=== PATIENT | male | born 1960 | race Caucasian/White ===

== ENCOUNTER 2016-04-23 21:01 | Inpatient (IN) | payer BC ==
[~2016-04-23] VITALS: Ht 165.1 cm; Wt 57.5 kg
[2016-04-23] MEDS ORDERED: ACETAMINOPHEN 325 MG TAB As Ordered ONE (21:35)
[2016-04-23 21:46] LABS: BASO % 0.2 % (0.0-1.0); EOS % 0.1 % (0.0-3.0); LARGE UNSTAINED CELL # 0.2 K/mm3 (0.0-0.4); LARGE UNSTAINED CELL % 1.6 % (0.0-4.0); LYMPH # 2.4 K/mm3 (1.5-4.5); LYMPH % 16.9 % (24.0-44.0); MEAN CORPUSCULAR HEMOGLOBIN 33.1 pg (27.0-33.0); MEAN CORPUSCULAR HGB CONC 33.7 g/dl (32.0-36.5); MONO # 0.8 K/mm3 (0.0-0.8); MONO % 5.4 % (0.0-5.0); NEUTROPHILS # 10.8 K/mm3 (1.8-7.7); NEUTROPHILS % 75.8 % (36.0-66.0); PLATELET COUNT, AUTOMATED 270 k/mm3 (150-450); RED CELL DISTRIBUTION WIDTH 13.1 % (11.5-14.5); WHITE BLOOD COUNT 14.2 K/mm3 (4.0-10.0)
[2016-04-23 21:49] LABS: ABG BASE EXCESS -4.9 (-2.0-2.0); ABG DEVICE NASAL CANN; ABG HCO3 18.3 MEQ/L (22.0-26.0); ABG PARTIAL PRESSURE CO2 29.7 mmHg (35.0-45.0); ABG PARTIAL PRESSURE O2 83.7 mmHg (75.0-100.0); ABG STANDARD HCO3 20.5 MEQ/L (22.0-26.0); ABG TOTAL CO2 19.2 MEQ/L (22.0-29.0); ABG pH (ARTERIAL) 7.408 UNITS (7.350-7.450)
[2016-04-23 22:04] LABS: ALBUMIN 3.4 GM/DL (3.2-5.2); ALBUMIN/GLOBULIN RATIO 1.13 (1.00-1.93); ALKALINE PHOSPHATASE 74 U/L (45-117); ALT/SGPT 34 U/L (12-78); ANION GAP 12 MEQ/L (8-16); AST/SGOT 27 U/L (15-37); BILIRUBIN,DIRECT < 0.1 MG/DL (0.0-0.2); BILIRUBIN,TOTAL 0.2 MG/DL (0.2-1.0); BLOOD UREA NITROGEN 15 MG/DL (7-18); CALCIUM LEVEL 8.9 MG/DL (8.5-10.1); CARBON DIOXIDE LEVEL 24 MEQ/L (21-32); CHLORIDE LEVEL 104 MEQ/L (98-107); CREATININE FOR GFR 1.11 MG/DL (0.70-1.30); GLOMERULAR FILTRATION RATE > 60.0 (>56); GLUCOSE, FASTING 115 MG/DL (70-105); POTASSIUM SERUM 3.9 MEQ/L (3.5-5.1); SODIUM LEVEL 140 MEQ/L (136-145); TOTAL PROTEIN 6.4 GM/DL (6.4-8.2)
[2016-04-23] MEDS ORDERED: dexameTHASONE 20 MG/5 ML VIAL (J1100) As Ordered ONE (22:22)
[2016-04-23] MEDS ORDERED: BACTRIM 160MG/800MG DS TAB As Ordered ONE (22:28)
[2016-04-23] MEDS ORDERED: IPRATROPIUM 0.5MG/ALBUTEROL 2.5MG INH SOL UD 3ML (DUONEB)(J7620) As Ordered ONE (22:56)
[2016-04-23] MEDS ORDERED: DOXYCYCLINE HYCLATE 100 MG in D5W MINI-BAG PLUS 100 ML IV SCH (23:00)
[2016-04-24] MEDS ORDERED: guaiFENesin DM LIQ 10ML UD PO SCH (00:45)
[2016-04-24] MEDS ORDERED: ISOVUE-370 76% 100ML VIAL (Q9967) As Ordered ONE (00:48)
--- NOTE | 2016-04-24 01:20 | REPUSA ---
CLINICAL HISTORY: Dyspnea, exclude PE. TECHNIQUE: Multiple incremental axial, coronal and oblique images are obtained from the thoracic inle t to the upper abdomen. Intravenous contrast material was administered as per pulmonary embolism prot ocol. COMMENTS: Bilateral atelectatic changes of the lower lobes with associated groundglass densities. There is excellent opacification of pulmonary arterial system without evidence for pulmonary embolism . Aorta is of normal caliber without evidence for dissection or aneurysm. There is no evidence of pleural or parenchymal mass. There are no pleural effusions. There is no evid ence of hilar or mediastinal lymphadenopathy. The heart and great vessels are within normal limits. Images of the upper abdomen demonstrate no evidence of adrenal mass. The bony structures are free of lytic or blastic lesions. IMPRESSION: No evidence for pulmonary embolism. Bilateral basilar atelectatic pulmonary changes with associated groundglass densities. Atelectasis ve rsus infection. Thank you for your kind referral of this patient.
[2016-04-24] MEDS ORDERED: BREO1INH3 INH (02:44)
[2016-04-24] MEDS ORDERED: SIMV40TA2 PO (02:44)
[2016-04-24] MEDS ORDERED: VITA10002 PO (02:44)
[2016-04-24] MEDS ORDERED: ODEF1TAB PO (02:44)
[2016-04-24] MEDS ORDERED: FIORCAP3 PO (02:44)
[2016-04-24] MEDS ORDERED: ZANT1TAB PO (02:44)
[2016-04-24] MEDS ORDERED: TESS100C PO (02:44)
[2016-04-24] MEDS ORDERED: VITA100066 PO (02:44)
[2016-04-24] MEDS ORDERED: ALBU17IN INH (02:44)
[2016-04-24] MEDS ORDERED: PRED20TA PO (02:44)
[2016-04-24] MEDS ORDERED: NORT50CA PO (02:44)
[2016-04-24] MEDS ORDERED: IPRATROPIUM 0.5MG/ALBUTEROL 2.5MG INH SOL UD 3ML (DUONEB)(J7620) NEB PRN (03:30)
[2016-04-24] MEDS ORDERED: ACETAMINOPHEN TAB 650MG DOSE (2X325MG) PO PRN (03:30)
[2016-04-24] MEDS ORDERED: FIOR1CAP PO (03:40)
[2016-04-24 04:00] VITALS: BP 131/74
--- NOTE | 2016-04-24 04:01 | EDDOCDS ---
Physician Documentation [facility] Name: Timmy Castillo Age: 56 yrs Sex: Male : 1960 Arrival Date: 04/23/2016 Time: 21:01 Bed 10 Private MD: Abdoulaye Disposition: 04/24/16 01:26 Hospitalization ordered by Purnima Perea for Inpatient Admission. Preliminary diagnosis are Acute bronchitis, unspecified, Dyspnea, Acute interstitial pneumonitis. - Bed requested for 5 Sidhu. - Status is Inpatient Admission. af2 - Condition is Stable. - Problem is an ongoing problem. - Symptoms have improved. Historical: - Allergies: No known drug Allergies; - Home Meds: 1. prednisone 20 mg Oral tab 2 tabs once daily 5 days 2. Tessalon Perles 100 mg Oral cap 1 cap 3 times per day 3. Ventolin Rotahaler/Rotacaps 200 mcg Inhl CpDv 200 mcg daily 4. Breo Ellipta 200-25 mcg/dose inhalation dsdv 1 puff once daily 5. nortriptyline 50 mg Oral cap 1 cap once daily 6. simvastatin 40 mg Oral tab 1 tab once daily 7. Fioricet 50-325-40 mg Oral tab 1 tab as needed 8. Vitamin B-12 2,000 mcg Oral TbER daily 9. Vitamin D Oral 1000 unit daily 10. Zantac 150 mg Oral tab 1 tab once daily 11. odefsey 1 tab daily - PMHx: High Cholesterol; HIV; Migraine Headaches; - PSHx: hernia repair x2; left rotator cuff; Right Rotator Cuff; Orchiectomy- Right; eye biopsy; - Social history: Smoking status: Patient uses tobacco products, current every day smoker. No barriers to communication noted, The patient speaks fluent Cambodian. - Family history: Not pertinent. - : The pt / caregiver states he / she is not on anticoagulants. Home medication list is obtained from the patient. - Exposure Risk Screening:: None identified. Vital Signs: 04/23 21:05 BP 123 / 78 (auto/); af2 21:07 Pulse 138 MON; Pulse Ox 99% ; af2 21:09 BP 123 / 78; Pulse 137; Resp 20; Temp 101.9(TE); Pulse Ox 99% ; Weight 58.97 kg / faby 130.01 lbs (R); Height 5 ft. 5 in. (165.10 cm) (R); Pain 0/10; 23:07 BP 124 / 66 (auto/); af2 23:07 Pulse 134 MON; Pulse Ox 97% ; af2 23:13 Pulse 138; bb3 23:37 Pulse 132 MON; Pulse Ox 90% ; af2 23:37 BP 115 / 59 (auto/); af2 04/24 00:07 BP 118 / 63 (auto/); af2 00:07 Pulse 134 MON; Pulse Ox 93% ; af2 00:27 Temp 98.3(O); af2 00:37 BP 124 / 71 (auto/); af2 00:59 Pulse 134 MON; Resp 28 S; Pulse Ox 95% on R/A; af2 01:07 BP 113 / 60 (auto/); af2 01:07 Pulse 130 MON; Resp 26 S; Pulse Ox 95% on R/A; af2 01:37 BP 121 / 73 (auto/); af2 01:37 Pulse 130 MON; Resp 26 S; Pulse Ox 94% on R/A; af2 02:07 BP 121 / 78 (auto/); af2 02:07 Pulse 130 MON; Pulse Ox 93% ; af2 02:37 Pulse 118 MON; Pulse Ox 96% ; af2 02:37 BP 106 / 58 (auto/); af2 03:07 BP 126 / 81 (auto/); af2 03:07 Pulse 124 MON; Resp 22 S; Temp 99.0(TE); Pulse Ox 96% ; af2 04/23 21:09 Body Mass Index 21.63 (58.97 kg, 165.10 cm) faby 04/23 21:09 RN aware of temp faby MDM: 21:17 ECG WITH READING ER PHYS+CARDIAG ordered. EDMS 21:27 Acetaminophen Tablet 975 mg PO once ordered. cs11 21:27 Call Respiratory ordered. cs11 21:28 -Arterial Blood Gas: room air Ordered. EDMS 21:28 -Blood Culture (Adults Only), peripheral from different site, or from device/port/PICC cs11 etc. if present ordered. 21:29 -Blood Culture Ordered. EDMS 21:29 Lactic Acid (Velásquez tube on ice) Ordered. EDMS 21:29 CBC with Diff Ordered. EDMS 21:29 MED Profile Ordered. EDMS 21:29 Liver Profile Ordered. EDMS 21:29 NS 0.9% 1000 ml IV at bolus once ordered. cs11 21:33 Call Respiratory complete. tmm1 21:34 Chest, 2 View (pa\E\lat) Ordered. EDMS 21:43 -Blood Culture (Adults Only), peripheral from different site, or from device/port/PICC tmm1 etc. if present complete. 21:44 BLOOD CULTURES Ordered. EDMS 22:00 -Arterial Blood Gas: room air Reviewed. cs11 22:00 CBC with Diff Reviewed. cs11 22:03 -Influenza A&B Rapid Antigen - Nose Ordered. EDMS 22:13 Lactic Acid (Velásquez tube on ice) Reviewed. cs11 22:13 MED Profile Reviewed. cs11 22:13 Liver Profile Reviewed. cs11 22:19 Albuterol-Ipratropium 1 neb Nebulizer every 20 minutes x3 ordered. cs11 22:19 Call Respiratory ordered. cs11 22:19 Dexamethasone 10 mg IV at bolus once ordered. cs11 22:21 Call Respiratory complete. tmm1 22:22 Doxycycline 100 mg IVPB once over 1 hrs; dilute in NS or D5W ordered. cs11 22:22 Trimethoprim-Sulfamethoxazole 160 mg-800 mg (DS) 1 tabs PO once ordered. cs11 22:27 Financial registration complete. [email or web address] 22:37 [facility] Payment Agreement was scanned into [employer] and attached to record. [email or web address] 23:42 -Influenza A&B Rapid Antigen - Nose Reviewed. cs11 01/02 00:10 Dextromethorphan-Guaifenesin Liquid 10 mg-100 mg/5 mL 10 ml PO once ordered. cs11 00:33 CT Chest Angio R/O PE Ordered. EDMS 01:27 BED REQUEST+ADM ordered. EDMS 03:30 LACTIC ACID LEVEL, LACTATE Ordered. EDMS 03:32 Admission / Observation Status ordered. EDMS 03:32 Admission / Observation Status ordered. EDMS 03:33 REGULAR DIET ordered. EDMS Administered Medications: 04/23 21:40 Drug: NS 0.9% 1000 ml [sodium chloride 0.9 % intravenous solution] Route: IV; Rate: af2 bolus; Site: left antecubital; 21:43 Drug: Acetaminophen 975 mg [acetaminophen 325 mg tablet (3 tabs)] Route: PO; af2 22:29 Drug: Dexamethasone 10 mg [dexamethasone 4 mg/mL injection solution] Route: IV; Rate: af2 bolus; Site: left antecubital; 04/24 01:00 Follow up: IV Status: Completed infusion af2 04/23 22:34 Drug: Trimethoprim-Sulfamethoxazole 1 tabs [sulfamethoxazole 800 mg-trimethoprim 160 mg [facility] tablet (1 tabs)] Route: PO; 04/24 01:00 Follow up: Response: No Adverse Reaction af2 04/23 22:50 Drug: Albuterol-Ipratropium 1 neb [ipratropium-albuterol 0.5 mg-3 mg(2.5 mg base)/3 mL bb3 nebulization soln (1 neb)] Route: Nebulizer; 23:13 Follow up: Pulse 138 bpm; lung sounds with small change in aeration. lung sounds with bb3 scattered coarse crackles and rhonchi. Pt had slight tremors after second neb tx. Pulse rate increased only by 8-10 bpm. Third neb withheld and will re-assess patient within 30 min. 22:50 Drug: Albuterol-Ipratropium 1 neb [ipratropium-albuterol 0.5 mg-3 mg(2.5 mg base)/3 mL bb3 nebulization soln (1 neb)] Route: Nebulizer; 22:59 Drug: Doxycycline 100 mg Route: IVPB; Infused Over: 1 hrs; Site: left antecubital; [facility] 23:39 Drug: Albuterol-Ipratropium 1 neb [ipratropium-albuterol 0.5 mg-3 mg(2.5 mg base)/3 mL bb3 nebulization soln (1 neb)] Route: Nebulizer; 23:48 Follow up: lung sounds with crackles throughout RML RLL LLL bb3 04/24 00:59 Drug: Dextromethorphan-Guaifenesin 10 ml [dextromethorphan-guaifenesin 10 mg-100 mg/5 af2 mL oral liquid (10 mL)] Route: PO; Signatures: Dispatcher [employer] Ashley Reyes, RN RN Scooter Loredo, DO cs11 McLear, Shelby, MANAGER FASHION MANAGER FASHION tmm1 Sruthi Sanchez RN RN af2 Bonnie Saavedra, Reg Reg [email or web address] Jose Combs bb3 Lissa Mcdowell RN [facility] The chart was reviewed and I authenticate all verbal orders and agree with the evaluation and treatment provided.Attachments: 04/23 22:37 [facility] Payment Agreement [email or web address]
--- NOTE | 2016-04-24 04:01 | EDDOCDS ---
Nurse's Notes [facility] Name: Timmy Castillo Age: 56 yrs Sex: Male : 1960 Arrival Date: 04/23/2016 Time: 21:01 Bed 10 Private MD: Abdoulaye Diagnosis: Acute bronchitis, unspecified;Dyspnea;Acute interstitial pneumonitis Presentation: 04/23 21:09 Presenting complaint: EMS states: pt has been treated for bronchitis for 5 weeks, af2 reports no improvement, increased difficulty breathing today. Adult Sepsis Screening: The patient does not have new or worsening altered mentation. Patient has a respiratory rate of greater than or equal to 22 (1 point). Systolic blood pressure is greater than 100. Patient has a qSOFA score of 1- Negative Sepsis Screen. Suicide/Homicide risk assessment- the patient denies having any suicidal and/or homicidal ideations and does not present with any other emotional, behavioral or mental health complaints. Status: Patient is not a social worker health services or dependent. Transition of care: patient was not received from another setting of care. 21:09 Method Of Arrival: Ambulance af2 21:09 Acuity: BILL Level 3 af2 21:17 Care prior to arrival: See EMS report. Medications administered prior to arrival: af2 Nebulized Albuterol, Solumedrol, IV initiated. Saline lock initiated. Oxygen administered by EMS. 21:45 Acuity level changed due to complexity of care. af2 21:45 Acuity: BILL Level 2 af2 Triage Assessment: 21:14 General: Appears ill, Behavior is cooperative. Pain: Location: posterior aspect of af2 right shoulder Pain currently is 4 out of 10 on a pain scale. HIV screening NA for this visit Offered previously. Respiratory: Onset: The symptoms/episode began/occurred 5 weeks, Airway is patent Respiratory effort is even, Respiratory pattern is tachypnea Breath sounds are clear bilaterally. Reports shortness of breath cough that is. Derm: Skin is normal. Historical: - Allergies: No known drug Allergies; - Home Meds: 1. prednisone 20 mg Oral tab 2 tabs once daily 5 days 2. Tessalon Perles 100 mg Oral cap 1 cap 3 times per day 3. Ventolin Rotahaler/Rotacaps 200 mcg Inhl CpDv 200 mcg daily 4. Breo Ellipta 200-25 mcg/dose inhalation dsdv 1 puff once daily 5. nortriptyline 50 mg Oral cap 1 cap once daily 6. simvastatin 40 mg Oral tab 1 tab once daily 7. Fioricet 50-325-40 mg Oral tab 1 tab as needed 8. Vitamin B-12 2,000 mcg Oral TbER daily 9. Vitamin D Oral 1000 unit daily 10. Zantac 150 mg Oral tab 1 tab once daily 11. odefsey 1 tab daily - PMHx: High Cholesterol; HIV; Migraine Headaches; - PSHx: hernia repair x2; left rotator cuff; Right Rotator Cuff; Orchiectomy- Right; eye biopsy; - Social history: Smoking status: Patient uses tobacco products, current every day smoker. No barriers to communication noted, The patient speaks fluent Micronesian. - Family history: Not pertinent. - : The pt / caregiver states he / she is not on anticoagulants. Home medication list is obtained from the patient. - Exposure Risk Screening:: None identified. Screenin:18 Screening information is obtained from the patient. Fall risk: No risks identified. af2 Assistance ADL's: requires no assistance with activities of daily living. Abuse/DV Screen: The patient / caregiver reports he/she is: not in a situation that causes fear, pain or injury. Nutritional screening: No deficits noted. Advance Directives: Advance directive information has been placed on a prior [facility] medical record, but the patient/ family does not know when. home support is adequate. Assessment: 21:41 General: Appears in no apparent distress, distressed, Behavior is cooperative. af2 Neurological: Level of Consciousness is awake, alert, Oriented to person, place, time. Cardiovascular: Heart tones S1 S2 present Rhythm is sinus tachycardia No ectopy. Respiratory: Airway is patent Respiratory effort is even, labored, Breath sounds are clear bilaterally. Derm: Skin is diaphoretic, Skin is pink, Skin temperature is hot. 22:16 General: Appears in no apparent distress, Behavior is cooperative, pt transported to CT af2 at this time. tolerated procedure well.. Neurological: Level of Consciousness is awake, alert, obeys commands, Oriented to person, place, time. Cardiovascular: Heart tones S1 S2 present Rhythm is sinus tachycardia No ectopy. Respiratory: Airway is patent Respiratory effort is even, labored, Reports shortness of breath cough that is. 23:05 General: Appears in no apparent distress, Behavior is cooperative, pt seated upright af2 position, states that is position of comfort. RT at bedside.. Neurological: Level of Consciousness is awake, alert. Respiratory: Airway is patent Respiratory effort is even, unlabored. Derm: Skin is normal. 23:54 General: Appears in no apparent distress, Behavior is cooperative. Neurological: Level af2 of Consciousness is awake, alert, obeys commands, Oriented to person, place, time. Cardiovascular: Rhythm is sinus tachycardia No ectopy. Respiratory: Airway is patent Respiratory effort is even, unlabored. Derm: Skin is normal. 04/24 01:01 General: Appears in no apparent distress, Behavior is cooperative, pt returned from CT af2 at this time, tolerated procedure well. piv patent, clear.. Neurological: Level of Consciousness is awake, alert, obeys commands. Cardiovascular: Rhythm is sinus tachycardia No ectopy. Respiratory: Airway is patent Respiratory effort is even, unlabored, Respiratory pattern is tachypnea. Derm: Skin is normal. 02:00 General: Appears in no apparent distress, Behavior is cooperative. Neurological: Level af2 of Consciousness is awake, alert, obeys commands, Oriented to person, place, time. Respiratory: Airway is patent Respiratory effort is even, unlabored. Derm: Skin is normal. 03:28 General: Appears in no apparent distress, Behavior is cooperative. Neurological: Level af2 of Consciousness is awake, alert, obeys commands, Oriented to person, place, time. Respiratory: Airway is patent Respiratory effort is even, unlabored. Derm: Skin is normal. Vital Signs: 04/23 21:05 BP 123 / 78 (auto/); af2 21:07 Pulse 138 MON; Pulse Ox 99% ; af2 21:09 BP 123 / 78; Pulse 137; Resp 20; Temp 101.9(TE); Pulse Ox 99% ; Weight 58.97 kg (R); faby Height 5 ft. 5 in. (165.10 cm) (R); Pain 0/10; 23:07 BP 124 / 66 (auto/); af2 23:07 Pulse 134 MON; Pulse Ox 97% ; af2 23:13 Pulse 138; bb3 23:37 Pulse 132 MON; Pulse Ox 90% ; af2 23:37 BP 115 / 59 (auto/); af2 04/24 00:07 BP 118 / 63 (auto/); af2 00:07 Pulse 134 MON; Pulse Ox 93% ; af2 00:27 Temp 98.3(O); af2 00:37 BP 124 / 71 (auto/); af2 00:59 Pulse 134 MON; Resp 28 S; Pulse Ox 95% on R/A; af2 01:07 BP 113 / 60 (auto/); af2 01:07 Pulse 130 MON; Resp 26 S; Pulse Ox 95% on R/A; af2 01:37 BP 121 / 73 (auto/); af2 01:37 Pulse 130 MON; Resp 26 S; Pulse Ox 94% on R/A; af2 02:07 BP 121 / 78 (auto/); af2 02:07 Pulse 130 MON; Pulse Ox 93% ; af2 02:37 Pulse 118 MON; Pulse Ox 96% ; af2 02:37 BP 106 / 58 (auto/); af2 03:07 BP 126 / 81 (auto/); af2 03:07 Pulse 124 MON; Resp 22 S; Temp 99.0(TE); Pulse Ox 96% ; af2 04/23 21:09 Body Mass Index 21.63 (58.97 kg, 165.10 cm) faby 04/23 21:09 RN aware of temp faby Vitals: 04/24 03:48 Log In Time N/A - ambulance arrival. af2 ED Course: 04/23 21:02 Patient visited by Shelby Daily PCA. tmm1 21:02 Abdoulaye is Private Physician. tmm1 21:02 Patient moved to Waiting tmm1 21:03 Sruthi Sanchez,RN is Primary Nurse. tmm1 21:03 Patient moved to 10 tmm1 21:07 Scooter Weathers DO is Attending Physician. cs11 21:07 Patient visited by Scooter Weathers DO. cs11 21:09 Pt greeted and oriented to ED. Patient advised of names of staff involved in care, faby location of call [place], wait times and NPO status. Accompanied by Significant Other, Patient has correct armband on for positive identification. Placed in gown. Bed in low position. Call light in reach. Side rails up X2. tipple engineer on. Pulse ox on. NIBP on. 21:10 Patient visited by Savi Akhtar PCA. faby 21:11 Triage Initiated af2 21:18 The patient / caregiver is instructed regarding the plan of care and ED course. af2 21:18 Inserted saline lock: 18 gauge in left antecubital area The patient tolerated the af2 procedure well. 21:23 EKG done. (by ED staff). Reviewed by Scooter Weathers DO. faby 21:24 Patient visited by Savi Akhtar PCA. faby 21:41 Patient visited by Sruthi Sanchez RN. af2 21:45 -Arterial Blood Gas: room air Sent. bb3 21:46 Patient visited by Sruthi Sanchez RN. af2 22:06 Notified attending ED physician of Critical lab value. sls1 22:30 Patient visited by Sruthi Sanchez RN. af2 22:37 [facility] Payment Agreement was scanned into [facility] and attached to record. ks16 22:55 -Influenza A&B Rapid Antigen - Nose Sent. af2 23:05 Patient visited by Sruthi Sanchez RN. af2 23:07 Patient visited by Sruthi Sanchez RN. af2 23:54 Patient visited by Sruthi Sanchez RN. af2 01 00:25 Patient visited by Sruthi Sanchez RN. af2 00:25 Patient visited by Sruthi Sanchez RN. af2 00:28 Patient visited by Sruthi Sanchez RN. af2 01:02 Patient visited by Sruthi Sanchez RN. af2 01:23 Purnima Perea is Hospitalizing Provider. cs11 01:23 CT Chest Angio R/O PE Returned. EDMS 01:50 Patient visited by Sruthi Sanchez RN. af2 03:29 Patient visited by Sruhti Sanchez RN. af2 03:49 No procedures done that require assistance. af2 03:52 Patient visited by Sruthi Sanchez RN. af2 Administered Medications: 04/23 21:40 Drug: NS 0.9% 1000 ml [sodium chloride 0.9 % intravenous solution] Route: IV; Rate: af2 bolus; Site: left antecubital; 21:43 Drug: Acetaminophen 975 mg [acetaminophen 325 mg tablet (3 tabs)] Route: PO; af2 22:29 Drug: Dexamethasone 10 mg [dexamethasone 4 mg/mL injection solution] Route: IV; Rate: af2 bolus; Site: left antecubital; 04/24 01:00 Follow up: IV Status: Completed infusion af2 04/23 22:34 Drug: Trimethoprim-Sulfamethoxazole 1 tabs [sulfamethoxazole 800 mg-trimethoprim 160 mg [facility] tablet (1 tabs)] Route: PO; 04/24 01:00 Follow up: Response: No Adverse Reaction af2 04/23 22:50 Drug: Albuterol-Ipratropium 1 neb [ipratropium-albuterol 0.5 mg-3 mg(2.5 mg base)/3 mL bb3 nebulization soln (1 neb)] Route: Nebulizer; 23:13 Follow up: Pulse 138 bpm; lung sounds with small change in aeration. lung sounds with bb3 scattered coarse crackles and rhonchi. Pt had slight tremors after second neb tx. Pulse rate increased only by 8-10 bpm. Third neb withheld and will re-assess patient within 30 min. 22:50 Drug: Albuterol-Ipratropium 1 neb [ipratropium-albuterol 0.5 mg-3 mg(2.5 mg base)/3 mL bb3 nebulization soln (1 neb)] Route: Nebulizer; 22:59 Drug: Doxycycline 100 mg Route: IVPB; Infused Over: 1 hrs; Site: left antecubital; [facility] 23:39 Drug: Albuterol-Ipratropium 1 neb [ipratropium-albuterol 0.5 mg-3 mg(2.5 mg base)/3 mL bb3 nebulization soln (1 neb)] Route: Nebulizer; 23:48 Follow up: lung sounds with crackles throughout RML RLL LLL bb3 04/24 00:59 Drug: Dextromethorphan-Guaifenesin 10 ml [dextromethorphan-guaifenesin 10 mg-100 mg/5 af2 mL oral liquid (10 mL)] Route: PO; Intake: RT: 04/23 21:45 ABG's drawn from left radial artery pressure held for 5 minutes no bleeding noted bb3 pressure bandage applied specimen sent pt. tolerated well. Oxygen is room air. 22:49 Initial Med Neb Given as ordered Patient was instructed and evaluated on procedure bb3 Subsequent Med Neb Given as ordered Patient was reinforced on procedure. 22:50 Respiratory: Respiratory effort is even, Respiratory pattern is regular symmetrical, bb3 scattered rhonchi with bilateral LL rales. Pt has a strong hacking productive cough with clear thick sputum. 23:11 Respiratory: lung sounds with small change in aeration. lung sounds with scattered bb3 coarse crackles and rhonchi. Pt had slight tremors after second neb tx. Pulse rate increased only by 8-10 bpm. Third neb withheld and will re-assess patient within 30 min. 23:39 Subsequent Med Neb Given as ordered. bb3 23:47 Respiratory: strong congested productive cough Breath sounds with crackles in left bb3 posterior lower lobe, right posterior middle lobe and right posterior lower lobe. Order Results: Lab Order: -Arterial Blood Gas: room air; SPEC'M 04/23/16 21:36 Test: ABG pH (ARTERIAL); Value: 7.408; Range: 7.350-7.450; Units: UNITS; Status: F Test: ABG PARTIAL PRESSURE CO2; Value: 29.7; Range: 35.0-45.0; Abnormal: Below low normal; Units: mmHg; Status: F Test: ABG PARTIAL PRESSURE O2; Value: 83.7; Range: 75.0-100.0; Units: mmHg; Status: F Test: ABG TOTAL CO2; Value: 19.2; Range: 22.0-29.0; Abnormal: Below low normal; Units: MEQ/L; Status: F Test: ABG HCO3; Value: 18.3; Range: 22.0-26.0; Abnormal: Below low normal; Units: MEQ/L; Status: F Test: ABG BASE EXCESS; Value: -4.9; Range: -2.0-2.0; Abnormal: Below low normal; Status: F Test: ABG STANDARD HCO3; Value: 20.5; Range: 22.0-26.0; Abnormal: Below low normal; Units: MEQ/L; Status: F Test: ABG O2 SATURATION; Value: 97.1; Range: 95.0-99.0; Units: %; Status: F Test: ABG DEVICE; Value: NASAL ALISON; Status: F Lab Order: Lactic Acid (Velásquez tube on ice); SPEC'M 04/23/16 21:31 Test: LACTIC ACID LEVEL, LACTATE; Value: 4.1; Range: 0.4-2.0; Abnormal: Above upper panic limits; Units: MMOL/L; Status: F Lab Order: CBC with Diff; SPEC'M 04/23/16 21:31 Test: WHITE BLOOD COUNT; Value: 14.2; Range: 4.0-10.0; Abnormal: Above high normal; Units: K/mm3; Status: F Test: RED BLOOD COUNT; Value: 4.62; Range: 4.30-6.10; Units: M/mm3; Status: F Test: HEMOGLOBIN; Value: 15.3; Range: 14.0-18.0; Units: g/dl; Status: F Test: HEMATOCRIT; Value: 45.3; Range: 42.0-52.0; Units: %; Status: F Test: MEAN CORPUSCULAR VOLUME; Value: 98.0; Range: 80.0-96.0; Abnormal: Above high normal; Units: fl; Status: F Test: MEAN CORPUSCULAR HEMOGLOBIN; Value: 33.1; Range: 27.0-33.0; Abnormal: Above high normal; Units: pg; Status: F Test: MEAN CORPUSCULAR HGB CONC; Value: 33.7; Range: 32.0-36.5; Units: g/dl; Status: F Test: RED CELL DISTRIBUTION WIDTH; Value: 13.1; Range: 11.5-14.5; Units: %; Status: F Test: PLATELET COUNT, AUTOMATED; Value: 270; Range: 150-450; Units: k/mm3; Status: F Test: NEUTROPHILS %; Value: 75.8; Range: 36.0-66.0; Abnormal: Above high normal; Units: %; Status: F Test: LYMPH %; Value: 16.9; Range: 24.0-44.0; Abnormal: Below low normal; Units: %; Status: F Test: MONO %; Value: 5.4; Range: 0.0-5.0; Abnormal: Above high normal; Units: %; Status: F Test: EOS %; Value: 0.1; Range: 0.0-3.0; Units: %; Status: F Test: BASO %; Value: 0.2; Range: 0.0-1.0; Units: %; Status: F Test: LARGE UNSTAINED CELL %; Value: 1.6; Range: 0.0-4.0; Units: %; Status: F Test: NEUTROPHILS #; Value: 10.8; Range: 1.8-7.7; Abnormal: Above high normal; Units: K/mm3; Status: F Test: LYMPH #; Value: 2.4; Range: 1.5-4.5; Units: K/mm3; Status: F Test: MONO #; Value: 0.8; Range: 0.0-0.8; Units: K/mm3; Status: F Test: EOS #; Value: 0.0; Range: 0.0-0.50; Units: K/mm3; Status: F Test: BASO #; Value: 0.0; Range: 0.0-0.2; Units: K/mm3; Status: F Test: LARGE UNSTAINED CELL #; Value: 0.2; Range: 0.0-0.4; Units: K/mm3; Status: F Lab Order: MED Profile; SPEC'M 04/23/16 21:31 Test: GLUCOSE, FASTING; Value: 115; Range: 70-105; Abnormal: Above high normal; Units: MG/DL; Status: F Test: BLOOD UREA NITROGEN; Value: 15; Range: 7-18; Units: MG/DL; Status: F Test: CREATININE FOR GFR; Value: 1.11; Range: 0.70-1.30; Units: MG/DL; Status: F Test: GLOMERULAR FILTRATION RATE; Value: > 60.0; Range: >56; Status: F Test: SODIUM LEVEL; Value: 140; Range: 136-145; Units: MEQ/L; Status: F Test: POTASSIUM SERUM; Value: 3.9; Range: 3.5-5.1; Units: MEQ/L; Status: F Test: CHLORIDE LEVEL; Value: 104; Range: 98-107; Units: MEQ/L; Status: F Test: CARBON DIOXIDE LEVEL; Value: 24; Range: 21-32; Units: MEQ/L; Status: F Test: ANION GAP; Value: 12; Range: 8-16; Units: MEQ/L; Status: F Test: CALCIUM LEVEL; Value: 8.9; Range: 8.5-10.1; Units: MG/DL; Status: F Test Note: ; Units are mL/min/1.73 m2 Chronic Kidney Disease Staging per NKF: Stage I & II GFR >=60 Normal to Mildly Decreased Stage III GFR 30-59 Moderately Decreased Stage IV GFR 15-29 Severely Decreased Stage V GFR <15 Very Little GFR Left ESRD GFR <15 on SECURITIES UNDERWRITER Lab Order: Liver Profile; SPEC'M 04/23/16 21:31 Test: AST/SGOT; Value: 27; Range: 15-37; Units: U/L; Status: F Test: ALT/SGPT; Value: 34; Range: 12-78; Units: U/L; Status: F Test: ALKALINE PHOSPHATASE; Value: 74; Range: 45-117; Units: U/L; Status: F Test: BILIRUBIN,TOTAL; Value: 0.2; Range: 0.2-1.0; Units: MG/DL; Status: F Test: BILIRUBIN,DIRECT; Value: < 0.1; Range: 0.0-0.2; Units: MG/DL; Status: F Test: TOTAL PROTEIN; Value: 6.4; Range: 6.4-8.2; Units: GM/DL; Status: F Test: ALBUMIN; Value: 3.4; Range: 3.2-5.2; Units: GM/DL; Status: F Test: ALBUMIN/GLOBULIN RATIO; Value: 1.13; Range: 1.00-1.93; Status: F Lab Order: -Influenza A&B Rapid Antigen - Nose; SPEC'M 04/23/16 22:51 Test: INFLUENZA A RAPID SCR by ICA; Value: INFLUENZA A RESULTS NEGATIVE; Status: F Test: INFLUENZA A RAPID SCR by ICA; Value: Comments:; Status: F Test: INFLUENZA B RAPID SCR by ICA; Value: INFLUENZA B RESULTS NEGATIVE; Status: F Test Note: ; The Influenza test is a direct rapid immunoassay for the qualitative detection of Influenza viral antigen. Cell culture (Viral Culture) testing should be considered to confirm NEGATIVE results and to assist in detecting other viruses that can provide similar clinical symptoms. Please contact the lab within 24 hours ([phone]) if confirmatory testing is desired. Radiology Order: CT Chest Angio R/O PE Test: CT Chest Angio R/O PE REASON FOR EXAMINATION: Shortness of Breath; ; CLINICAL HISTORY: Dyspnea, exclude PE.; TECHNIQUE: Multiple incremental axial, coronal and oblique images are obtained from the thoracic inle; t to the upper abdomen. Intravenous contrast material was administered as per pulmonary embolism prot; ocol.; COMMENTS:; Bilateral atelectatic changes of the lower lobes with associated groundglass densities.; There is excellent opacification of pulmonary arterial system without evidence for pulmonary embolism; . Aorta is of normal caliber without evidence for dissection or aneurysm.; There is no evidence of pleural or parenchymal mass. There are no pleural effusions. There is no evid; ence of hilar or mediastinal lymphadenopathy. The heart and great vessels are within normal limits.; Images of the upper abdomen demonstrate no evidence of adrenal mass.; The bony structures are free of lytic or blastic lesions.; IMPRESSION:; No evidence for pulmonary embolism.; Bilateral basilar atelectatic pulmonary changes with associated groundglass densities. Atelectasis ve; rsus infection.; Thank you for your kind referral of this patient.; ; Outcome: 04/24 01:26 Decision to Hospitalize by Provider. cs11 03:48 Discharge Assessment: patient administered narcotics - no. The following High Risk af2 Discharge criteria are identified: None. Admitted to Med/Surg accompanied by tech, via stretcher, with chart. Condition: stable. CT Study completed. Property :Personal belongings accompany Pt. 04:00 Patient left the ED. af2 Signatures: Dispatcher [employer] EDMS Jose Combs bb3 Savi Akhtar, LITHOGRAPHIC PROOFER LITHOGRAPHIC PROOFER Kaur Lowe, RN RN sls1 Lissa McdowellRN RN [facility] Scooter Weathers, DO cs11 Shelby Daily, LITHOGRAPHIC PROOFER LITHOGRAPHIC PROOFER tmm1 Sruthi Sanchez RN RN af2 Bonnie Saavedra, Reg Reg ks16 Corrections: (The following items were deleted from the chart) 03:56 03:07 Pulse 124bpm; Monitor; Pulse Ox 96%; af2 af2 MTDD
[2016-04-24] MEDS: methylPREDNISolone INJ 40 MG/1 ML VIAL (J2920) IV SCH ×2 (05:50→17:05)
[2016-04-24] MEDS: HEPARIN SOD (PORCINE) 5000 UNITS/ML VIAL SC SCH ×3 (05:50→21:42)
[2016-04-24] MEDS: guaiFENesin SYRUP 200 MG/10 ML UDC PO PRN ×2 (05:51→20:27)
[2016-04-24] MEDS ORDERED: SODIUM CHLORIDE 0.9% 1000 ML IV ONE ×3 (07:15→16:45)
[2016-04-24 07:33] LABS: BASO % 0.1 % (0.0-1.0); EOS % 0.1 % (0.0-3.0); LARGE UNSTAINED CELL # 0.1 K/mm3 (0.0-0.4); LARGE UNSTAINED CELL % 0.5 % (0.0-4.0); LYMPH # 0.3 K/mm3 (1.5-4.5); LYMPH % 2.7 % (24.0-44.0); MEAN CORPUSCULAR HEMOGLOBIN 33.5 pg (27.0-33.0); MEAN CORPUSCULAR HGB CONC 33.5 g/dl (32.0-36.5); MEAN CORPUSCULAR VOLUME 100.1 fl (80.0-96.0); MONO # 0.2 K/mm3 (0.0-0.8); MONO % 1.5 % (0.0-5.0); NEUTROPHILS % 95.2 % (36.0-66.0); PLATELET COUNT, AUTOMATED 241 k/mm3 (150-450); RED CELL DISTRIBUTION WIDTH 13.2 % (11.5-14.5); WHITE BLOOD COUNT 10.5 K/mm3 (4.0-10.0)
[2016-04-24 07:44] LABS: ALBUMIN 3.3 GM/DL (3.2-5.2); ALBUMIN/GLOBULIN RATIO 1.1 (1.00-1.93); BILIRUBIN,TOTAL 0.2 MG/DL (0.2-1.0); CALCIUM LEVEL 8.8 MG/DL (8.5-10.1); CREATININE FOR GFR 1.38 MG/DL (0.70-1.30); GLOMERULAR FILTRATION RATE 56.7 (>56); POTASSIUM SERUM 4.1 MEQ/L (3.5-5.1); TOTAL PROTEIN 6.3 GM/DL (6.4-8.2)
[2016-04-24] MEDS: SIMVASTATIN 40 MG TAB PO SCH (07:52)
[2016-04-24] MEDS ORDERED: VANCOMYCIN HCL 1,000 MG, VIAL MATE ADAPTER 1 EACH in D5W 250 ML IV ONE (08:00)
[2016-04-24 08:15] VITALS: BP 135/77
--- NOTE | 2016-04-24 08:32 | PHACANCOPD ---
PHARMACY VANCOMYCIN DOSING Pt Demographics Demographics Patient Age:56 , Weight: , Gender: male Adjusted Body Weight Date: 04/24/16, Adjusted Body Weight: Kg Events Past 24 Hours Events Past 24 Hours: YES: Change in CrCl, Pending Diagnostics Vancomycin Vancomycin indication: ?SEPSIS Vancomycin Target Ranges: 15-20 mcg/ml Vancomycin Load Y/N: Yes Load Dose Date Time Vancomycin Load Dose: 1000MG Date: 04/24/16 Time: 0800 Vancomycin Dose Date: 04/24/16. Current Vancomycin Dose: Intermittent Dosing?: No Labs Labs Item Value Date Time White Blood Count 14.2 K/mm3 H 04/23/16 2131 White Blood Count 10.5 K/mm3 H 04/24/16 0614 Creatinine 1.11 MG/DL 04/23/16 2131 Creatinine 1.38 MG/DL H 04/24/16 0614 Micro Microbiology 04/23/16 Blood Culture, Received Pending 04/23/16 Blood Culture, Received Pending 04/23/16 Influenza Virus Type A Antigen - Final, Complete 04/23/16 Influenza Virus Type B Antigen - Final, Complete Creatinine Clearance Date:04/24/16. Creatinine Clearance: [49]. Assessment and Plan Maintaining Current Dose?: No Reason for dose change: Other Pharmacist Note Pharmacist Note Date: 04/24/16. Pharmacist note: New Vanco consult today. Patient was given Vanco 1gm IV one time as per provider order verified and entered before this consult was finished. Blood cultures are pending. Patient was started on Vancomycin 750mg IV Q12H starting 04/24/16 @ 2000. Trough scheduled for 1900 on 04/25/16. Continue to monitor renal function. Patricia Ball Pharm.D. Apr 24, 2016 08:32
[2016-04-24] MEDS ORDERED: raNITIdine SYRUP 150 MG/10 ML UDC PO SCH (09:00)
[2016-04-24 09:12] LABS: ABG PARTIAL PRESSURE CO2 28.4 mmHg (35.0-45.0); ABG PARTIAL PRESSURE O2 94.9 mmHg (75.0-100.0); ABG STANDARD HCO3 20.4 MEQ/L (22.0-26.0); ABG TOTAL CO2 18.9 MEQ/L (22.0-29.0)
--- NOTE | 2016-04-24 10:08 | ECGEPIP ---
Stationary ECG Study [facility] - ED Test Date: 2016-04-23 Pat Name: ZELDA GALLARDO Department: Room: [place] [address] Gender: M Occupational Therapy Assist: joel : 1960 Requested By: ROBB DOMINIQUE Order Number: [id number] Reading MD: Monse Parks Measurements Intervals [place] Rate: 143 P: 39 AR: 124 QRS: -22 QRSD: 96 T: 36 QT: 304 QTc: 470 Interpretive Statements SINUS TACHYCARDIA, LESS LIKELY ATRIAL FLUTTER BORDERLINE LEFT AXIS DEVIATION NSTTW ABNORMALITY INCREASED RATE 04/15/15 ABNORMAL RHYTHM ECG Electronically Signed On 04-24-2016 10:07:59 EST by Monse Parks
[2016-04-24] MEDS: CEFEPIME HCL 2 GM in D5W MINI-BAG PLUS 50 ML IV SCH ×2 (10:13→21:41)
[2016-04-24] MEDS ORDERED: DOXYCYCLINE HYCLATE 100 MG in D5W MINI-BAG PLUS 100 ML IV SCH (11:00)
[2016-04-24 12:00] VITALS: BP 147/81
--- NOTE | 2016-04-24 13:20 | REP ---
Clinical: Shortness of breath . Comparison: 04/21/2016 . Technique: PA and lateral. Findings: The mediastinum and cardiac silhouette are normal. The lung mcneill are clear and without acute consolidation, effusion, or pneumothorax. The skeletal structures are intact and normal. Impression: 1. No acute cardiopulmonary process. Signed by Tyrell Galindo MD 04/24/2016 01:13 P
[2016-04-24] MEDS: NICOTINE 14 MG/24 HR TRANSDERMAL TD SCH (13:47)
[2016-04-24] MEDS: raNITIdine SYRUP 150 MG/10 ML UDC PO SCH (13:47)
--- NOTE | 2016-04-24 15:05 | IPNPDOC ---
Text Note Date of Service The patient was seen on 04/24/16 at 15:01. NOTE Update: Upon evaluating patient patient was tachypneic, tachycardic, however no use of accessory muscles. It was noted that the patient's lactate was 8.1. Patient was transferred to PCU. Patient had 2 L bolus of normal saline, and started on vancomycin and cefepime for HCAP. Shortness of breath significantly improved. Lactate trended down to 2.5. Patient is now resting comfortably in bed. Still with mild tachycardia. No dyspnea. Continue close observation and repeat lactate. VS,Fishbone, I+O VS, Fishbone, I+O Laboratory Tests 04/23/16 21:31 Red Blood Count 4.62, Mean Corpuscular Volume 98.0 H, Mean Corpuscular Hemoglobin 33.1 H, Mean Corpuscular Hemoglobin Concent 33.7, Red Cell Distribution Width 13.1, Neutrophils (%) (Auto) 75.8 H, Lymphocytes (%) (Auto) 16.9 L, Monocytes (%) (Auto) 5.4 H, Eosinophils (%) (Auto) 0.1, Basophils (%) ( Auto) 0.2, Neutrophils # (Auto) 10.8 H, Lymphocytes # (Auto) 2.4, Monocytes # ( Auto) 0.8, Eosinophils # (Auto) 0.0, Basophils # (Auto) 0.0 04/24/16 06:14 Red Blood Count 4.11 L, Mean Corpuscular Volume 100.1 H, Mean Corpuscular Hemoglobin 33.5 H, Mean Corpuscular Hemoglobin Concent 33.5, Red Cell Distribution Width 13.2, Neutrophils (%) (Auto) 95.2 H, Lymphocytes (%) (Auto) 2.7 L, Monocytes (%) (Auto) 1.5, Eosinophils (%) (Auto) 0.1, Basophils (%) (Auto ) 0.1, Neutrophils # (Auto) 10.0 H, Lymphocytes # (Auto) 0.3 L, Monocytes # ( Auto) 0.2, Eosinophils # (Auto) 0.0, Basophils # (Auto) 0.0, Calcium Level 8.8, Aspartate Amino Transf (AST/SGOT) 39 H, Alanine Aminotransferase (ALT/SGPT) 36, Alkaline Phosphatase 69, Total Bilirubin 0.2, Total Protein 6.3 L, Albumin 3.3 Vital Signs Date Time Temp Pulse Resp B/P Pulse Ox O2 Delivery O2 Flow Rate FiO2 04/24/16 12:48 Nasal Cannula 2.0 04/24/16 12:00 98.6 123 18 147/81 93 I&O- Last 24 Hours up to 6 AM 04/24/16 06:00 Intake Total 360 ml Output Total 200 ml Balance 160 ml MOON LOPES MD Apr 24, 2016 15:05
[2016-04-24] MEDS: NS 1,000 ML IV SCH ×2 (15:14→17:05)
[2016-04-24 15:40] VITALS: BP 140/52
[2016-04-24 16:21] LABS: ANION GAP 11 MEQ/L (8-16); BLOOD UREA NITROGEN 12 MG/DL (7-18); CALCIUM LEVEL 8.7 MG/DL (8.5-10.1); CARBON DIOXIDE LEVEL 22 MEQ/L (21-32); CHLORIDE LEVEL 108 MEQ/L (98-107); CREATININE FOR GFR 0.91 MG/DL (0.70-1.30); GLOMERULAR FILTRATION RATE > 60.0 (>56); GLUCOSE, FASTING 111 MG/DL (70-105); POTASSIUM SERUM 3.9 MEQ/L (3.5-5.1); SODIUM LEVEL 141 MEQ/L (136-145)
--- NOTE | 2016-04-24 16:34 | ECGEPIP ---
Stationary ECG Study [facility] Test Date: 2016-04-24 Pat Name: ZELDA GALLARDO Department: Room: [place] [address] Gender: M Online Marketer: TIFFANY : 1960 Requested By: MOON LOPES Order Number: [id number] Reading MD: Lion Winter Measurements Intervals [place] Rate: 124 P: 48 ID: [id number] QRS: -18 QRSD: 100 T: 33 QT: 324 QTc: 467 Interpretive Statements SINUS TACHYCARDIA NONSPECIFIC T-WAVE ABNORMALITY ABNORMAL RHYTHM ECG LAST TRACING ON 04/23/2016 AT 21:20:05, HEART RATE IS NOW SLOWER OTHERWISE NO SIGNIFICANT CHANGES Electronically Signed On 04-24-2016 16:33:46 EST by Lion Winter
[2016-04-24 19:43] VITALS: BP 142/85
[2016-04-24] MEDS: VANCOMYCIN HCL 750 MG, VIAL MATE ADAPTER 1 EACH in D5W 250 ML IV SCH (20:01)
[2016-04-24] MEDS: ADVAIR DISKUS 500/50 INH PWD INH SCH (20:15)
[2016-04-24] MEDS: ODEFSEY PO SCH (21:00)
[2016-04-24] MEDS: NORTRIPTYLINE 25 MG CAP PO SCH (21:41)
[2016-04-25] VITALS (7 sets, daily range): BP systolic 101–128; BP diastolic 8–89
[2016-04-25 05:34] LABS: BASO # 0.2 K/mm3 (0.0-0.2); EOS % 0.4 % (0.0-3.0); LARGE UNSTAINED CELL # 0.2 K/mm3 (0.0-0.4); LARGE UNSTAINED CELL % 1.9 % (0.0-4.0); LYMPH # 1.8 K/mm3 (1.5-4.5); LYMPH % 12.3 % (24.0-44.0); MEAN CORPUSCULAR HEMOGLOBIN 31.9 pg (27.0-33.0); MEAN CORPUSCULAR HGB CONC 32.4 g/dl (32.0-36.5); MEAN CORPUSCULAR VOLUME 98.5 fl (80.0-96.0); MONO # 0.8 K/mm3 (0.0-0.8); MONO % 6.2 % (0.0-5.0); NEUTROPHILS # 9.6 K/mm3 (1.8-7.7); NEUTROPHILS % 77.3 % (36.0-66.0); PLATELET COUNT, AUTOMATED 232 k/mm3 (150-450); RED CELL DISTRIBUTION WIDTH 14.1 % (11.5-14.5); WHITE BLOOD COUNT 12.4 K/mm3 (4.0-10.0)
[2016-04-25 05:55] LABS: ANION GAP 9 MEQ/L (8-16); BLOOD UREA NITROGEN 12 MG/DL (7-18); CALCIUM LEVEL 8.6 MG/DL (8.5-10.1); CARBON DIOXIDE LEVEL 25 MEQ/L (21-32); CHLORIDE LEVEL 107 MEQ/L (98-107); CREATININE FOR GFR 0.83 MG/DL (0.70-1.30); GLOMERULAR FILTRATION RATE > 60.0 (>56); GLUCOSE, FASTING 102 MG/DL (70-105); POTASSIUM SERUM 3.8 MEQ/L (3.5-5.1); SODIUM LEVEL 141 MEQ/L (136-145)
[2016-04-25] MEDS: methylPREDNISolone INJ 40 MG/1 ML VIAL (J2920) IV SCH ×2 (06:16→18:47)
[2016-04-25] MEDS: HEPARIN SOD (PORCINE) 5000 UNITS/ML VIAL SC SCH ×3 (06:17→21:17)
[2016-04-25] MEDS: NS 1,000 ML IV SCH ×2 (06:17→15:15)
[2016-04-25] MEDS: ADVAIR DISKUS 500/50 INH PWD INH SCH ×2 (07:49→19:50)
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
[2016-04-25] MEDS: VANCOMYCIN HCL 750 MG, VIAL MATE ADAPTER 1 EACH in D5W 250 ML IV SCH (08:11)
[2016-04-25] MEDS ORDERED: LevoFLOXacin 500 MG in APPROPRIATE DILUENT 1 EA IV SCH (09:00)
[2016-04-25] MEDS: CEFEPIME HCL 2 GM in D5W MINI-BAG PLUS 50 ML IV SCH ×2 (09:45→21:17)
[2016-04-25] MEDS: SIMVASTATIN 40 MG TAB PO SCH (09:45)
[2016-04-25] MEDS: NICOTINE 14 MG/24 HR TRANSDERMAL TD SCH (09:45)
[2016-04-25] MEDS: raNITIdine SYRUP 150 MG/10 ML UDC PO SCH (09:46)
--- NOTE | 2016-04-25 13:25 | IPNPDOC ---
Text Note Date of Service The patient was seen on 04/25/16 at 13:15. NOTE Subjective: Patient is a 56 year old male with a PMHx of HIV on HAART (01/2016 - CD4: 600s, VL: UD) who preselected to the ER with shortness of breath, and productive cough. Patient has received an azithromycin pack and prednisone as an outpatient, but failed to improve. Patient was initially admitted for COPD exacerbation, but was later found to have an elevated lactic acid, severely tachypneic and tachycardic. He was found to have HCAP pneumonia. He was started on broad spectrum antibiotics and IV fluid hydration. Patient was seen and examined at the bedside. Clinically he notes improvement in his breathing. He notes that his baseline heart rate is always in the 100s to 110s. Objective: Vitals (see below) General: Lying in bed, no acute distress, AAOx3 HEENT: NC, AT CVS: Tachycardic, regular rhythm, +S1S2 Lungs: Fair air entry b/l, - w/ r/r Abdomen: Soft, ND, NT, +BSx4 Extremities: +PPx4, - edema, - calf tenderness Assessment and plan: 1. Sepsis 2/2 HCAP pneumonia - Clinically has improvement in his breathing - CTA 1/2 - Bilateral basilar atelectatic pulmonary changes with associated groundglass densities. Atelectasis versus infection - Influenza negative; blood cultures negative - Sputum culture and strep / legionella urine antigens pending - Elevated lactic acid has normalized - will c/w Cefepime and Vancomycin (Day #2) - c/w IV fluid hydration 2. Dyspnea - likely 2/2 #1, possibly 2/2 COPD exacerbation - improving - c/w solumedrol 40mg IV q12, advair and duoneb 3. Tachycardia - likely 2/2 #1 - baseline HR of 100-110s 4. DLP - c/w simvastatin 5. Hx of Migraine headaches 6. Hx of kidney stones 7. Gi prophylaxis - c/w ranitidine 8. DVT prophylaxis - c/w heparin VS,Fishbone, I+O VS, Fishbone, I+O Laboratory Tests 04/24/16 15:45 Calcium Level 8.7 04/25/16 05:19 Calcium Level 8.6, Red Blood Count 4.36, Mean Corpuscular Volume 98.5 H, Mean Corpuscular Hemoglobin 31.9, Mean Corpuscular Hemoglobin Concent 32.4, Red Cell Distribution Width 14.1, Neutrophils (%) (Auto) 77.3 H, Lymphocytes (%) (Auto) 12.3 L, Monocytes (%) (Auto) 6.2 H, Eosinophils (%) (Auto) 0.4, Basophils (%) ( Auto) 2.0 H, Neutrophils # (Auto) 9.6 H, Lymphocytes # (Auto) 1.8, Monocytes # ( Auto) 0.8, Eosinophils # (Auto) 0.0, Basophils # (Auto) 0.2 Vital Signs Date Time Temp Pulse Resp B/P Pulse Ox O2 Delivery O2 Flow Rate FiO2 04/25/16 12:00 Room Air 04/25/16 08:00 96.6 117 20 124/81 91 04/24/16 12:48 2.0 I&O- Last 24 Hours up to 6 AM 04/25/16 05:59 Intake Total 7260 ml Output Total 5525 ml Balance 1735 ml FEDERICO HARDING MD Apr 25, 2016 13:25
[2016-04-25] MEDS: NORTRIPTYLINE 25 MG CAP PO SCH (21:17)
[2016-04-25] MEDS: ODEFSEY PO SCH (21:18)
[2016-04-25] MEDS ORDERED: VANCOMYCIN HCL 1,000 MG, VIAL MATE ADAPTER 1 EACH in D5W 250 ML IV ONE (22:00)
--- NOTE | 2016-04-25 22:38 | PHACANCOPD ---
PHARMACY VANCOMYCIN DOSING Pt Demographics Demographics Patient Age:56 , Weight:58.600 , Gender: male Adjusted Body Weight Events Past 24 Hours Events Past 24 Hours: NO: Change in CrCl, Dialysis, Diuretic Therapy, Elevation in WBC, Fever, Other, Pending Diagnostics, Pending Procedures Vancomycin Vancomycin indication: SEPSIS, HCAP Vancomycin Target Ranges: 15-20 mcg/ml Vancomycin Load Y/N: Yes Load Dose Date Time Vancomycin RE-Load Dose: 1500MG Date: 04/25/16 Time: 22:00 Vancomycin Dose Date: 04/25/16. CHANGE Current Vancomycin Dose: [1GM IV Q12H starting @ 06:00 08/07] Intermittent Dosing?: No Labs Labs Laboratory Tests Test 04/25/16 19:14 Vancomycin Level Trough 5.0UG/ML (10.0-20.0) Laboratory Tests 04/25/16 05:19 Red Blood Count 4.36, Mean Corpuscular Volume 98.5, Mean Corpuscular Hemoglobin 31.9, Mean Corpuscular Hemoglobin Concent 32.4, Red Cell Distribution Width 14.1 , Neutrophils (%) (Auto) 77.3, Lymphocytes (%) (Auto) 12.3, Monocytes (%) (Auto ) 6.2, Eosinophils (%) (Auto) 0.4, Basophils (%) (Auto) 2.0, Neutrophils # (Auto ) 9.6, Lymphocytes # (Auto) 1.8, Monocytes # (Auto) 0.8, Eosinophils # (Auto) 0.0, Basophils # (Auto) 0.2, Calcium Level 8.6 Micro Microbiology 04/23/16 Blood Culture - Preliminary, Resulted No growth after 24 hours . All specim... 04/23/16 Blood Culture - Preliminary, Resulted No Growth after 48 hours. All Specime... 04/25/16 Gram Stain, Received Pending 04/25/16 Sputum Culture, Received Pending Creatinine Clearance Date:05/09. Creatinine Clearance: [<70 ml/min]. Assessment and Plan Maintaining Current Dose?: No Reason for dose change: Trough too low Pharmacist Note Pharmacist Note Date: 04/25/16. Pharm.D. note: 56YO MALE, 65" in HEIGHT, 58.6KG in WEIGHT, SCR 0.83 mcg/ml, CRCL <70 ml/min. VANCO TR & CEFEPIME 2GM IV Q12H (9am,9pm). VANCO 750MG IV Q12H RESULTED IN A VANCO TR = 5.0 mcg/ml THIS EVENING. FOLLOWING HIS 21:00 CEFEPIME WE SHALL RE-LOAD HIM WITH 1.5GM VANCO OVER 2HRS @ 22:00 THEN INCREASE HIS DOSE TO 1GM VANCO IV Q12H STARTING AT 06:00 04/26/16 WE WILL DRAW A REPEAT VANCO TR WHEN HE IS AT STEADY STATE. ANGELIA, Pharm.D. [facility]APE [facility] Apr 25, 2016 22:38
[2016-04-25] MEDS ORDERED: VANCOMYCIN HCL 500 MG in D5W MINI-BAG PLUS 100 ML IV ONE (23:00)
[2016-04-26] MEDS: NS 1,000 ML IV SCH ×2 (00:31→05:43)
[2016-04-26 04:45] VITALS: BP 102/60
--- NOTE | 2016-04-26 05:01 | EDDOCDS ---
Physician Documentation [facility] Name: Timmy Castillo Age: 56 yrs Sex: Male : 1960 Arrival Date: 04/23/2016 Time: 21:01 Bed 10 Private MD: Abdoulaye Disposition: 04/24/16 01:26 Hospitalization ordered by Purnima Perea for Inpatient Admission. Preliminary diagnosis are Acute bronchitis, unspecified, Dyspnea, Acute interstitial pneumonitis. - Bed requested for 5 Sidhu. - Status is Inpatient Admission. af2 - Condition is Stable. - Problem is an ongoing problem. - Symptoms have improved. Historical: - Allergies: No known drug Allergies; - Home Meds: 1. prednisone 20 mg Oral tab 2 tabs once daily 5 days 2. Tessalon Perles 100 mg Oral cap 1 cap 3 times per day 3. Ventolin Rotahaler/Rotacaps 200 mcg Inhl CpDv 200 mcg daily 4. Breo Ellipta 200-25 mcg/dose inhalation dsdv 1 puff once daily 5. nortriptyline 50 mg Oral cap 1 cap once daily 6. simvastatin 40 mg Oral tab 1 tab once daily 7. Fioricet 50-325-40 mg Oral tab 1 tab as needed 8. Vitamin B-12 2,000 mcg Oral TbER daily 9. Vitamin D Oral 1000 unit daily 10. Zantac 150 mg Oral tab 1 tab once daily 11. odefsey 1 tab daily - PMHx: High Cholesterol; HIV; Migraine Headaches; - PSHx: hernia repair x2; left rotator cuff; Right Rotator Cuff; Orchiectomy- Right; eye biopsy; - Social history: Smoking status: Patient uses tobacco products, current every day smoker. No barriers to communication noted, The patient speaks fluent Armenian. - Family history: Not pertinent. - : The pt / caregiver states he / she is not on anticoagulants. Home medication list is obtained from the patient. - Exposure Risk Screening:: None identified. Vital Signs: 04/23 21:05 BP 123 / 78 (auto/); af2 21:07 Pulse 138 MON; Pulse Ox 99% ; af2 21:09 BP 123 / 78; Pulse 137; Resp 20; Temp 101.9(TE); Pulse Ox 99% ; Weight 58.97 kg / faby 130.01 lbs (R); Height 5 ft. 5 in. (165.10 cm) (R); Pain 0/10; 23:07 BP 124 / 66 (auto/); af2 23:07 Pulse 134 MON; Pulse Ox 97% ; af2 23:13 Pulse 138; bb3 23:37 Pulse 132 MON; Pulse Ox 90% ; af2 23:37 BP 115 / 59 (auto/); af2 04/24 00:07 BP 118 / 63 (auto/); af2 00:07 Pulse 134 MON; Pulse Ox 93% ; af2 00:27 Temp 98.3(O); af2 00:37 BP 124 / 71 (auto/); af2 00:59 Pulse 134 MON; Resp 28 S; Pulse Ox 95% on R/A; af2 01:07 BP 113 / 60 (auto/); af2 01:07 Pulse 130 MON; Resp 26 S; Pulse Ox 95% on R/A; af2 01:37 BP 121 / 73 (auto/); af2 01:37 Pulse 130 MON; Resp 26 S; Pulse Ox 94% on R/A; af2 02:07 BP 121 / 78 (auto/); af2 02:07 Pulse 130 MON; Pulse Ox 93% ; af2 02:37 Pulse 118 MON; Pulse Ox 96% ; af2 02:37 BP 106 / 58 (auto/); af2 03:07 BP 126 / 81 (auto/); af2 03:07 Pulse 124 MON; Resp 22 S; Temp 99.0(TE); Pulse Ox 96% ; af2 04/23 21:09 Body Mass Index 21.63 (58.97 kg, 165.10 cm) faby 04/23 21:09 RN aware of temp faby MDM: 21:17 ECG WITH READING ER PHYS+CARDIAG ordered. EDMS 21:27 Acetaminophen Tablet 975 mg PO once ordered. cs11 21:27 Call Respiratory ordered. cs11 21:28 -Arterial Blood Gas: room air Ordered. EDMS 21:28 -Blood Culture (Adults Only), peripheral from different site, or from device/port/PICC cs11 etc. if present ordered. 21:29 -Blood Culture Ordered. EDMS 21:29 Lactic Acid (Velásquez tube on ice) Ordered. EDMS 21:29 CBC with Diff Ordered. EDMS 21:29 MED Profile Ordered. EDMS 21:29 Liver Profile Ordered. EDMS 21:29 NS 0.9% 1000 ml IV at bolus once ordered. cs11 21:33 Call Respiratory complete. tmm1 21:34 Chest, 2 View (pa\E\lat) Ordered. EDMS 21:43 -Blood Culture (Adults Only), peripheral from different site, or from device/port/PICC tmm1 etc. if present complete. 21:44 BLOOD CULTURES Ordered. EDMS 22:00 -Arterial Blood Gas: room air Reviewed. cs11 22:00 CBC with Diff Reviewed. cs11 22:03 -Influenza A&B Rapid Antigen - Nose Ordered. EDMS 22:13 Lactic Acid (Velásquez tube on ice) Reviewed. cs11 22:13 MED Profile Reviewed. cs11 22:13 Liver Profile Reviewed. cs11 22:19 Albuterol-Ipratropium 1 neb Nebulizer every 20 minutes x3 ordered. cs11 22:19 Call Respiratory ordered. cs11 22:19 Dexamethasone 10 mg IV at bolus once ordered. cs11 22:21 Call Respiratory complete. tmm1 22:22 Doxycycline 100 mg IVPB once over 1 hrs; dilute in NS or D5W ordered. cs11 22:22 Trimethoprim-Sulfamethoxazole 160 mg-800 mg (DS) 1 tabs PO once ordered. cs11 22:27 Financial registration complete. [email or web address] 22:37 [facility] Payment Agreement was scanned into [email or web address] and attached to record. [email or web address] 23:42 -Influenza A&B Rapid Antigen - Nose Reviewed. cs11 01/02 00:10 Dextromethorphan-Guaifenesin Liquid 10 mg-100 mg/5 mL 10 ml PO once ordered. cs11 00:33 CT Chest Angio R/O PE Ordered. EDMS 01:27 BED REQUEST+ADM ordered. EDMS 03:30 LACTIC ACID LEVEL, LACTATE Ordered. EDMS 03:32 Admission / Observation Status ordered. EDMS 03:32 Admission / Observation Status ordered. EDMS 03:33 REGULAR DIET ordered. EDMS 06:04 T-Sheet-- Draft Copy was scanned into [email or web address] and attached to record. hs2 10:07 ECG/EKG was scanned into [email or web address] and attached to record. gb 10:07 Radiology Report was scanned into [email or web address] and attached to record. gb 14:23 PCR was scanned into [email or web address] and attached to record. gb Administered Medications: 04/23 21:40 Drug: NS 0.9% 1000 ml [sodium chloride 0.9 % intravenous solution] Route: IV; Rate: af2 bolus; Site: left antecubital; 21:43 Drug: Acetaminophen 975 mg [acetaminophen 325 mg tablet (3 tabs)] Route: PO; af2 22:29 Drug: Dexamethasone 10 mg [dexamethasone 4 mg/mL injection solution] Route: IV; Rate: af2 bolus; Site: left antecubital; 04/24 01:00 Follow up: IV Status: Completed infusion 04/23 22:34 Drug: Trimethoprim-Sulfamethoxazole 1 tabs [sulfamethoxazole 800 mg-trimethoprim 160 mg [facility] tablet (1 tabs)] Route: PO; 04/24 01:00 Follow up: Response: No Adverse Reaction 04/23 22:50 Drug: Albuterol-Ipratropium 1 neb [ipratropium-albuterol 0.5 mg-3 mg(2.5 mg base)/3 mL bb3 nebulization soln (1 neb)] Route: Nebulizer; 23:13 Follow up: Pulse 138 bpm; lung sounds with small change in aeration. lung sounds with bb3 scattered coarse crackles and rhonchi. Pt had slight tremors after second neb tx. Pulse rate increased only by 8-10 bpm. Third neb withheld and will re-assess patient within 30 min. 22:50 Drug: Albuterol-Ipratropium 1 neb [ipratropium-albuterol 0.5 mg-3 mg(2.5 mg base)/3 mL bb3 nebulization soln (1 neb)] Route: Nebulizer; 22:59 Drug: Doxycycline 100 mg Route: IVPB; Infused Over: 1 hrs; Site: left antecubital; [facility] 23:39 Drug: Albuterol-Ipratropium 1 neb [ipratropium-albuterol 0.5 mg-3 mg(2.5 mg base)/3 mL bb3 nebulization soln (1 neb)] Route: Nebulizer; 23:48 Follow up: lung sounds with crackles throughout RML RLL LLL bb3 04/24 00:59 Drug: Dextromethorphan-Guaifenesin 10 ml [dextromethorphan-guaifenesin 10 mg-100 mg/5 af2 mL oral liquid (10 mL)] Route: PO; Signatures: Dispatcher [employer] EDMS Coats HC, Ashley, RN RN daq Erica Perez, Reg Reg gb Scooter Weathers, DO cs11 McLear, Shelby, CABINET WORKER CABINET WORKER tmm1 Sruthi Sanchez,RN RN af2 Bonnie Saavedra, Reg Reg ks16 Kayleigh Jacome, Reg Reg hs2 Jose Combs bb3 Lissa Mcdowell RN [facility] The chart was reviewed and I authenticate all verbal orders and agree with the evaluation and treatment provided.Attachments: 04/23 22:37 [facility] Payment Agreement [email or web address] 04/24 06:04 T-Sheet-- Draft Copy hs2 10:07 ECG/EKG gb Chart Complete MTDD
--- NOTE | 2016-04-26 05:01 | EDDOCDS ---
Nurse's Notes [facility] Name: Timmy Castillo Age: 56 yrs Sex: Male : 1960 Arrival Date: 04/23/2016 Time: 21:01 Bed 10 Private MD: Abdoulaye Diagnosis: Acute bronchitis, unspecified;Dyspnea;Acute interstitial pneumonitis Presentation: 04/23 21:09 Presenting complaint: EMS states: pt has been treated for bronchitis for 5 weeks, af2 reports no improvement, increased difficulty breathing today. Adult Sepsis Screening: The patient does not have new or worsening altered mentation. Patient has a respiratory rate of greater than or equal to 22 (1 point). Systolic blood pressure is greater than 100. Patient has a qSOFA score of 1- Negative Sepsis Screen. Suicide/Homicide risk assessment- the patient denies having any suicidal and/or homicidal ideations and does not present with any other emotional, behavioral or mental health complaints. Status: Patient is not a servicer travel trailers or dependent. Transition of care: patient was not received from another setting of care. 21:09 Method Of Arrival: Ambulance af2 21:09 Acuity: BILL Level 3 af2 21:17 Care prior to arrival: See EMS report. Medications administered prior to arrival: af2 Nebulized Albuterol, Solumedrol, IV initiated. Saline lock initiated. Oxygen administered by EMS. 21:45 Acuity level changed due to complexity of care. af2 21:45 Acuity: BILL Level 2 af2 Triage Assessment: 21:14 General: Appears ill, Behavior is cooperative. Pain: Location: posterior aspect of af2 right shoulder Pain currently is 4 out of 10 on a pain scale. HIV screening NA for this visit Offered previously. Respiratory: Onset: The symptoms/episode began/occurred 5 weeks, Airway is patent Respiratory effort is even, Respiratory pattern is tachypnea Breath sounds are clear bilaterally. Reports shortness of breath cough that is. Derm: Skin is normal. Historical: - Allergies: No known drug Allergies; - Home Meds: 1. prednisone 20 mg Oral tab 2 tabs once daily 5 days 2. Tessalon Perles 100 mg Oral cap 1 cap 3 times per day 3. Ventolin Rotahaler/Rotacaps 200 mcg Inhl CpDv 200 mcg daily 4. Breo Ellipta 200-25 mcg/dose inhalation dsdv 1 puff once daily 5. nortriptyline 50 mg Oral cap 1 cap once daily 6. simvastatin 40 mg Oral tab 1 tab once daily 7. Fioricet 50-325-40 mg Oral tab 1 tab as needed 8. Vitamin B-12 2,000 mcg Oral TbER daily 9. Vitamin D Oral 1000 unit daily 10. Zantac 150 mg Oral tab 1 tab once daily 11. odefsey 1 tab daily - PMHx: High Cholesterol; HIV; Migraine Headaches; - PSHx: hernia repair x2; left rotator cuff; Right Rotator Cuff; Orchiectomy- Right; eye biopsy; - Social history: Smoking status: Patient uses tobacco products, current every day smoker. No barriers to communication noted, The patient speaks fluent [place]er. - Family history: Not pertinent. - : The pt / caregiver states he / she is not on anticoagulants. Home medication list is obtained from the patient. - Exposure Risk Screening:: None identified. Screenin:18 Screening information is obtained from the patient. Fall risk: No risks identified. af2 Assistance ADL's: requires no assistance with activities of daily living. Abuse/DV Screen: The patient / caregiver reports he/she is: not in a situation that causes fear, pain or injury. Nutritional screening: No deficits noted. Advance Directives: Advance directive information has been placed on a prior [facility] medical record, but the patient/ family does not know when. home support is adequate. Assessment: 21:41 General: Appears in no apparent distress, distressed, Behavior is cooperative. af2 Neurological: Level of Consciousness is awake, alert, Oriented to person, place, time. Cardiovascular: Heart tones S1 S2 present Rhythm is sinus tachycardia No ectopy. Respiratory: Airway is patent Respiratory effort is even, labored, Breath sounds are clear bilaterally. Derm: Skin is diaphoretic, Skin is pink, Skin temperature is hot. 22:16 General: Appears in no apparent distress, Behavior is cooperative, pt transported to CT af2 at this time. tolerated procedure well.. Neurological: Level of Consciousness is awake, alert, obeys commands, Oriented to person, place, time. Cardiovascular: Heart tones S1 S2 present Rhythm is sinus tachycardia No ectopy. Respiratory: Airway is patent Respiratory effort is even, labored, Reports shortness of breath cough that is. 23:05 General: Appears in no apparent distress, Behavior is cooperative, pt seated upright af2 position, states that is position of comfort. RT at bedside.. Neurological: Level of Consciousness is awake, alert. Respiratory: Airway is patent Respiratory effort is even, unlabored. Derm: Skin is normal. 23:54 General: Appears in no apparent distress, Behavior is cooperative. Neurological: Level af2 of Consciousness is awake, alert, obeys commands, Oriented to person, place, time. Cardiovascular: Rhythm is sinus tachycardia No ectopy. Respiratory: Airway is patent Respiratory effort is even, unlabored. Derm: Skin is normal. 04/24 01:01 General: Appears in no apparent distress, Behavior is cooperative, pt returned from CT af2 at this time, tolerated procedure well. piv patent, clear.. Neurological: Level of Consciousness is awake, alert, obeys commands. Cardiovascular: Rhythm is sinus tachycardia No ectopy. Respiratory: Airway is patent Respiratory effort is even, unlabored, Respiratory pattern is tachypnea. Derm: Skin is normal. 02:00 General: Appears in no apparent distress, Behavior is cooperative. Neurological: Level af2 of Consciousness is awake, alert, obeys commands, Oriented to person, place, time. Respiratory: Airway is patent Respiratory effort is even, unlabored. Derm: Skin is normal. 03:28 General: Appears in no apparent distress, Behavior is cooperative. Neurological: Level af2 of Consciousness is awake, alert, obeys commands, Oriented to person, place, time. Respiratory: Airway is patent Respiratory effort is even, unlabored. Derm: Skin is normal. Vital Signs: 04/23 21:05 BP 123 / 78 (auto/); af2 21:07 Pulse 138 MON; Pulse Ox 99% ; af2 21:09 BP 123 / 78; Pulse 137; Resp 20; Temp 101.9(TE); Pulse Ox 99% ; Weight 58.97 kg (R); faby Height 5 ft. 5 in. (165.10 cm) (R); Pain 0/10; 23:07 BP 124 / 66 (auto/); af2 23:07 Pulse 134 MON; Pulse Ox 97% ; af2 23:13 Pulse 138; bb3 23:37 Pulse 132 MON; Pulse Ox 90% ; af2 23:37 BP 115 / 59 (auto/); af2 04/24 00:07 BP 118 / 63 (auto/); af2 00:07 Pulse 134 MON; Pulse Ox 93% ; af2 00:27 Temp 98.3(O); af2 00:37 BP 124 / 71 (auto/); af2 00:59 Pulse 134 MON; Resp 28 S; Pulse Ox 95% on R/A; af2 01:07 BP 113 / 60 (auto/); af2 01:07 Pulse 130 MON; Resp 26 S; Pulse Ox 95% on R/A; af2 01:37 BP 121 / 73 (auto/); af2 01:37 Pulse 130 MON; Resp 26 S; Pulse Ox 94% on R/A; af2 02:07 BP 121 / 78 (auto/); af2 02:07 Pulse 130 MON; Pulse Ox 93% ; af2 02:37 Pulse 118 MON; Pulse Ox 96% ; af2 02:37 BP 106 / 58 (auto/); af2 03:07 BP 126 / 81 (auto/); af2 03:07 Pulse 124 MON; Resp 22 S; Temp 99.0(TE); Pulse Ox 96% ; af2 04/23 21:09 Body Mass Index 21.63 (58.97 kg, 165.10 cm) faby 04/23 21:09 RN aware of temp faby Vitals: 04/24 03:48 Log In Time N/A - ambulance arrival. af2 ED Course: 04/23 21:02 Patient visited by Shelby Daily PCA. tmm1 21:02 Abdoulaye is Private Physician. tmm1 21:02 Patient moved to Waiting tmm1 21:03 Sruthi Sanchez,RN is Primary Nurse. tmm1 21:03 Patient moved to 10 tmm1 21:07 Scooter Weathers DO is Attending Physician. cs11 21:07 Patient visited by Scooter Weathers DO. cs11 21:09 Pt greeted and oriented to ED. Patient advised of names of staff involved in care, faby location of call [place], wait times and NPO status. Accompanied by Significant Other, Patient has correct armband on for positive identification. Placed in gown. Bed in low position. Call light in reach. Side rails up X2. cardiac monitor technician on. Pulse ox on. NIBP on. 21:10 Patient visited by Savi Akhtar PCA. faby 21:11 Triage Initiated af2 21:18 The patient / caregiver is instructed regarding the plan of care and ED course. af2 21:18 Inserted saline lock: 18 gauge in left antecubital area The patient tolerated the af2 procedure well. 21:23 EKG done. (by ED staff). Reviewed by Scooter Weathers DO. faby 21:24 Patient visited by Savi Akhtar PCA. faby 21:41 Patient visited by Sruthi Sanchez RN. af2 21:45 -Arterial Blood Gas: room air Sent. bb3 21:46 Patient visited by Sruthi Sanchez RN. af2 22:06 Notified attending ED physician of Critical lab value. sls1 22:30 Patient visited by Sruthi Sanchez RN. af2 22:37 [facility] [place] Agreement was scanned into Printed Piece and attached to record. ks16 22:55 -Influenza A&B Rapid Antigen - Nose Sent. af2 23:05 Patient visited by Sruthi Sanchez RN. af2 23:07 Patient visited by Sruthi Sanchez RN. af2 23:54 Patient visited by Sruthi Sanchez RN. af2 01/02 00:25 Patient visited by Sruthi Sanchez RN. af2 00:25 Patient visited by Sruthi Sanchez RN. af2 00:28 Patient visited by Sruthi Sanchez RN. af2 01:02 Patient visited by Sruthi Sanchez RN. af2 01:23 Purnima Perea is Hospitalizing Provider. cs11 01:23 CT Chest Angio R/O PE Returned. EDMS 01:50 Patient visited by Sruthi Sanchez RN. af2 03:29 Patient visited by Sruthi Sanchez RN. af2 03:49 No procedures done that require assistance. af2 03:52 Patient visited by Sruthi Sanchez RN. af2 06:04 T-Sheet-- Draft Copy was scanned into Printed Piece and attached to record. hs2 10:07 ECG/EKG was scanned into Printed Piece and attached to record. gb 10:07 Radiology Report was scanned into Printed Piece and attached to record. gb 14:23 PCR was scanned into Printed Piece and attached to record. gb Administered Medications: 04/23 21:40 Drug: NS 0.9% 1000 ml [sodium chloride 0.9 % intravenous solution] Route: IV; Rate: af2 bolus; Site: left antecubital; 21:43 Drug: Acetaminophen 975 mg [acetaminophen 325 mg tablet (3 tabs)] Route: PO; af2 22:29 Drug: Dexamethasone 10 mg [dexamethasone 4 mg/mL injection solution] Route: IV; Rate: af2 bolus; Site: left antecubital; 04/24 01:00 Follow up: IV Status: Completed infusion af2 04/23 22:34 Drug: Trimethoprim-Sulfamethoxazole 1 tabs [sulfamethoxazole 800 mg-trimethoprim 160 mg [facility] tablet (1 tabs)] Route: PO; 04/24 01:00 Follow up: Response: No Adverse Reaction af2 04/23 22:50 Drug: Albuterol-Ipratropium 1 neb [ipratropium-albuterol 0.5 mg-3 mg(2.5 mg base)/3 mL bb3 nebulization soln (1 neb)] Route: Nebulizer; 23:13 Follow up: Pulse 138 bpm; lung sounds with small change in aeration. lung sounds with bb3 scattered coarse crackles and rhonchi. Pt had slight tremors after second neb tx. Pulse rate increased only by 8-10 bpm. Third neb withheld and will re-assess patient within 30 min. 22:50 Drug: Albuterol-Ipratropium 1 neb [ipratropium-albuterol 0.5 mg-3 mg(2.5 mg base)/3 mL bb3 nebulization soln (1 neb)] Route: Nebulizer; 22:59 Drug: Doxycycline 100 mg Route: IVPB; Infused Over: 1 hrs; Site: left antecubital; [facility] 23:39 Drug: Albuterol-Ipratropium 1 neb [ipratropium-albuterol 0.5 mg-3 mg(2.5 mg base)/3 mL bb3 nebulization soln (1 neb)] Route: Nebulizer; 23:48 Follow up: lung sounds with crackles throughout RML RLL LLL bb3 04/24 00:59 Drug: Dextromethorphan-Guaifenesin 10 ml [dextromethorphan-guaifenesin 10 mg-100 mg/5 af2 mL oral liquid (10 mL)] Route: PO; Intake: RT: 04/23 21:45 ABG's drawn from left radial artery pressure held for 5 minutes no bleeding noted bb3 pressure bandage applied specimen sent pt. tolerated well. Oxygen is room air. 22:49 Initial Med Neb Given as ordered Patient was instructed and evaluated on procedure bb3 Subsequent Med Neb Given as ordered Patient was reinforced on procedure. 22:50 Respiratory: Respiratory effort is even, Respiratory pattern is regular symmetrical, bb3 scattered rhonchi with bilateral LL rales. Pt has a strong hacking productive cough with clear thick sputum. 23:11 Respiratory: lung sounds with small change in aeration. lung sounds with scattered bb3 coarse crackles and rhonchi. Pt had slight tremors after second neb tx. Pulse rate increased only by 8-10 bpm. Third neb withheld and will re-assess patient within 30 min. 23:39 Subsequent Med Neb Given as ordered. bb3 23:47 Respiratory: strong congested productive cough Breath sounds with crackles in left bb3 posterior lower lobe, right posterior middle lobe and right posterior lower lobe. Order Results: Lab Order: -Arterial Blood Gas: room air; SPEC'M 04/23/16 21:36 Test: ABG pH (ARTERIAL); Value: 7.408; Range: 7.350-7.450; Units: UNITS; Status: F Test: ABG PARTIAL PRESSURE CO2; Value: 29.7; Range: 35.0-45.0; Abnormal: Below low normal; Units: mmHg; Status: F Test: ABG PARTIAL PRESSURE O2; Value: 83.7; Range: 75.0-100.0; Units: mmHg; Status: F Test: ABG TOTAL CO2; Value: 19.2; Range: 22.0-29.0; Abnormal: Below low normal; Units: MEQ/L; Status: F Test: ABG HCO3; Value: 18.3; Range: 22.0-26.0; Abnormal: Below low normal; Units: MEQ/L; Status: F Test: ABG BASE EXCESS; Value: -4.9; Range: -2.0-2.0; Abnormal: Below low normal; Status: F Test: ABG STANDARD HCO3; Value: 20.5; Range: 22.0-26.0; Abnormal: Below low normal; Units: MEQ/L; Status: F Test: ABG O2 SATURATION; Value: 97.1; Range: 95.0-99.0; Units: %; Status: F Test: ABG DEVICE; Value: NASAL ALISON; Status: F Lab Order: Lactic Acid (Velásquez tube on ice); SPEC'M 04/23/16 21:31 Test: LACTIC ACID LEVEL, LACTATE; Value: 4.1; Range: 0.4-2.0; Abnormal: Above upper panic limits; Units: MMOL/L; Status: F Lab Order: CBC with Diff; SPEC'M 04/23/16 21:31 Test: WHITE BLOOD COUNT; Value: 14.2; Range: 4.0-10.0; Abnormal: Above high normal; Units: K/mm3; Status: F Test: RED BLOOD COUNT; Value: 4.62; Range: 4.30-6.10; Units: M/mm3; Status: F Test: HEMOGLOBIN; Value: 15.3; Range: 14.0-18.0; Units: g/dl; Status: F Test: HEMATOCRIT; Value: 45.3; Range: 42.0-52.0; Units: %; Status: F Test: MEAN CORPUSCULAR VOLUME; Value: 98.0; Range: 80.0-96.0; Abnormal: Above high normal; Units: fl; Status: F Test: MEAN CORPUSCULAR HEMOGLOBIN; Value: 33.1; Range: 27.0-33.0; Abnormal: Above high normal; Units: pg; Status: F Test: MEAN CORPUSCULAR HGB CONC; Value: 33.7; Range: 32.0-36.5; Units: g/dl; Status: F Test: RED CELL DISTRIBUTION WIDTH; Value: 13.1; Range: 11.5-14.5; Units: %; Status: F Test: PLATELET COUNT, AUTOMATED; Value: 270; Range: 150-450; Units: k/mm3; Status: F Test: NEUTROPHILS %; Value: 75.8; Range: 36.0-66.0; Abnormal: Above high normal; Units: %; Status: F Test: LYMPH %; Value: 16.9; Range: 24.0-44.0; Abnormal: Below low normal; Units: %; Status: F Test: MONO %; Value: 5.4; Range: 0.0-5.0; Abnormal: Above high normal; Units: %; Status: F Test: EOS %; Value: 0.1; Range: 0.0-3.0; Units: %; Status: F Test: BASO %; Value: 0.2; Range: 0.0-1.0; Units: %; Status: F Test: LARGE UNSTAINED CELL %; Value: 1.6; Range: 0.0-4.0; Units: %; Status: F Test: NEUTROPHILS #; Value: 10.8; Range: 1.8-7.7; Abnormal: Above high normal; Units: K/mm3; Status: F Test: LYMPH #; Value: 2.4; Range: 1.5-4.5; Units: K/mm3; Status: F Test: MONO #; Value: 0.8; Range: 0.0-0.8; Units: K/mm3; Status: F Test: EOS #; Value: 0.0; Range: 0.0-0.50; Units: K/mm3; Status: F Test: BASO #; Value: 0.0; Range: 0.0-0.2; Units: K/mm3; Status: F Test: LARGE UNSTAINED CELL #; Value: 0.2; Range: 0.0-0.4; Units: K/mm3; Status: F Lab Order: MED Profile; SPEC'M 04/23/16 21:31 Test: GLUCOSE, FASTING; Value: 115; Range: 70-105; Abnormal: Above high normal; Units: MG/DL; Status: F Test: BLOOD UREA NITROGEN; Value: 15; Range: 7-18; Units: MG/DL; Status: F Test: CREATININE FOR GFR; Value: 1.11; Range: 0.70-1.30; Units: MG/DL; Status: F Test: GLOMERULAR FILTRATION RATE; Value: > 60.0; Range: >56; Status: F Test: SODIUM LEVEL; Value: 140; Range: 136-145; Units: MEQ/L; Status: F Test: POTASSIUM SERUM; Value: 3.9; Range: 3.5-5.1; Units: MEQ/L; Status: F Test: CHLORIDE LEVEL; Value: 104; Range: 98-107; Units: MEQ/L; Status: F Test: CARBON DIOXIDE LEVEL; Value: 24; Range: 21-32; Units: MEQ/L; Status: F Test: ANION GAP; Value: 12; Range: 8-16; Units: MEQ/L; Status: F Test: CALCIUM LEVEL; Value: 8.9; Range: 8.5-10.1; Units: MG/DL; Status: F Test Note: ; Units are mL/min/1.73 m2 Chronic Kidney Disease Staging per NKF: Stage I & II GFR >=60 Normal to Mildly Decreased Stage III GFR 30-59 Moderately Decreased Stage IV GFR 15-29 Severely Decreased Stage V GFR <15 Very Little GFR Left ESRD GFR <15 on HOT METAL MIXER OPERATOR HELPER Lab Order: Liver Profile; SPEC'M 04/23/16 21:31 Test: AST/SGOT; Value: 27; Range: 15-37; Units: U/L; Status: F Test: ALT/SGPT; Value: 34; Range: 12-78; Units: U/L; Status: F Test: ALKALINE PHOSPHATASE; Value: 74; Range: 45-117; Units: U/L; Status: F Test: BILIRUBIN,TOTAL; Value: 0.2; Range: 0.2-1.0; Units: MG/DL; Status: F Test: BILIRUBIN,DIRECT; Value: < 0.1; Range: 0.0-0.2; Units: MG/DL; Status: F Test: TOTAL PROTEIN; Value: 6.4; Range: 6.4-8.2; Units: GM/DL; Status: F Test: ALBUMIN; Value: 3.4; Range: 3.2-5.2; Units: GM/DL; Status: F Test: ALBUMIN/GLOBULIN RATIO; Value: 1.13; Range: 1.00-1.93; Status: F Lab Order: -Influenza A&B Rapid Antigen - Nose; SPEC'M 04/23/16 22:51 Test: INFLUENZA A RAPID SCR by ICA; Value: INFLUENZA A RESULTS NEGATIVE; Status: F Test: INFLUENZA A RAPID SCR by ICA; Value: Comments:; Status: F Test: INFLUENZA B RAPID SCR by ICA; Value: INFLUENZA B RESULTS NEGATIVE; Status: F Test Note: ; The Influenza test is a direct rapid immunoassay for the qualitative detection of Influenza viral antigen. Cell culture (Viral Culture) testing should be considered to confirm NEGATIVE results and to assist in detecting other viruses that can provide similar clinical symptoms. Please contact the lab within 24 hours ([phone]) if confirmatory testing is desired. Radiology Order: CT Chest Angio R/O PE Test: CT Chest Angio R/O PE REASON FOR EXAMINATION: Shortness of Breath; ; CLINICAL HISTORY: Dyspnea, exclude PE.; TECHNIQUE: Multiple incremental axial, coronal and oblique images are obtained from the thoracic inle; t to the upper abdomen. Intravenous contrast material was administered as per pulmonary embolism prot; ocol.; COMMENTS:; Bilateral atelectatic changes of the lower lobes with associated groundglass densities.; There is excellent opacification of pulmonary arterial system without evidence for pulmonary embolism; . Aorta is of normal caliber without evidence for dissection or aneurysm.; There is no evidence of pleural or parenchymal mass. There are no pleural effusions. There is no evid; ence of hilar or mediastinal lymphadenopathy. The heart and great vessels are within normal limits.; Images of the upper abdomen demonstrate no evidence of adrenal mass.; The bony structures are free of lytic or blastic lesions.; IMPRESSION:; No evidence for pulmonary embolism.; Bilateral basilar atelectatic pulmonary changes with associated groundglass densities. Atelectasis ve; rsus infection.; Thank you for your kind referral of this patient.; ; Outcome: 04/24 01:26 Decision to Hospitalize by Provider. cs11 03:48 Discharge Assessment: patient administered narcotics - no. The following High Risk af2 Discharge criteria are identified: None. Admitted to Med/Surg accompanied by tech, via stretcher, with chart. Condition: stable. CT Study completed. Property :Personal belongings accompany Pt. 04:00 Patient left the ED. af2 Signatures: Dispatcher [employer] EDMS Erica Perez, Reg Reg gb Jose Combs bb3 Savi Akhtar, END POLISHER END POLISHER Kaur Lowe, RN RN [id number] Lissa McdowellRN RN Scooter Jacobs, DO cs11 Shelby Daily, END POLISHER END POLISHER [id number] Sruthi Sanchez,CARL RN af2 Bonnie Saavedra, Reg Reg [id number] Kayleigh Jacome, Reg Reg hs2 Corrections: (The following items were deleted from the chart) 03:56 03:07 Pulse 124bpm; Monitor; Pulse Ox 96%; af2 af2 Chart Complete MTDD
--- NOTE | 2016-04-26 05:01 | EDDOCDS ---
Physician Documentation [facility] Name: Timmy Castillo Age: 56 yrs Sex: Male : 1960 Arrival Date: 04/23/2016 Time: 21:01 Bed 10 Private MD: Abdoulaye Disposition: 04/24/16 01:26 Hospitalization ordered by Purnima Perea for Inpatient Admission. Preliminary diagnosis are Acute bronchitis, unspecified, Dyspnea, Acute interstitial pneumonitis. - Bed requested for 5 Sidhu. - Status is Inpatient Admission. af2 - Condition is Stable. - Problem is an ongoing problem. - Symptoms have improved. Historical: - Allergies: No known drug Allergies; - Home Meds: 1. prednisone 20 mg Oral tab 2 tabs once daily 5 days 2. Tessalon Perles 100 mg Oral cap 1 cap 3 times per day 3. Ventolin Rotahaler/Rotacaps 200 mcg Inhl CpDv 200 mcg daily 4. Breo Ellipta 200-25 mcg/dose inhalation dsdv 1 puff once daily 5. nortriptyline 50 mg Oral cap 1 cap once daily 6. simvastatin 40 mg Oral tab 1 tab once daily 7. Fioricet 50-325-40 mg Oral tab 1 tab as needed 8. Vitamin B-12 2,000 mcg Oral TbER daily 9. Vitamin D Oral 1000 unit daily 10. Zantac 150 mg Oral tab 1 tab once daily 11. odefsey 1 tab daily - PMHx: High Cholesterol; HIV; Migraine Headaches; - PSHx: hernia repair x2; left rotator cuff; Right Rotator Cuff; Orchiectomy- Right; eye biopsy; - Social history: Smoking status: Patient uses tobacco products, current every day smoker. No barriers to communication noted, The patient speaks fluent Burmese. - Family history: Not pertinent. - : The pt / caregiver states he / she is not on anticoagulants. Home medication list is obtained from the patient. - Exposure Risk Screening:: None identified. Vital Signs: 04/23 21:05 BP 123 / 78 (auto/); af2 21:07 Pulse 138 MON; Pulse Ox 99% ; af2 21:09 BP 123 / 78; Pulse 137; Resp 20; Temp 101.9(TE); Pulse Ox 99% ; Weight 58.97 kg / faby 130.01 lbs (R); Height 5 ft. 5 in. (165.10 cm) (R); Pain 0/10; 23:07 BP 124 / 66 (auto/); af2 23:07 Pulse 134 MON; Pulse Ox 97% ; af2 23:13 Pulse 138; bb3 23:37 Pulse 132 MON; Pulse Ox 90% ; af2 23:37 BP 115 / 59 (auto/); af2 04/24 00:07 BP 118 / 63 (auto/); af2 00:07 Pulse 134 MON; Pulse Ox 93% ; af2 00:27 Temp 98.3(O); af2 00:37 BP 124 / 71 (auto/); af2 00:59 Pulse 134 MON; Resp 28 S; Pulse Ox 95% on R/A; af2 01:07 BP 113 / 60 (auto/); af2 01:07 Pulse 130 MON; Resp 26 S; Pulse Ox 95% on R/A; af2 01:37 BP 121 / 73 (auto/); af2 01:37 Pulse 130 MON; Resp 26 S; Pulse Ox 94% on R/A; af2 02:07 BP 121 / 78 (auto/); af2 02:07 Pulse 130 MON; Pulse Ox 93% ; af2 02:37 Pulse 118 MON; Pulse Ox 96% ; af2 02:37 BP 106 / 58 (auto/); af2 03:07 BP 126 / 81 (auto/); af2 03:07 Pulse 124 MON; Resp 22 S; Temp 99.0(TE); Pulse Ox 96% ; af2 04/23 21:09 Body Mass Index 21.63 (58.97 kg, 165.10 cm) faby 04/23 21:09 RN aware of temp faby MDM: 21:17 ECG WITH READING ER PHYS+CARDIAG ordered. EDMS 21:27 Acetaminophen Tablet 975 mg PO once ordered. cs11 21:27 Call Respiratory ordered. cs11 21:28 -Arterial Blood Gas: room air Ordered. EDMS 21:28 -Blood Culture (Adults Only), peripheral from different site, or from device/port/PICC cs11 etc. if present ordered. 21:29 -Blood Culture Ordered. EDMS 21:29 Lactic Acid (Velásquez tube on ice) Ordered. EDMS 21:29 CBC with Diff Ordered. EDMS 21:29 MED Profile Ordered. EDMS 21:29 Liver Profile Ordered. EDMS 21:29 NS 0.9% 1000 ml IV at bolus once ordered. cs11 21:33 Call Respiratory complete. tmm1 21:34 Chest, 2 View (pa\E\lat) Ordered. EDMS 21:43 -Blood Culture (Adults Only), peripheral from different site, or from device/port/PICC tmm1 etc. if present complete. 21:44 BLOOD CULTURES Ordered. EDMS 22:00 -Arterial Blood Gas: room air Reviewed. cs11 22:00 CBC with Diff Reviewed. cs11 22:03 -Influenza A&B Rapid Antigen - Nose Ordered. EDMS 22:13 Lactic Acid (Velásquez tube on ice) Reviewed. cs11 22:13 MED Profile Reviewed. cs11 22:13 Liver Profile Reviewed. cs11 22:19 Albuterol-Ipratropium 1 neb Nebulizer every 20 minutes x3 ordered. cs11 22:19 Call Respiratory ordered. cs11 22:19 Dexamethasone 10 mg IV at bolus once ordered. cs11 22:21 Call Respiratory complete. tmm1 22:22 Doxycycline 100 mg IVPB once over 1 hrs; dilute in NS or D5W ordered. cs11 22:22 Trimethoprim-Sulfamethoxazole 160 mg-800 mg (DS) 1 tabs PO once ordered. cs11 22:27 Financial registration complete. [email or web address] 22:37 [facility] Payment Agreement was scanned into [employer] and attached to record. ks16 23:42 -Influenza A&B Rapid Antigen - Nose Reviewed. cs11 01/02 00:10 Dextromethorphan-Guaifenesin Liquid 10 mg-100 mg/5 mL 10 ml PO once ordered. cs11 00:33 CT Chest Angio R/O PE Ordered. EDMS 01:27 BED REQUEST+ADM ordered. EDMS 03:30 LACTIC ACID LEVEL, LACTATE Ordered. EDMS 03:32 Admission / Observation Status ordered. EDMS 03:32 Admission / Observation Status ordered. EDMS 03:33 REGULAR DIET ordered. EDMS 06:04 T-Sheet-- Draft Copy was scanned into [employer] and attached to record. hs2 10:07 ECG/EKG was scanned into [employer] and attached to record. gb 10:07 Radiology Report was scanned into [employer] and attached to record. gb 14:23 PCR was scanned into [employer] and attached to record. gb Administered Medications: 04/23 21:40 Drug: NS 0.9% 1000 ml [sodium chloride 0.9 % intravenous solution] Route: IV; Rate: af2 bolus; Site: left antecubital; 21:43 Drug: Acetaminophen 975 mg [acetaminophen 325 mg tablet (3 tabs)] Route: PO; af2 22:29 Drug: Dexamethasone 10 mg [dexamethasone 4 mg/mL injection solution] Route: IV; Rate: af2 bolus; Site: left antecubital; 04/24 01:00 Follow up: IV Status: Completed infusion 04/23 22:34 Drug: Trimethoprim-Sulfamethoxazole 1 tabs [sulfamethoxazole 800 mg-trimethoprim 160 mg [facility] tablet (1 tabs)] Route: PO; 04/24 01:00 Follow up: Response: No Adverse Reaction 04/23 22:50 Drug: Albuterol-Ipratropium 1 neb [ipratropium-albuterol 0.5 mg-3 mg(2.5 mg base)/3 mL bb3 nebulization soln (1 neb)] Route: Nebulizer; 23:13 Follow up: Pulse 138 bpm; lung sounds with small change in aeration. lung sounds with bb3 scattered coarse crackles and rhonchi. Pt had slight tremors after second neb tx. Pulse rate increased only by 8-10 bpm. Third neb withheld and will re-assess patient within 30 min. 22:50 Drug: Albuterol-Ipratropium 1 neb [ipratropium-albuterol 0.5 mg-3 mg(2.5 mg base)/3 mL bb3 nebulization soln (1 neb)] Route: Nebulizer; 22:59 Drug: Doxycycline 100 mg Route: IVPB; Infused Over: 1 hrs; Site: left antecubital; [facility] 23:39 Drug: Albuterol-Ipratropium 1 neb [ipratropium-albuterol 0.5 mg-3 mg(2.5 mg base)/3 mL bb3 nebulization soln (1 neb)] Route: Nebulizer; 23:48 Follow up: lung sounds with crackles throughout RML RLL LLL bb3 04/24 00:59 Drug: Dextromethorphan-Guaifenesin 10 ml [dextromethorphan-guaifenesin 10 mg-100 mg/5 af2 mL oral liquid (10 mL)] Route: PO; Signatures: Dispatcher [employer] EDMS Coats HC, Ashley, RN RN daq Erica Perez, Reg Reg gb Scooter Weathers, DO cs11 McLear, Shelby, NUTRITIONAL ASSISTANT NUTRITIONAL ASSISTANT tmm1 Sruthi Sanchez,RN RN af2 Bonnie Saavedra, Reg Reg ks16 Kayleigh Jacome, Reg Reg hs2 Jose Combs bb3 Lissa Mcdowell RN [facility] The chart was reviewed and I authenticate all verbal orders and agree with the evaluation and treatment provided.Attachments: 04/23 22:37 [facility] Payment Agreement [email or web address] 04/24 06:04 T-Sheet-- Draft Copy hs2 10:07 ECG/EKG gb Chart Complete MTDD
[2016-04-26] MEDS: methylPREDNISolone INJ 40 MG/1 ML VIAL (J2920) IV SCH (05:42)
[2016-04-26] MEDS: HEPARIN SOD (PORCINE) 5000 UNITS/ML VIAL SC SCH (05:42)
[2016-04-26 05:52] LABS: BASO % 0.5 % (0.0-1.0); EOS % 0.5 % (0.0-3.0); LARGE UNSTAINED CELL # 0.2 K/mm3 (0.0-0.4); LARGE UNSTAINED CELL % 2.8 % (0.0-4.0); LYMPH # 1.4 K/mm3 (1.5-4.5); LYMPH % 18.9 % (24.0-44.0); MEAN CORPUSCULAR HEMOGLOBIN 32.6 pg (27.0-33.0); MEAN CORPUSCULAR HGB CONC 33.3 g/dl (32.0-36.5); MEAN CORPUSCULAR VOLUME 98.1 fl (80.0-96.0); MONO # 0.6 K/mm3 (0.0-0.8); MONO % 8.1 % (0.0-5.0); NEUTROPHILS % 69.3 % (36.0-66.0); PLATELET COUNT, AUTOMATED 212 k/mm3 (150-450); RED CELL DISTRIBUTION WIDTH 13.2 % (11.5-14.5); WHITE BLOOD COUNT 7.2 K/mm3 (4.0-10.0)
[2016-04-26] MEDS ORDERED: VANCOMYCIN HCL 1,000 MG, VIAL MATE ADAPTER 1 EACH in D5W 250 ML IV SCH (06:00)
[2016-04-26 06:01] LABS: ANION GAP 9 MEQ/L (8-16); BLOOD UREA NITROGEN 14 MG/DL (7-18); CALCIUM LEVEL 8.3 MG/DL (8.5-10.1); CARBON DIOXIDE LEVEL 27 MEQ/L (21-32); CHLORIDE LEVEL 105 MEQ/L (98-107); CREATININE FOR GFR 0.76 MG/DL (0.70-1.30); GLOMERULAR FILTRATION RATE > 60.0 (>56); GLUCOSE, FASTING 125 MG/DL (70-105); POTASSIUM SERUM 3.9 MEQ/L (3.5-5.1); SODIUM LEVEL 141 MEQ/L (136-145)
[2016-04-26 07:30] VITALS: BP 127/87
[2016-04-26] MEDS: ADVAIR DISKUS 500/50 INH PWD INH SCH (08:28)
[2016-04-26] MEDS: CEFEPIME HCL 2 GM in D5W MINI-BAG PLUS 50 ML IV SCH (08:45)
[2016-04-26] MEDS: raNITIdine SYRUP 150 MG/10 ML UDC PO SCH (08:46)
[2016-04-26] MEDS: NICOTINE 14 MG/24 HR TRANSDERMAL TD SCH (08:46)
[2016-04-26] MEDS: SIMVASTATIN 40 MG TAB PO SCH (08:46)
[2016-04-26] MEDS ORDERED: LEVA750T PO (10:39)
[2016-04-26] MEDS ORDERED: PRED10TA FT (10:39)
--- NOTE | 2016-04-26 17:26 | DSES ---
DATE OF ADMISSION: 04/24/2016 DATE OF DISCHARGE: 04/26/2016 PRIMARY CARE PROVIDER: Dr. Yuri Stanford REFERRING PHYSICIAN: None. CONSULTING PHYSICIAN: None. CONDITION ON DISCHARGE: Stable. FINAL DIAGNOSIS: Healthcare-acquired pneumonia. PROCEDURES: None. HISTORY OF PRESENT ILLNESS: The patient is a 56-year-old male with a past medical history of HIV on highly active antiretroviral therapy. His last CD4 was done in January 2006. It was in the 600s. His viral load was undetectable. He presented to the emergency room with shortness of breath and productive cough. The patient received azithromycin pack and prednisone as an outpatient but failed to improve. The patient was initially admitted for a chronic obstructive pulmonary disease (COPD) exacerbation but was later found to have an elevated lactic acid, severely tachypneic, and tachycardic. He was found to have healthcare-acquired pneumonia. He was started on broad spectrum antibiotics and IV fluid hydration. HOSPITAL COURSE: 1. Sepsis secondary to healthcare-acquired pneumonia. He clinically has improvement in his breathing. CT angiogram done 04/24/2016 showed bilateral basilar atelectasis, pulmonary changes with associated ground glass densities, atelectasis versus infection. Influenza negative. Blood cultures has been positive today, one of two cultures. The first blood culture preliminary reading was gram-positive cocci in chains. Sputum cultures remain pending. Streptococcus and the general urine antigens are pending. Elevated lactic acid has been normalized. The patient is on cefepime and vancomycin for day number three. He is being discharged home with Levaquin starting tomorrow. He has been put on IV fluid hydration and it has been discontinued upon discharge. 2. Dyspnea, likely secondary to number one. Possibly secondary to chronic obstructive pulmonary disease (COPD) exacerbation. This has been improving. The patient was initially put on Solu-Medrol for COPD exacerbation suspicion. He has been also continued with Advair and DuoNeb. Upon discharge, he is being transitioned to prednisone by mouth with a tapering dose. 3. Tachycardia, likely secondary to number one. Baseline heart rate is reported to be in the 100s to 120s. Today, his heart rate has been normalized to the 90s. 4. Dyslipidemia. Continue with simvastatin. 5. History of migraine headaches. 6. History of kidney stones. 7. Gastrointestinal (GI) prophylaxis. Continue with ranitidine. 8. Deep vein thrombosis (DVT) prophylaxis. Continue with heparin. DISCHARGE MEDICATIONS: The patient will be discharged home with: - Fioricet 50/300/40 one capsule by mouth every six hours as needed for migraine - albuterol one puff inhaled every four hours as needed for shortness of breath - benzonatate 100 mg by mouth three times a day - vitamin D 1000 units by mouth daily - vitamin B12 2000 mcg by mouth daily - Odefsey 225/25 one tablet by mouth every evening - Breo Ellipta one puff inhaled daily - nortriptyline 50 mg by mouth every evening - ranitidine two tablets by mouth daily - simvastatin 40 mg by mouth daily NEW MEDICATIONS: Include: - Levaquin 750 mg by mouth daily for the next seven days - prednisone 10 mg tablets to be taken as directed on a tapering basis DISCHARGE INSTRUCTIONS: The patient was advised to followup with his primary care provider. He has been advised to call and confirm a scheduled appointment. He has been advised to remain compliant with treatment plan and medications and return to the emergency room if he experiences any problems. TIME SPENT ON DISCHARGE: 35 minutes.
[2016-04-28 00:06] LABS: ORGANISM ID Not indicated. (.); SPECIMEN SOURCE Urine (.)
== END 2016-04-26 12:22 | disposition home or self-care (01) | DRG 892 ==
LOC: M ED 21:01 → M ED INP 04-24 03:16 → M MS5PR 04-24 04:05 → M PCU 04-24 08:03
PROVIDERS: ATTEND Internal Medicine
DX: B20 Human immunodeficiency virus [HIV] disease (principal); A41.9 Sepsis, unspecified organism; J18.9 Pneumonia, unspecified organism; J44.1 Chronic obstructive pulmonary disease with (acute) exacerbation; E78.5 Hyperlipidemia, unspecified; F17.200 Nicotine dependence, unspecified, uncomplicated; G43.909 Migraine, unspecified, not intractable, without status migrainosus; Z79.899 Other long term (current) drug therapy; Z87.01 Personal history of pneumonia (recurrent)

== ENCOUNTER → 2016-05-03 | Outpatient (CLI) | payer BC ==
[~2016-05-03] MED LIST: ALBU17IN INH; BREO1INH3 INH; FIOR1CAP PO; FIORCAP3 PO; LEVA750T PO; NORT50CA PO; ODEF1TAB PO; PRED10TA FT; PRED20TA PO; SIMV40TA2 PO; TESS100C PO; VITA10002 PO; VITA100066 PO; ZANT1TAB PO
--- NOTE | 2016-05-03 13:15 | REP ---
Clinical: Acute cough . Comparison: 04/23/2016 . Technique: PA and lateral. Findings: The mediastinum and cardiac silhouette are normal. The lung mcneill are clear and without acute consolidation, effusion, or pneumothorax. The skeletal structures are intact and normal. Impression: 1. No acute cardiopulmonary process. Signed by Tyrell Galindo MD 05/03/2016 01:08 P
== END | disposition home or self-care (01) ==
LOC: M RAD 12:44
PROVIDERS: ATTEND Nurse Practitioner Family
DX: R05 Cough (principal)

== ENCOUNTER → 2016-08-24 | Outpatient (CLI) | payer BC ==
--- NOTE | 2016-08-25 06:51 | REP ---
CT CHEST WITHOUT CONTRAST: 08/24/2016. Comparison: chest x-ray 05/03/2016, CT angiogram 04/24/2016. Clinical history: Persistent cough. Findings: Noncontrast CT with coronal and sagittal reconstructions provided. There is dependent atelectatic change posteriorly in the mid and lower lung zones. There is some mild cylindrical bronchiectatic change in both lower lung zones and to a lesser extent in the upper lobes. There is no pleural effusion, pleural-based mass, calcified pleural plaques or acute infiltrate. No definite nodules with or without calcification. There is some minor subsegmental or dependent atelectasis adjacent to the major fissures in the upper lung zone, right greater than left. There is no pneumothorax or pneumomediastinum. Heart not enlarged. There is no pericardial thickening or effusion. The aorta is without aneurysm. A few calcifications at the posterior arch as well as in the coronary arteries seen. No pathologic sized mediastinal or hilar adenopathy and no axillary or supraclavicular mass. Bone windows show lumbar spine with small marginal osteophytes without compression deformity of the sternum, manubrium, medial clavicles, humeral heads, scapulae and visualized ribs are intact. Upper abdomen shows liver and spleen without acute finding. There are multiple calcifications in bilateral pyramids, these are all small. Impression: 1. The lungs well inflated with some dependent atelectatic changes posteriorly mid and lower lung zone adjacent to the major fissures in the upper lung zone, left greater than right. 2. No effusion, pneumothorax, pleural based mass or pleural calcification. 3. No nodule or mass but there is bilateral cylindrical bronchiectasis. No other finding in the chest. 4. Nephrolithiasis with multiple stones in pyramids, one in a collecting system lower pole interpolar junction on the left. No hydronephrosis. Signed by Fredi Walter MD 08/25/2016 04:42 P
== END ==
LOC: M RAD 18:11
PROVIDERS: ATTEND Nurse Practitioner Family
DX: R05 Cough (principal); J98.4 Other disorders of lung; N20.0 Calculus of kidney

== ENCOUNTER 2016-09-29 09:48 | Emergency (ER) | payer BC ==
[~2016-09-29] VITALS: Ht 162.6 cm; Wt 59.4 kg
--- NOTE | 2016-09-29 11:43 | REP ---
CHEST X-RAY: Two views. HISTORY: Productive cough. Comparison chest x-ray May 03, 2016. FINDINGS: Heart size is borderline with cardiothoracic ratio today measuring 14.8 cm over 30.3 cm. Pulmonary vasculature is not increased. Pleural angles are sharp. No bony abnormality is seen. IMPRESSION: Borderline heart size otherwise no acute disease. Signed by Gerson Cotto MD 09/29/2016 01:19 P
[2016-09-29] MEDS ORDERED: PRED20TA PO (12:15)
[2016-09-29] MEDS ORDERED: MUCI600T34 PO (12:15)
[2016-09-29 12:17] VITALS: BP 133/91
== END 2016-09-29 12:23 | disposition home or self-care (01) ==
LOC: M ED 11:25
DX: R05 Cough (principal); Z87.891 Personal history of nicotine dependence; Z79.51 Long term (current) use of inhaled steroids; Z79.899 Other long term (current) drug therapy; Z88.8 Allergy status to other drugs, medicaments and biological substances

== ENCOUNTER 2017-01-25 18:59 | Emergency (ER) | payer BC ==
[~2017-01-25] VITALS: Ht 154.9 cm; Wt 59.1 kg
[~2017-01-25 18:59] MED LIST changes: -LEVA750T PO; +LEVA750T7 PO; +MUCI600T37 PO; -PRED10TA FT; +PRED10TA2 FT
[2017-01-25] MEDS ORDERED: IBUP80TA PO (19:13)
[2017-01-25] MEDS ORDERED: NS 1,000 ML IV ONE (22:15)
[2017-01-25 22:24] LABS: CALCIUM OXALATE CRYSTALS MODERATE
--- NOTE | 2017-01-25 22:30 | REPUSA ---
CT of the abdomen and pelvis without contrast Clinical statement: Pain. Technique: Multiple axial CT images were obtained from the base of the lungs to the floor of the pelv is utilizing 5 mm axial slices without administration of contrast. Coronal and sagittal reconstructio ns were also obtained. Comparison: 08/11/2011. Findings: Chest: The visualized lung bases are clear. Abdomen: The kidneys are normal in size bilaterally. There is diffuse bilateral nonobstructing nephro lithiasis. The largest stone in the left kidney measuring up to 7 mm. There is no evidence of hydrone phrosis. Multiple simple cysts are seen in the right kidney. The liver, spleen, pancreas, gallbladder and adrenal glands are unremarkable. The aorta demonstrates normal caliber and contour. There is no abdominal lymphadenopathy or ascites. Pelvis: Moderate amount of stool fills the colon. The appendix is normal. The bowel is otherwise unre markable, with no obstructive or inflammatory changes. The urinary bladder is within normal limits. T here is no pelvic lymphadenopathy or ascites. The other pelvic structures appear unremarkable. Bones: There are no suspicious osseous abnormalities seen. Impression: 1. Bilateral nonobstructing nephrolithiasis. 2. Moderate constipation. No obstructive or inflammatory bowel changes.
[2017-01-25 22:49] LABS: BASO % 0.2 % (0.0-1.0); EOS # 0.2 10^3/uL (0.0-0.50); IMMATURE GRANULOCYTE % 0.2 % (0-0); LYMPH # 2.2 10^3/uL (1.5-4.5); LYMPH % 22.9 % (24.0-44.0); MEAN CORPUSCULAR HGB CONC 33.7 g/dl (32.0-36.5); MEAN CORPUSCULAR VOLUME 97.7 fl (80.0-96.0); MONO # 0.9 10^3/uL (0.0-0.8); MONO % 9.7 % (0.0-5.0); NEUTROPHILS # 6.1 10^3/uL (1.8-7.7); PLATELET COUNT, AUTOMATED 221 10^3/uL (150-450); RED CELL DISTRIBUTION WIDTH 13.3 % (11.5-14.5); WHITE BLOOD COUNT 9.4 10^3/uL (4.0-10.0)
[2017-01-25 22:50] LABS: ADD MORPHOLOGY? NO
[2017-01-25 23:30] LABS: ALBUMIN 3.8 GM/DL (3.2-5.2); ALBUMIN/GLOBULIN RATIO 1.31 (1.00-1.93); ALKALINE PHOSPHATASE 60 U/L (45-117); ALT/SGPT 24 U/L (12-78); ANION GAP 8 MEQ/L (8-16); AST/SGOT 11 U/L (15-37); BILIRUBIN,DIRECT < 0.1 MG/DL (0.0-0.2); BILIRUBIN,TOTAL 0.3 MG/DL (0.2-1.0); BLOOD UREA NITROGEN 21 MG/DL (7-18); CALCIUM LEVEL 9.2 MG/DL (8.5-10.1); CARBON DIOXIDE LEVEL 26 MEQ/L (21-32); CHLORIDE LEVEL 106 MEQ/L (98-107); CREATININE FOR GFR 1.08 MG/DL (0.70-1.30); GLOMERULAR FILTRATION RATE > 60.0 (>56); GLUCOSE, FASTING 82 MG/DL (70-105); POTASSIUM SERUM 4.1 MEQ/L (3.5-5.1); SODIUM LEVEL 140 MEQ/L (136-145); TOTAL PROTEIN 6.7 GM/DL (6.4-8.2)
[2017-01-25 23:39] VITALS: BP 127/89
== END 2017-01-25 23:43 | disposition home or self-care (01) ==
LOC: M ED 18:59
DX: K59.00 Constipation, unspecified (principal); Z21 Asymptomatic human immunodeficiency virus [HIV] infection status; J45.909 Unspecified asthma, uncomplicated; Z79.51 Long term (current) use of inhaled steroids; Z79.899 Other long term (current) drug therapy; Z88.8 Allergy status to other drugs, medicaments and biological substances; Z85.47 Personal history of malignant neoplasm of testis; Z87.442 Personal history of urinary calculi; Z98.890 Other specified postprocedural states; Z87.891 Personal history of nicotine dependence

== ENCOUNTER → 2017-02-01 | Outpatient (CLI) | payer BC ==
[~2017-02-01] MED LIST changes: +IBUP80TA PO
--- NOTE | 2017-02-02 06:29 | REP ---
Clinical: Chronic cough. Technique: Axial noncontrast images from the thoracic inlet to the upper abdomen during inspiration and expiration along with coronal and sagittal re-formations. Comparison: 08/24/2016, 04/24/2016. Findings: A subtle diffuse nodular interstitial pattern is suggested along with mild diffuse bronchiectasis. Expiratory sequencing demonstrates appropriate volume loss without evidence for air trapping. No significant consolidation, nodule or mass lesion identified. No significant fibrosis or scarring. No pleural effusion/reaction or pneumothorax. No definite adenopathy. Mediastinum demonstrates mild atherosclerotic changes to the thoracic aorta and coronary arteries without aortic aneurysm, cardiomegaly or pericardial effusion. Surrounding musculoskeletal structures are intact without focal osseous abnormality. Upper abdomen demonstrates 2 mm bilateral nonobstructing renal calculi along with normal bilateral adrenal glands. Impression: 1. Lung mcneill suggest a subtle nonspecific nodular interstitial pattern along with mild bronchiectasis. No associated fibrosis, scarring, consolidation, nodule or mass lesion. No adenopathy. 2. Expiratory sequence demonstrates appropriate volume loss without evidence for air trapping. Signed by Tyrell Galindo MD 02/02/2017 06:21 A
== END ==
LOC: M RAD 16:07
PROVIDERS: ATTEND Internal Medicine Pulmonary Disease
DX: J47.9 Bronchiectasis, uncomplicated (principal)

== ENCOUNTER → 2017-03-02 | Outpatient (CLI) | payer BC ==
[2017-03-07 00:07] LABS: BLASTOMYCES ANTIBODY LEVEL Negative (Neg:<1:1); CRYPTOCOCCUS ANTIGEN SER Negative (Negative); HISTOPLASMOSIS ANTIBODY Negative (Neg:<1:1); SJOGREN'S ANTI SS-A <0.2 AI (0.0-0.9); SJOGREN'S ANTI SS-B <0.2 AI (0.0-0.9)
== END ==
LOC: M LAB 17:06
PROVIDERS: ATTEND Internal Medicine Pulmonary Disease
DX: R91.8 Other nonspecific abnormal finding of lung field (principal)

== ENCOUNTER → 2017-04-05 | Outpatient (REF) | payer BC | LOC: M LAB REF 13:28 | PROVIDERS: ATTEND Internal Medicine Pulmonary Disease | DX: R05 Cough (principal) ==

== ENCOUNTER → 2017-06-09 | Outpatient (CLI) | payer BC ==
[2017-06-09 17:56] LABS: BASO % 0.4 % (0.0-1.0); EOS # 0.1 10^3/uL (0.0-0.50); EOS % 1.2 % (0.0-3.0); HEMATOCRIT 45.9 % (42.0-52.0); HEMOGLOBIN 15.3 g/dl (14.0-18.0); IMMATURE GRANULOCYTE % 0.6 % (0-3.0); LYMPH # 1.6 10^3/uL (1.5-4.5); LYMPH % 13.7 % (24.0-44.0); MEAN CORPUSCULAR HEMOGLOBIN 31.9 pg (27.0-33.0); MEAN CORPUSCULAR HGB CONC 33.3 g/dl (32.0-36.5); MEAN CORPUSCULAR VOLUME 95.8 fl (80.0-96.0); MONO # 1.1 10^3/uL (0.0-0.8); MONO % 9.7 % (0.0-5.0); NEUTROPHILS # 8.5 10^3/uL (1.8-7.7); NEUTROPHILS % 74.4 % (36.0-66.0); PLATELET COUNT, AUTOMATED 312 10^3/uL (150-450); RED BLOOD COUNT 4.79 10^6/uL (4.30-6.10); WHITE BLOOD COUNT 11.4 10^3/uL (4.0-10.0)
== END ==
LOC: M WUC 11:58
DX: R05 Cough (principal)
CPT/HCPCS: 85025

== ENCOUNTER 2017-06-12 19:51 | Inpatient (IN) | payer SELFPAY, BC ==
[2017-06-12] MEDS: ACETAMINOPHEN 325 MG TAB PO ×2 (20:13→20:15)
[2017-06-12] MEDS: NS 1,000 ML IV ×4 (20:15→22:15)
[2017-06-12 20:32] LABS: BASO % 0.4 % (0.0-1.0); EOS % 0.1 % (0.0-3.0); HEMATOCRIT 42.1 % (42.0-52.0); HEMOGLOBIN 14.2 g/dl (14.0-18.0); IMMATURE GRANULOCYTE % 1.3 % (0-3.0); LYMPH # 0.8 10^3/uL (1.5-4.5); LYMPH % 8.2 % (24.0-44.0); MEAN CORPUSCULAR HGB CONC 33.7 g/dl (32.0-36.5); MEAN CORPUSCULAR VOLUME 94.8 fl (80.0-96.0); MONO # 0.9 10^3/uL (0.0-0.8); MONO % 9.8 % (0.0-5.0); NEUTROPHILS # 7.7 10^3/uL (1.8-7.7); NEUTROPHILS % 80.2 % (36.0-66.0); PLATELET COUNT, AUTOMATED 298 10^3/uL (150-450); RED BLOOD COUNT 4.44 10^6/uL (4.30-6.10); WHITE BLOOD COUNT 9.6 10^3/uL (4.0-10.0)
[2017-06-12 20:52] LABS: ABG BASE EXCESS -0.4 (-2.0-2.0); ABG HCO3 22.5 MEQ/L (22.0-26.0); ABG O2 SATURATION 98.2 % (95.0-99.0); ABG PARTIAL PRESSURE CO2 32.2 mmHg (35.0-45.0); ABG PARTIAL PRESSURE O2 102.3 mmHg (75.0-100.0); ABG STANDARD HCO3 24.2 MEQ/L (22.0-26.0); ABG TOTAL CO2 23.5 MEQ/L (22.0-29.0); ABG pH (ARTERIAL) 7.463 UNITS (7.350-7.450); ANION GAP 12 MEQ/L (8-16); BLOOD UREA NITROGEN 12 MG/DL (7-18); CALCIUM LEVEL 10.2 MG/DL (8.5-10.1); CARBON DIOXIDE LEVEL 27 MEQ/L (21-32); CHLORIDE LEVEL 102 MEQ/L (98-107); CREATININE FOR GFR 1.19 MG/DL (0.70-1.30); GLOMERULAR FILTRATION RATE > 60.0 (>56); GLUCOSE, FASTING 92 MG/DL (70-100); POTASSIUM SERUM 4.6 MEQ/L (3.5-5.1); SODIUM LEVEL 141 MEQ/L (136-145)
[2017-06-12] MEDS: NORTRIPTYLINE 25 MG CAP PO (21:00)
[2017-06-12 21:05] LABS: LACTIC ACID SEPSIS PROTOCOL 4.3 MMOL/L (0.4-2.0)
[2017-06-12] MEDS: CEFUROXIME SODIUM 1.5 GM in D5W MINI-BAG PLUS 50 ML IV (21:15)
[2017-06-12 21:37] LABS: INFLUENZA A AMPLIFICATION NEGATIVE (NEGATIVE); INFLUENZA B AMPLIFICATION POSITIVE (NEGATIVE)
[2017-06-12] MEDS: OSELTAMIVIR PHOSPHATE 75 MG CAP (TAMIFLU) PO (22:16)
[2017-06-12] MEDS: MAALOX 30 ML SUSP *UDC PO (22:20)
[2017-06-12] MEDS: IPRATROPIUM 0.5MG/ALBUTEROL 2.5MG INH SOL UD 3ML (DUONEB)(J7620) NEB (22:30)
[2017-06-12] MEDS ORDERED: ISOVUE-370 76% 100ML VIAL (Q9967) As Ordered (23:54)
[2017-06-12] MEDS ORDERED: VANCOMYCIN HCL 750 MG, VIAL MATE ADAPTER 1 EACH in D5W 250 ML IV (23:55)
[2017-06-13 00:29] LABS: CPK CREATINE PHOSPHOKINASE 280 U/L (39-308); MB/CK RELATIVE INDEX 0.35 (< OR =4); TROPONIN I 0.04 NG/ML (< 0.10)
[2017-06-13] MEDS: FAMOTIDINE 20 MG TAB PO ×3 (00:32→20:29)
[2017-06-13] MEDS: ACETAMINOPHEN TAB 650MG DOSE (2X325MG) PO ×3 (00:33→21:49)
[2017-06-13] MEDS: VANCOMYCIN HCL 1,000 MG, VIAL MATE ADAPTER 1 EACH in D5W 250 ML IV ×2 (00:58→13:39)
[2017-06-13] MEDS: PIPERACILLIN/TAZOBACTAM SOD 3.375 GM in APPROPRIATE DILUENT 1 EA IV ×4 (02:00→20:28)
[2017-06-13 02:05] LABS: LACTIC ACID SEPSIS PROTOCOL 1.4 MMOL/L (0.4-2.0)
[2017-06-13 05:22] LABS: CK-MB VALUE MASS 1.4 NG/ML (0.0-3.6)
[2017-06-13 05:37] LABS: MB/CK RELATIVE INDEX 0.18 (< OR =4)
[2017-06-13 05:44] LABS: CPK CREATINE PHOSPHOKINASE 761 U/L (39-308)
[2017-06-13 05:45] LABS: TROPONIN I 0.08 NG/ML (< 0.10)
[2017-06-13] MEDS: NS 1,000 ML IV ×3 (06:15→11:37)
[2017-06-13] MEDS: LEVALBUTEROL 1.25 MG/0.5 ML CONCENTRATE NEB INH (06:55)
[2017-06-13 07:02] LABS: HEMATOCRIT 39.3 % (42.0-52.0); HEMOGLOBIN 13.1 g/dl (14.0-18.0); MEAN CORPUSCULAR HEMOGLOBIN 31.9 pg (27.0-33.0); MEAN CORPUSCULAR HGB CONC 33.3 g/dl (32.0-36.5); MEAN CORPUSCULAR VOLUME 95.6 fl (80.0-96.0); PLATELET COUNT, AUTOMATED 266 10^3/uL (150-450); RED BLOOD COUNT 4.11 10^6/uL (4.30-6.10); RED CELL DISTRIBUTION WIDTH 13.3 % (11.5-14.5); WHITE BLOOD COUNT 9.6 10^3/uL (4.0-10.0)
[2017-06-13 07:06] LABS: ANION GAP 9 MEQ/L (8-16); BLOOD UREA NITROGEN 10 MG/DL (7-18); CALCIUM LEVEL 8.4 MG/DL (8.5-10.1); CARBON DIOXIDE LEVEL 24 MEQ/L (21-32); CHLORIDE LEVEL 105 MEQ/L (98-107); CREATININE FOR GFR 1.11 MG/DL (0.70-1.30); GLOMERULAR FILTRATION RATE > 60.0 (>56); GLUCOSE, FASTING 91 MG/DL (70-100); MAGNESIUM LEVEL 2.1 MG/DL (1.8-2.4); POTASSIUM SERUM 4.8 MEQ/L (3.5-5.1); SODIUM LEVEL 138 MEQ/L (136-145)
[2017-06-13] MEDS: SODIUM CHLORIDE 0.9% 1000 ML IV (07:15)
[2017-06-13] MEDS: KETOROLAC 30 MG/ML VIAL (J1885) IV (09:17)
[2017-06-13] MEDS: METOCLOPRAMIDE INJ 10MG/2ML VIAL (J2765) IV (09:18)
[2017-06-13] MEDS: SIMVASTATIN 40 MG TAB PO (09:42)
[2017-06-13] MEDS: OSELTAMIVIR PHOSPHATE 75 MG CAP (TAMIFLU) PO ×2 (09:42→20:29)
[2017-06-13] MEDS: VITAMIN D 1,000 INTERNATIONAL UNITS TABLET PO (09:42)
[2017-06-13] MEDS: DEXTROMETHORPHAN 60MG/10ML SUSP 90ML BTL(DELSYM) PO ×2 (09:43→21:49)
[2017-06-13] MEDS: ENOXAPARIN 40 MG/0.4 ML SYRINGE (J1650) SC (09:43)
[2017-06-13] MEDS: CYANOCOBALAMIN 500 MCG TAB PO (09:43)
[2017-06-13 13:20] LABS: CPK CREATINE PHOSPHOKINASE 774 U/L (39-308); TROPONIN I 0.16 NG/ML (< 0.10)
[2017-06-13 13:21] LABS: CK-MB VALUE MASS 1.3 NG/ML (0.0-3.6); MB/CK RELATIVE INDEX 0.16 (< OR =4)
[2017-06-13] MEDS: NORTRIPTYLINE 25 MG CAP PO (20:28)
[2017-06-13] MEDS: ODEFSEY PO (22:48)
[2017-06-13] MEDS: IBUPROFEN 400 MG TAB PO (22:54)
[2017-06-14] MEDS: NS 1,000 ML IV (00:18)
[2017-06-14] MEDS: VANCOMYCIN HCL 1,000 MG, VIAL MATE ADAPTER 1 EACH in D5W 250 ML IV (00:19)
[2017-06-14] MEDS: PIPERACILLIN/TAZOBACTAM SOD 3.375 GM in APPROPRIATE DILUENT 1 EA IV (01:40)
[2017-06-14 05:56] LABS: HEMATOCRIT 36.1 % (42.0-52.0); MEAN CORPUSCULAR HEMOGLOBIN 31.7 pg (27.0-33.0); MEAN CORPUSCULAR HGB CONC 33.2 g/dl (32.0-36.5); MEAN CORPUSCULAR VOLUME 95.5 fl (80.0-96.0); PLATELET COUNT, AUTOMATED 211 10^3/uL (150-450); RED BLOOD COUNT 3.78 10^6/uL (4.30-6.10); RED CELL DISTRIBUTION WIDTH 13.1 % (11.5-14.5); WHITE BLOOD COUNT 6.4 10^3/uL (4.0-10.0)
[2017-06-14 06:03] LABS: ANION GAP 8 MEQ/L (8-16); BLOOD UREA NITROGEN 14 MG/DL (7-18); CALCIUM LEVEL 7.9 MG/DL (8.5-10.1); CARBON DIOXIDE LEVEL 25 MEQ/L (21-32); CHLORIDE LEVEL 108 MEQ/L (98-107); CREATININE FOR GFR 0.97 MG/DL (0.70-1.30); GLOMERULAR FILTRATION RATE > 60.0 (>56); GLUCOSE, FASTING 74 MG/DL (70-100); POTASSIUM SERUM 3.8 MEQ/L (3.5-5.1); SODIUM LEVEL 141 MEQ/L (136-145)
[2017-06-14] MEDS: methylPREDNISolone INJ 125 MG/2 ML VIAL (J2930) IV ×3 (06:34→22:38)
[2017-06-14] MEDS: LEVALBUTEROL 1.25 MG/0.5 ML CONCENTRATE NEB INH ×5 (08:00→23:36)
[2017-06-14] MEDS: OSELTAMIVIR PHOSPHATE 75 MG CAP (TAMIFLU) PO ×2 (08:14→20:53)
[2017-06-14] MEDS: SIMVASTATIN 40 MG TAB PO (08:14)
[2017-06-14] MEDS: VITAMIN D 1,000 INTERNATIONAL UNITS TABLET PO (08:14)
[2017-06-14] MEDS: FAMOTIDINE 20 MG TAB PO ×2 (08:14→20:53)
[2017-06-14] MEDS: ENOXAPARIN 40 MG/0.4 ML SYRINGE (J1650) SC (08:15)
[2017-06-14] MEDS: CYANOCOBALAMIN 500 MCG TAB PO (08:15)
[2017-06-14] MEDS: ADVAIR HFA 230/21MCG INHALER INH (09:00)
[2017-06-14] MEDS: ODEFSEY PO (20:54)
[2017-06-14] MEDS: NORTRIPTYLINE 25 MG CAP PO (20:54)
[2017-06-15] MEDS: LEVALBUTEROL 1.25 MG/0.5 ML CONCENTRATE NEB INH ×6 (03:45→23:03)
[2017-06-15] MEDS: methylPREDNISolone INJ 125 MG/2 ML VIAL (J2930) IV ×3 (05:48→21:16)
[2017-06-15 06:53] LABS: HEMATOCRIT 36.6 % (42.0-52.0); HEMOGLOBIN 12.4 g/dl (14.0-18.0); MEAN CORPUSCULAR HEMOGLOBIN 31.3 pg (27.0-33.0); MEAN CORPUSCULAR HGB CONC 33.9 g/dl (32.0-36.5); MEAN CORPUSCULAR VOLUME 92.4 fl (80.0-96.0); PLATELET COUNT, AUTOMATED 238 10^3/uL (150-450); RED BLOOD COUNT 3.96 10^6/uL (4.30-6.10); RED CELL DISTRIBUTION WIDTH 12.5 % (11.5-14.5); WHITE BLOOD COUNT 5.4 10^3/uL (4.0-10.0)
[2017-06-15 07:08] LABS: NT-PRO BNP 1469 PG/ML (<125)
[2017-06-15 07:17] LABS: ANION GAP 11 MEQ/L (8-16); BLOOD UREA NITROGEN 12 MG/DL (7-18); CALCIUM LEVEL 8.5 MG/DL (8.5-10.1); CARBON DIOXIDE LEVEL 25 MEQ/L (21-32); CHLORIDE LEVEL 104 MEQ/L (98-107); CREATININE FOR GFR 0.82 MG/DL (0.70-1.30); GLOMERULAR FILTRATION RATE > 60.0 (>56); GLUCOSE, FASTING 176 MG/DL (70-100); MAGNESIUM LEVEL 2.1 MG/DL (1.8-2.4); POTASSIUM SERUM 3.6 MEQ/L (3.5-5.1); SODIUM LEVEL 140 MEQ/L (136-145)
[2017-06-15 07:22] LABS: CK-MB VALUE MASS 2.8 NG/ML (0.0-3.6); CPK CREATINE PHOSPHOKINASE 561 U/L (39-308); MB/CK RELATIVE INDEX 0.49 (< OR =4); TROPONIN I 0.03 NG/ML (< 0.10)
[2017-06-15] MEDS: VITAMIN D 1,000 INTERNATIONAL UNITS TABLET PO (09:20)
[2017-06-15] MEDS: FAMOTIDINE 20 MG TAB PO ×2 (09:20→21:17)
[2017-06-15] MEDS: CYANOCOBALAMIN 500 MCG TAB PO (09:20)
[2017-06-15] MEDS: OSELTAMIVIR PHOSPHATE 75 MG CAP (TAMIFLU) PO ×2 (09:20→21:17)
[2017-06-15] MEDS: SIMVASTATIN 40 MG TAB PO (09:20)
[2017-06-15] MEDS: ENOXAPARIN 40 MG/0.4 ML SYRINGE (J1650) SC (09:21)
[2017-06-15] MEDS: IBUPROFEN 400 MG TAB PO (10:22)
[2017-06-15] MEDS: ASPIRIN 325 MG TAB PO (11:22)
[2017-06-15] MEDS: DEXTROMETHORPHAN 60MG/10ML SUSP 90ML BTL(DELSYM) PO (11:22)
[2017-06-15] MEDS: ADVAIR HFA 230/21MCG INHALER INH ×2 (11:45→20:28)
[2017-06-15] MEDS: ODEFSEY PO (21:00)
[2017-06-15] MEDS: FUROSEMIDE 20 MG/2 ML VIAL (J1940) IV (21:16)
[2017-06-15] MEDS: NORTRIPTYLINE 25 MG CAP PO (21:17)
[2017-06-16 00:06] LABS: BODY FLUID CULTURE Not Indicated (.); LEGIONELLA ANTIGEN URINE Negative (Negative); ORGANISM ID Not indicated. (.); SPECIMEN SOURCE Urine (.); URINE STREP PNEUMONIAE ANTIGEN Negative (Negative)
[2017-06-16] MEDS: DEXTROMETHORPHAN 60MG/10ML SUSP 90ML BTL(DELSYM) PO ×2 (02:59→23:18)
[2017-06-16] MEDS: LEVALBUTEROL 1.25 MG/0.5 ML CONCENTRATE NEB INH ×6 (04:14→20:56)
[2017-06-16] MEDS: methylPREDNISolone INJ 125 MG/2 ML VIAL (J2930) IV (05:46)
[2017-06-16 06:26] LABS: HEMATOCRIT 36.5 % (42.0-52.0); HEMOGLOBIN 12.4 g/dl (14.0-18.0); MEAN CORPUSCULAR HEMOGLOBIN 31.3 pg (27.0-33.0); MEAN CORPUSCULAR VOLUME 92.2 fl (80.0-96.0); PLATELET COUNT, AUTOMATED 260 10^3/uL (150-450); RED BLOOD COUNT 3.96 10^6/uL (4.30-6.10); RED CELL DISTRIBUTION WIDTH 12.8 % (11.5-14.5)
[2017-06-16 06:47] LABS: ANION GAP 9 MEQ/L (8-16); BLOOD UREA NITROGEN 12 MG/DL (7-18); CARBON DIOXIDE LEVEL 29 MEQ/L (21-32); CHLORIDE LEVEL 101 MEQ/L (98-107); CREATININE FOR GFR 0.81 MG/DL (0.70-1.30); GLOMERULAR FILTRATION RATE > 60.0 (>56); GLUCOSE, FASTING 143 MG/DL (70-100); POTASSIUM SERUM 3.1 MEQ/L (3.5-5.1); SODIUM LEVEL 139 MEQ/L (136-145)
[2017-06-16] MEDS: ADVAIR HFA 230/21MCG INHALER INH (08:31)
[2017-06-16] MEDS: ASPIRIN 325 MG TAB PO (09:10)
[2017-06-16] MEDS: CYANOCOBALAMIN 500 MCG TAB PO (09:11)
[2017-06-16] MEDS: FAMOTIDINE 20 MG TAB PO ×2 (09:11→20:42)
[2017-06-16] MEDS: VITAMIN D 1,000 INTERNATIONAL UNITS TABLET PO (09:11)
[2017-06-16] MEDS: SIMVASTATIN 40 MG TAB PO (09:11)
[2017-06-16] MEDS: OSELTAMIVIR PHOSPHATE 75 MG CAP (TAMIFLU) PO ×2 (09:12→20:42)
[2017-06-16] MEDS: ENOXAPARIN 40 MG/0.4 ML SYRINGE (J1650) SC (09:12)
[2017-06-16] MEDS: POTASSIUM CHLORIDE 10 MEQ SR TABLET PO (09:13)
[2017-06-16] MEDS: FUROSEMIDE 20 MG/2 ML VIAL (J1940) IV (09:14)
[2017-06-16] MEDS: guaiFENesin/CODEINE SYRUP 5 ML UDC PO (13:22)
[2017-06-16] MEDS: predniSONE 20 MG TAB PO (20:42)
[2017-06-16] MEDS: MAALOX 30 ML SUSP *UDC PO (20:42)
[2017-06-16] MEDS: NORTRIPTYLINE 25 MG CAP PO (20:42)
[2017-06-16] MEDS: ODEFSEY PO (20:43)
[2017-06-17] MEDS: LEVALBUTEROL 1.25 MG/0.5 ML CONCENTRATE NEB INH ×7 (00:04→23:26)
[2017-06-17] MEDS ORDERED: ACETAMINOPHEN TAB 650MG DOSE (2X325MG) As Ordered (05:49)
[2017-06-17] MEDS: ACETAMINOPHEN TAB 650MG DOSE (2X325MG) PO (05:57)
[2017-06-17 06:00] LABS: HEMATOCRIT 40.6 % (42.0-52.0); HEMOGLOBIN 13.4 g/dl (14.0-18.0); MEAN CORPUSCULAR HEMOGLOBIN 31.3 pg (27.0-33.0); MEAN CORPUSCULAR VOLUME 94.9 fl (80.0-96.0); PLATELET COUNT, AUTOMATED 296 10^3/uL (150-450); RED BLOOD COUNT 4.28 10^6/uL (4.30-6.10); RED CELL DISTRIBUTION WIDTH 13.1 % (11.5-14.5); WHITE BLOOD COUNT 16.4 10^3/uL (4.0-10.0)
[2017-06-17 06:02] LABS: ANION GAP 17 MEQ/L (8-16); BLOOD UREA NITROGEN 20 MG/DL (7-18); CARBON DIOXIDE LEVEL 21 MEQ/L (21-32); CHLORIDE LEVEL 104 MEQ/L (98-107); CREATININE FOR GFR 1.07 MG/DL (0.70-1.30); GLOMERULAR FILTRATION RATE > 60.0 (>56); GLUCOSE, FASTING 132 MG/DL (70-100); MAGNESIUM LEVEL 2.4 MG/DL (1.8-2.4); POTASSIUM SERUM 3.8 MEQ/L (3.5-5.1); SODIUM LEVEL 142 MEQ/L (136-145)
[2017-06-17] MEDS: ADVAIR HFA 230/21MCG INHALER INH ×2 (08:23→20:42)
[2017-06-17 08:38] LABS: NT-PRO BNP 939 PG/ML (<125)
[2017-06-17] MEDS: MAALOX 30 ML SUSP *UDC PO ×2 (08:56→20:12)
[2017-06-17] MEDS: ASPIRIN 325 MG TAB PO (08:57)
[2017-06-17] MEDS: predniSONE 20 MG TAB PO ×2 (08:57→21:54)
[2017-06-17] MEDS: FUROSEMIDE 40 MG/4 ML VIAL (J1940) IV ×2 (08:57→12:44)
[2017-06-17] MEDS: ENOXAPARIN 40 MG/0.4 ML SYRINGE (J1650) SC (08:57)
[2017-06-17] MEDS: VITAMIN D 1,000 INTERNATIONAL UNITS TABLET PO (08:58)
[2017-06-17] MEDS: FAMOTIDINE 20 MG TAB PO ×2 (08:58→21:53)
[2017-06-17] MEDS: OSELTAMIVIR PHOSPHATE 75 MG CAP (TAMIFLU) PO ×2 (08:58→21:54)
[2017-06-17] MEDS: CYANOCOBALAMIN 500 MCG TAB PO (08:58)
[2017-06-17] MEDS: SIMVASTATIN 40 MG TAB PO (08:58)
[2017-06-17] MEDS: guaiFENesin/CODEINE SYRUP 5 ML UDC PO ×2 (10:26→20:12)
[2017-06-17] MEDS: DEXTROMETHORPHAN 60MG/10ML SUSP 90ML BTL(DELSYM) PO (16:07)
[2017-06-17] MEDS: DIGOXIN 0.25 MG TAB PO (20:04)
[2017-06-17] MEDS: ODEFSEY PO (21:00)
[2017-06-17] MEDS: SPIRONOLACTONE 12.5MG PER 1/2 TABLET PO (21:53)
[2017-06-17] MEDS: NORTRIPTYLINE 25 MG CAP PO (21:53)
[2017-06-17] MEDS: LISINOPRIL 5 MG TAB PO (21:55)
[2017-06-17] MEDS: CARVedilol 3.125 MG TAB PO (21:56)
[2017-06-18] MEDS: guaiFENesin/CODEINE SYRUP 5 ML UDC PO ×2 (02:42→22:51)
[2017-06-18] MEDS: LEVALBUTEROL 1.25 MG/0.5 ML CONCENTRATE NEB INH ×5 (02:52→21:45)
[2017-06-18] MEDS: LORazepam 2 MG/ML VIAL (J2060) IV (03:57)
[2017-06-18 06:21] LABS: BASO # 0.1 10^3/uL (0.0-0.2); BASO % 0.5 % (0.0-1.0); HEMATOCRIT 39.9 % (42.0-52.0); HEMOGLOBIN 13.6 g/dl (14.0-18.0); IMMATURE GRANULOCYTE % 3.8 % (0-3.0); LYMPH # 1.3 10^3/uL (1.5-4.5); MEAN CORPUSCULAR HEMOGLOBIN 31.9 pg (27.0-33.0); MEAN CORPUSCULAR HGB CONC 34.1 g/dl (32.0-36.5); MEAN CORPUSCULAR VOLUME 93.7 fl (80.0-96.0); MONO # 1.1 10^3/uL (0.0-0.8); NEUTROPHILS # 11.2 10^3/uL (1.8-7.7); NEUTROPHILS % 78.7 % (36.0-66.0); PLATELET COUNT, AUTOMATED 268 10^3/uL (150-450); RED BLOOD COUNT 4.26 10^6/uL (4.30-6.10); WHITE BLOOD COUNT 14.2 10^3/uL (4.0-10.0)
[2017-06-18 06:58] LABS: ANION GAP 8 MEQ/L (8-16); BLOOD UREA NITROGEN 24 MG/DL (7-18); CARBON DIOXIDE LEVEL 32 MEQ/L (21-32); CHLORIDE LEVEL 103 MEQ/L (98-107); CHOLESTEROL LEVEL 178 MG/DL (<200); CREATININE FOR GFR 1.03 MG/DL (0.70-1.30); GLOMERULAR FILTRATION RATE > 60.0 (>56); GLUCOSE, FASTING 125 MG/DL (70-100); HDL CHOLESTEROL 46 MG/DL (>40); POTASSIUM SERUM 4.1 MEQ/L (3.5-5.1); SODIUM LEVEL 143 MEQ/L (136-145); TRIGLYCERIDES LEVEL 194 MG/DL (<150)
[2017-06-18 06:59] LABS: CHOLESTEROL RISK RATIO 3.869 (<5); DIGOXIN LEVEL 0.3 NG/ML (0.5-2.0); LDL CHOLESTEROL 93.2 MG/DL (<100); MAGNESIUM LEVEL 2.7 MG/DL (1.8-2.4); NON-HDL-C 132 MG/DL
[2017-06-18] MEDS: SIMETHICONE 80 MG CHEW TAB PO ×4 (09:35→20:06)
[2017-06-18] MEDS: FAMOTIDINE 20 MG TAB PO ×2 (09:36→20:08)
[2017-06-18] MEDS: ASPIRIN 325 MG TAB PO (09:36)
[2017-06-18] MEDS: predniSONE 20 MG TAB PO (09:36)
[2017-06-18] MEDS: SIMVASTATIN 40 MG TAB PO (09:36)
[2017-06-18] MEDS: TORSEMIDE 20 MG TAB PO (09:36)
[2017-06-18] MEDS: VITAMIN D 1,000 INTERNATIONAL UNITS TABLET PO (09:36)
[2017-06-18] MEDS: CARVedilol 3.125 MG TAB PO ×2 (09:36→20:08)
[2017-06-18] MEDS: CYANOCOBALAMIN 500 MCG TAB PO (09:37)
[2017-06-18] MEDS: ENOXAPARIN 40 MG/0.4 ML SYRINGE (J1650) SC (09:37)
[2017-06-18] MEDS: DIGOXIN 0.25 MG TAB PO (09:39)
[2017-06-18] MEDS: ADVAIR HFA 230/21MCG INHALER INH (10:29)
[2017-06-18] MEDS: NORTRIPTYLINE 25 MG CAP PO (20:06)
[2017-06-18] MEDS: SPIRONOLACTONE 12.5MG PER 1/2 TABLET PO (20:06)
[2017-06-18] MEDS: LISINOPRIL 5 MG TAB PO (20:07)
[2017-06-18] MEDS: ODEFSEY PO (20:08)
[2017-06-19] MEDS: LEVALBUTEROL 1.25 MG/0.5 ML CONCENTRATE NEB INH ×7 (00:09→23:53)
[2017-06-19 06:35] LABS: HEMATOCRIT 43.9 % (42.0-52.0); HEMOGLOBIN 14.9 g/dl (14.0-18.0); MEAN CORPUSCULAR HGB CONC 33.9 g/dl (32.0-36.5); MEAN CORPUSCULAR VOLUME 94.2 fl (80.0-96.0); PLATELET COUNT, AUTOMATED 296 10^3/uL (150-450); RED BLOOD COUNT 4.66 10^6/uL (4.30-6.10); WHITE BLOOD COUNT 14.8 10^3/uL (4.0-10.0)
[2017-06-19 06:40] LABS: ADD MANUAL DIFFER YES; DIFF SLIDE NUMBER 53; POS COUNT POS FLAG; POSITIVE MORPH POS FLAG
[2017-06-19 06:53] LABS: ANION GAP 7 MEQ/L (8-16); BLOOD UREA NITROGEN 27 MG/DL (7-18); CALCIUM LEVEL 9.1 MG/DL (8.5-10.1); CARBON DIOXIDE LEVEL 31 MEQ/L (21-32); CHLORIDE LEVEL 102 MEQ/L (98-107); CREATININE FOR GFR 1.18 MG/DL (0.70-1.30); GLOMERULAR FILTRATION RATE > 60.0 (>56); GLUCOSE, FASTING 78 MG/DL (70-100); POTASSIUM SERUM 3.7 MEQ/L (3.5-5.1); SODIUM LEVEL 140 MEQ/L (136-145)
[2017-06-19] MEDS: ACETAMINOPHEN TAB 650MG DOSE (2X325MG) PO (06:53)
[2017-06-19 07:07] LABS: ATYPICAL LYMPH 4 % (0-5); LYMPHOCYTES 25 % (16-52); METAMYELOCYTES 1 % (0-0); MONOCYTES 5 % (0-8); NEUTROPHILS 65 % (35-75)
[2017-06-19 07:08] LABS: PLATELET ESTIMATE NORMAL (NORMAL)
[2017-06-19] MEDS: ASPIRIN 325 MG TAB PO (08:45)
[2017-06-19] MEDS: ENOXAPARIN 40 MG/0.4 ML SYRINGE (J1650) SC (08:46)
[2017-06-19] MEDS: VITAMIN D 1,000 INTERNATIONAL UNITS TABLET PO (08:46)
[2017-06-19] MEDS: predniSONE 20 MG TAB PO (08:47)
[2017-06-19] MEDS: FAMOTIDINE 20 MG TAB PO ×2 (08:47→20:47)
[2017-06-19] MEDS: SIMVASTATIN 40 MG TAB PO (08:47)
[2017-06-19] MEDS: DIGOXIN 0.25 MG TAB PO (08:47)
[2017-06-19] MEDS: SIMETHICONE 80 MG CHEW TAB PO ×4 (08:48→20:47)
[2017-06-19] MEDS: CARVedilol 3.125 MG TAB PO ×2 (08:49→20:48)
[2017-06-19] MEDS: CYANOCOBALAMIN 500 MCG TAB PO (08:49)
[2017-06-19] MEDS: TORSEMIDE 20 MG TAB PO (08:50)
[2017-06-19] MEDS: ADVAIR HFA 230/21MCG INHALER INH ×2 (09:21→21:56)
[2017-06-19] MEDS: guaiFENesin/CODEINE SYRUP 5 ML UDC PO (20:46)
[2017-06-19] MEDS: NORTRIPTYLINE 25 MG CAP PO (20:47)
[2017-06-19] MEDS: SPIRONOLACTONE 12.5MG PER 1/2 TABLET PO (20:47)
[2017-06-19] MEDS: ODEFSEY PO (20:48)
[2017-06-19] MEDS: LISINOPRIL 10 MG TAB PO (20:48)
[2017-06-19] MEDS: MAALOX 30 ML SUSP *UDC PO (22:38)
[2017-06-20] MEDS: LEVALBUTEROL 1.25 MG/0.5 ML CONCENTRATE NEB INH ×6 (04:00→23:23)
[2017-06-20] MEDS: ACETAMINOPHEN TAB 650MG DOSE (2X325MG) PO (06:46)
[2017-06-20 06:56] LABS: HEMATOCRIT 47.6 % (42.0-52.0); HEMOGLOBIN 16.1 g/dl (14.0-18.0); MEAN CORPUSCULAR HEMOGLOBIN 31.6 pg (27.0-33.0); MEAN CORPUSCULAR HGB CONC 33.8 g/dl (32.0-36.5); MEAN CORPUSCULAR VOLUME 93.5 fl (80.0-96.0); PLATELET COUNT, AUTOMATED 351 10^3/uL (150-450); RED BLOOD COUNT 5.09 10^6/uL (4.30-6.10); WHITE BLOOD COUNT 13.2 10^3/uL (4.0-10.0)
[2017-06-20 07:03] LABS: ADD MANUAL DIFFER YES; DIFF SLIDE NUMBER 41; POS COUNT POS FLAG; POSITIVE MORPH POS FLAG
[2017-06-20 07:20] LABS: ANION GAP 8 MEQ/L (8-16); BLOOD UREA NITROGEN 30 MG/DL (7-18); CALCIUM LEVEL 9.4 MG/DL (8.5-10.1); CARBON DIOXIDE LEVEL 35 MEQ/L (21-32); CHLORIDE LEVEL 99 MEQ/L (98-107); CREATININE FOR GFR 1.26 MG/DL (0.70-1.30); GLOMERULAR FILTRATION RATE > 60.0 (>56); GLUCOSE, FASTING 89 MG/DL (70-100); POTASSIUM SERUM 3.3 MEQ/L (3.5-5.1); SODIUM LEVEL 142 MEQ/L (136-145)
[2017-06-20 07:26] LABS: ATYPICAL LYMPH 3 % (0-5); LYMPHOCYTES 14 % (16-52); METAMYELOCYTES 1 % (0-0); MONOCYTES 10 % (0-8); NEUTROPHILS 72 % (35-75); PLATELET ESTIMATE NORMAL (NORMAL)
[2017-06-20] MEDS: POTASSIUM CHLORIDE 10 MEQ SR TABLET PO (08:06)
[2017-06-20] MEDS: SIMETHICONE 80 MG CHEW TAB PO ×4 (08:06→21:21)
[2017-06-20] MEDS: ASPIRIN 325 MG TAB PO (08:06)
[2017-06-20] MEDS: predniSONE 20 MG TAB PO (08:06)
[2017-06-20] MEDS: VITAMIN D 1,000 INTERNATIONAL UNITS TABLET PO (08:06)
[2017-06-20] MEDS: FAMOTIDINE 20 MG TAB PO ×2 (08:06→21:22)
[2017-06-20] MEDS: SIMVASTATIN 40 MG TAB PO (08:06)
[2017-06-20] MEDS: CYANOCOBALAMIN 500 MCG TAB PO (08:06)
[2017-06-20] MEDS: CARVedilol 6.25 MG TAB PO ×2 (08:07→21:22)
[2017-06-20] MEDS: ENOXAPARIN 40 MG/0.4 ML SYRINGE (J1650) SC (08:07)
[2017-06-20] MEDS: ADVAIR HFA 230/21MCG INHALER INH (08:12)
[2017-06-20] MEDS: NYSTATIN 500,000 U/5 ML SUSP UDC SS ×2 (11:22→17:47)
[2017-06-20] MEDS: TORSEMIDE 10 MG TABLET PO (11:23)
[2017-06-20] MEDS ORDERED: NITROGLYCERIN 0.4 MG SUBL TABLET As Ordered (14:03)
[2017-06-20] MEDS ORDERED: NITROGLYCERIN 0.3 MG SUBL TAB SL (14:05)
[2017-06-20] MEDS: NITROGLYCERIN 0.4 MG SUBL TABLET SL (14:10)
[2017-06-20 14:22] LABS: BEDSIDE GLUCOSE 183 MG/DL (70-105)
[2017-06-20] MEDS ORDERED: ISOVUE-370 76% 100ML VIAL (Q9967) As Ordered (14:40)
[2017-06-20 15:35] LABS: CPK CREATINE PHOSPHOKINASE 73 U/L (39-308); TROPONIN I 0.02 NG/ML (< 0.10)
[2017-06-20] MEDS: GI COCKTAIL 50ML BTL(HYOSCYAMINE/MAALOX/LIDOCAINE VISCOUS)(1:3:1) PO (16:23)
[2017-06-20 16:26] LABS: CK-MB VALUE MASS 1.3 NG/ML (0.0-3.6); MB/CK RELATIVE INDEX 1.78 (< OR =4)
[2017-06-20 20:56] LABS: CPK CREATINE PHOSPHOKINASE 73 U/L (39-308); TROPONIN I < 0.02 NG/ML (< 0.10)
[2017-06-20 20:57] LABS: CK-MB VALUE MASS 1.3 NG/ML (0.0-3.6); MB/CK RELATIVE INDEX 1.78 (< OR =4)
[2017-06-20] MEDS: SPIRONOLACTONE 12.5MG PER 1/2 TABLET PO (21:20)
[2017-06-20] MEDS: guaiFENesin/CODEINE SYRUP 5 ML UDC PO (21:20)
[2017-06-20] MEDS: ODEFSEY PO (21:20)
[2017-06-20] MEDS: BENZOCAINE 20% GEL 9GM TUBE (ANBESOL MAX STRENGTH) XX (21:20)
[2017-06-20] MEDS: NORTRIPTYLINE 25 MG CAP PO (21:21)
[2017-06-20] MEDS: LISINOPRIL 10 MG TAB PO (21:22)
[2017-06-20] MEDS: MAALOX 30 ML SUSP *UDC PO (23:09)
[2017-06-21] MEDS: NYSTATIN 500,000 U/5 ML SUSP UDC SS ×2 (00:28→05:54)
[2017-06-21 02:54] LABS: CPK CREATINE PHOSPHOKINASE 56 U/L (39-308); TROPONIN I 0.03 NG/ML (< 0.10)
[2017-06-21 02:55] LABS: CK-MB VALUE MASS 1.3 NG/ML (0.0-3.6); MB/CK RELATIVE INDEX 2.32 (< OR =4)
[2017-06-21] MEDS: LEVALBUTEROL 1.25 MG/0.5 ML CONCENTRATE NEB INH ×2 (03:54→08:00)
[2017-06-21 07:07] LABS: HEMATOCRIT 47.1 % (42.0-52.0); HEMOGLOBIN 15.7 g/dl (14.0-18.0); MEAN CORPUSCULAR HEMOGLOBIN 31.7 pg (27.0-33.0); MEAN CORPUSCULAR HGB CONC 33.3 g/dl (32.0-36.5); PLATELET COUNT, AUTOMATED 336 10^3/uL (150-450); RED BLOOD COUNT 4.96 10^6/uL (4.30-6.10); RED CELL DISTRIBUTION WIDTH 13.2 % (11.5-14.5); WHITE BLOOD COUNT 12.6 10^3/uL (4.0-10.0)
[2017-06-21 07:08] LABS: ADD MANUAL DIFFER YES; DIFF SLIDE NUMBER 34; POS COUNT POS FLAG; POSITIVE MORPH POS FLAG
[2017-06-21 07:18] LABS: ANION GAP 7 MEQ/L (8-16); BLOOD UREA NITROGEN 28 MG/DL (7-18); CALCIUM LEVEL 9.1 MG/DL (8.5-10.1); CARBON DIOXIDE LEVEL 32 MEQ/L (21-32); CHLORIDE LEVEL 103 MEQ/L (98-107); CREATININE FOR GFR 1.18 MG/DL (0.70-1.30); GLOMERULAR FILTRATION RATE > 60.0 (>56); GLUCOSE, FASTING 90 MG/DL (70-100); POTASSIUM SERUM 3.4 MEQ/L (3.5-5.1); SODIUM LEVEL 142 MEQ/L (136-145)
[2017-06-21 07:32] LABS: BANDS 3 % (< 11); EOSINOPHILS 1 % (0-5); LYMPHOCYTES 11 % (16-52); METAMYELOCYTES 4 % (0-0); MONOCYTES 6 % (0-8); MYELOCYTES 3 % (0-0); NEUTROPHILS 72 % (35-75)
[2017-06-21 07:33] LABS: PLATELET ESTIMATE NORMAL (NORMAL)
[2017-06-21] MEDS: ENOXAPARIN 40 MG/0.4 ML SYRINGE (J1650) SC (08:08)
[2017-06-21] MEDS: ASPIRIN 325 MG TAB PO (08:09)
[2017-06-21] MEDS: predniSONE 20 MG TAB PO (08:09)
[2017-06-21] MEDS: VITAMIN D 1,000 INTERNATIONAL UNITS TABLET PO (08:09)
[2017-06-21] MEDS: SIMVASTATIN 40 MG TAB PO (08:09)
[2017-06-21] MEDS: CYANOCOBALAMIN 500 MCG TAB PO (08:09)
[2017-06-21] MEDS: FAMOTIDINE 20 MG TAB PO (08:09)
[2017-06-21] MEDS: SIMETHICONE 80 MG CHEW TAB PO (08:10)
[2017-06-21] MEDS: TORSEMIDE 10 MG TABLET PO (08:10)
[2017-06-21] MEDS: ADVAIR HFA 230/21MCG INHALER INH (08:12)
[2017-06-21] MEDS: CARVedilol 6.25 MG TAB PO (08:16)
[2017-06-21] MEDS: BENZOCAINE 20% GEL 9GM TUBE (ANBESOL MAX STRENGTH) XX (08:17)
[2017-06-21] MEDS ORDERED: BENZOCAINE 10% 9GM TUBE (ANBESOL) TOP (11:00)
[2017-06-21] MEDS ORDERED: LISINOPRIL 20 MG TAB PO (21:00)
== END 2017-06-21 11:41 | disposition home or self-care (01) | DRG 892 ==
LOC: M ED INP 06-13 00:33 → M MSPAV 06-14 15:21 → M PCU 06-13 14:22 → M ED 19:51
DX: A41.89 Other specified sepsis (principal); B20 Human immunodeficiency virus [HIV] disease; J44.1 Chronic obstructive pulmonary disease with (acute) exacerbation; G43.909 Migraine, unspecified, not intractable, without status migrainosus; E53.8 Deficiency of other specified B group vitamins; I50.43 Acute on chronic combined systolic (congestive) and diastolic (congestive) heart failure; I42.0 Dilated cardiomyopathy; J10.1 Influenza due to other identified influenza virus with other respiratory manifestations; I34.0 Nonrheumatic mitral (valve) insufficiency; R91.8 Other nonspecific abnormal finding of lung field; Z79.899 Other long term (current) drug therapy; Z88.8 Allergy status to other drugs, medicaments and biological substances; Z87.442 Personal history of urinary calculi; Z87.891 Personal history of nicotine dependence

== ENCOUNTER → 2017-07-23 | Outpatient (CLI) | payer BC | LOC: M RAD 11:14 | DX: R91.8 Other nonspecific abnormal finding of lung field (principal); N20.0 Calculus of kidney | CPT/HCPCS: 71250 ==

== ENCOUNTER → 2017-09-11 | Outpatient (CLI) | payer BC ==
[2017-09-11 18:21] LABS: BASO % 0.5 % (0.0-1.0); EOS # 0.3 10^3/uL (0.0-0.50); EOS % 3.3 % (0.0-3.0); HEMATOCRIT 41.3 % (42.0-52.0); HEMOGLOBIN 13.7 g/dl (13.5-17.5); IMMATURE GRANULOCYTE % 0.8 % (0-3.0); LYMPH # 2.9 10^3/uL (1.5-4.5); LYMPH % 38.8 % (24.0-44.0); MEAN CORPUSCULAR HEMOGLOBIN 31.9 pg (27.0-33.0); MEAN CORPUSCULAR HGB CONC 33.2 g/dl (32.0-36.5); MEAN CORPUSCULAR VOLUME 96.3 fl (80.0-96.0); MONO # 0.8 10^3/uL (0.0-0.8); MONO % 10.7 % (0.0-5.0); NEUTROPHILS # 3.4 10^3/uL (1.8-7.7); NEUTROPHILS % 45.9 % (36.0-66.0); PLATELET COUNT, AUTOMATED 227 10^3/uL (150-450); RED BLOOD COUNT 4.29 10^6/uL (4.30-6.10); RED CELL DISTRIBUTION WIDTH 15.2 % (11.5-14.5); WHITE BLOOD COUNT 7.5 10^3/uL (4.0-10.0)
[2017-09-11 18:27] LABS: ANION GAP 6 MEQ/L (8-16); BLOOD UREA NITROGEN 18 MG/DL (7-18); CALCIUM LEVEL 9.6 MG/DL (8.5-10.1); CARBON DIOXIDE LEVEL 29 MEQ/L (21-32); CHLORIDE LEVEL 106 MEQ/L (98-107); CREATININE FOR GFR 1.14 MG/DL (0.70-1.30); GLOMERULAR FILTRATION RATE > 60.0 (>56); GLUCOSE, FASTING 90 MG/DL (70-100); POTASSIUM SERUM 4.1 MEQ/L (3.5-5.1); SODIUM LEVEL 141 MEQ/L (136-145)
== END ==
LOC: M LAB 17:02
DX: I42.9 Cardiomyopathy, unspecified (principal)
CPT/HCPCS: 80048

== ENCOUNTER 2017-10-07 12:18 | Emergency (ER) | payer BC ==
[2017-10-07] MEDS: ACETAMINOPH W/CODEINE #3 TAB UD PO (13:47)
== END 2017-10-07 14:40 | disposition home or self-care (01) ==
LOC: M ED 12:18
DX: S20.211A Contusion of right front wall of thorax, initial encounter (principal); I48.91 Unspecified atrial fibrillation; I50.9 Heart failure, unspecified; I11.0 Hypertensive heart disease with heart failure; J44.9 Chronic obstructive pulmonary disease, unspecified; F33.9 Major depressive disorder, recurrent, unspecified; Z21 Asymptomatic human immunodeficiency virus [HIV] infection status; Z87.891 Personal history of nicotine dependence; Z88.8 Allergy status to other drugs, medicaments and biological substances; Z79.899 Other long term (current) drug therapy; Z79.82 Long term (current) use of aspirin
CPT/HCPCS: 71101

== ENCOUNTER → 2018-01-21 | Outpatient (CLI) | payer BC | LOC: M RAD 12:55 | DX: J47.9 Bronchiectasis, uncomplicated (principal); J84.10 Pulmonary fibrosis, unspecified | CPT/HCPCS: 71250 ==

== ENCOUNTER → 2018-02-23 | Outpatient (CLI) | payer BC ==
[2018-02-23 12:44] LABS: ANION GAP 6 MEQ/L (8-16); BLOOD UREA NITROGEN 16 MG/DL (7-18); CALCIUM LEVEL 9.9 MG/DL (8.5-10.1); CARBON DIOXIDE LEVEL 31 MEQ/L (21-32); CHLORIDE LEVEL 103 MEQ/L (98-107); CREATININE FOR GFR 1.24 MG/DL (0.70-1.30); GLOMERULAR FILTRATION RATE > 60.0 (>56); GLUCOSE, FASTING 106 MG/DL (70-100); NT-PRO BNP 64 PG/ML (<125); POTASSIUM SERUM 4.3 MEQ/L (3.5-5.1); SODIUM LEVEL 140 MEQ/L (136-145)
== END ==
LOC: M LAB 12:00
DX: I50.9 Heart failure, unspecified (principal)
CPT/HCPCS: 80048

== ENCOUNTER 2018-03-11 08:18 | Emergency (ER) | payer BC ==
[2018-03-11 09:06] LABS: BASO # 0.1 10^3/uL (0.0-0.2); BASO % 0.7 % (0.0-1.0); EOS # 0.2 10^3/uL (0.0-0.50); EOS % 1.9 % (0.0-3.0); HEMATOCRIT 48.1 % (42.0-52.0); HEMOGLOBIN 16.2 g/dl (13.5-17.5); IMMATURE GRANULOCYTE % 1.3 % (0-3.0); LYMPH # 2.5 10^3/uL (1.5-4.5); LYMPH % 29.5 % (24.0-44.0); MEAN CORPUSCULAR HEMOGLOBIN 33.5 pg (27.0-33.0); MEAN CORPUSCULAR HGB CONC 33.7 g/dl (32.0-36.5); MEAN CORPUSCULAR VOLUME 99.6 fl (80.0-96.0); MONO % 11.3 % (0.0-5.0); NEUTROPHILS # 4.8 10^3/uL (1.8-7.7); NEUTROPHILS % 55.3 % (36.0-66.0); PLATELET COUNT, AUTOMATED 243 10^3/uL (150-450); RED BLOOD COUNT 4.83 10^6/uL (4.30-6.10); RED CELL DISTRIBUTION WIDTH 12.9 % (11.5-14.5); WHITE BLOOD COUNT 8.6 10^3/uL (4.0-10.0)
[2018-03-11 09:31] LABS: ANION GAP 6 MEQ/L (8-16); BLOOD UREA NITROGEN 19 MG/DL (7-18); CALCIUM LEVEL 10.2 MG/DL (8.5-10.1); CARBON DIOXIDE LEVEL 29 MEQ/L (21-32); CHLORIDE LEVEL 103 MEQ/L (98-107); CREATININE FOR GFR 1.38 MG/DL (0.70-1.30); GLOMERULAR FILTRATION RATE 56.3 (>56); GLUCOSE, FASTING 89 MG/DL (70-100); SODIUM LEVEL 138 MEQ/L (136-145)
== END 2018-03-11 10:33 | disposition home or self-care (01) ==
LOC: M ED 08:18
DX: T82.7XXA Infection and inflammatory reaction due to other cardiac and vascular devices, implants and grafts, initial encounter (principal); I48.91 Unspecified atrial fibrillation; I50.9 Heart failure, unspecified; J44.9 Chronic obstructive pulmonary disease, unspecified; B20 Human immunodeficiency virus [HIV] disease; E53.8 Deficiency of other specified B group vitamins
CPT/HCPCS: 76604

== ENCOUNTER → 2018-05-27 | Outpatient (REF) | payer BC ==
[~2018-05-27] MED LIST changes: +ACET30TAB PO; +ALDA25TA2 PO; +ASPI1TAB20 PO; +CARV25TA; +CARV6.25 PO; +CEPH500C; +DIOV80TA3 PO; +FLUT22IN; +LISI-538 PO; +PRED10TA2 PO; +Patient Own Medication PO; +RANI150T PO; +TORS10TA3 PO; +ZANT150T15 PO; -ZANT1TAB PO
[2018-05-27 14:12] LABS: HEPATITIS B SURFACE ANTIGEN NEGATIVE (NEGATIVE); RUBELLA IgG QUALITATIVE IMMUNE (IMMUNE)
[2018-05-28 14:17] LABS: MUMPS VIRUS IgG ANTIBODY 9.7 AU/mL (Immune >10.9)
[2018-05-29 09:46] LABS: HEPATITIS B SURFACE ANTIBODY POSITIVE (POSITIVE)
== END ==
LOC: M LAB REF 12:02
PROVIDERS: ATTEND Internal Medicine
DX: Z02.1 Encounter for pre-employment examination (principal)

== ENCOUNTER 2018-08-16 02:01 | Emergency (ER) | payer BC, OTHER ==
[~2018-08-16] VITALS: Ht 162.6 cm; Wt 60.0 kg
[~2018-08-16 02:01] MED LIST changes: +ACET-716 PO; -ACET30TAB PO; -CARV25TA; +CARV25TA PO; -FLUT22IN; +FLUT22IN INH
[2018-08-16] MEDS ORDERED: ENTR1TAB4 PO (02:24)
[2018-08-16] MEDS ORDERED: MORPHINE 2 MG/ML 1ML SYRINGE (J2270) IV PRN (02:45)
[2018-08-16 02:46] LABS: BASO % 0.5 % (0.0-1.0); EOS # 0.3 10^3/uL (0.0-0.50); EOS % 3.2 % (0.0-3.0); HEMATOCRIT 39.9 % (42.0-52.0); HEMOGLOBIN 13.4 g/dl (13.5-17.5); LYMPH % 35.8 % (24.0-44.0); MEAN CORPUSCULAR HEMOGLOBIN 33.8 pg (27.0-33.0); MEAN CORPUSCULAR HGB CONC 33.6 g/dl (32.0-36.5); MEAN CORPUSCULAR VOLUME 100.5 fl (80.0-96.0); MONO # 0.9 10^3/uL (0.0-0.8); MONO % 11.1 % (0.0-5.0); NEUTROPHILS # 4.1 10^3/uL (1.8-7.7); NEUTROPHILS % 48.8 % (36.0-66.0); PLATELET COUNT, AUTOMATED 205 10^3/uL (150-450); RED BLOOD COUNT 3.97 10^6/uL (4.30-6.10); WHITE BLOOD COUNT 8.4 10^3/uL (4.0-10.0)
[2018-08-16 02:50] LABS: INR 0.97
[2018-08-16 02:51] LABS: PARTIAL THROMBOPLASTIN TIME 32.3 SECONDS (25.4-37.6)
[2018-08-16 02:53] LABS: D-DIMER QUANT 371.87 ng/ml (<500)
[2018-08-16 02:59] LABS: BLOOD UREA NITROGEN 17 MG/DL (7-18); CARBON DIOXIDE LEVEL 27 MEQ/L (21-32); CHLORIDE LEVEL 108 MEQ/L (98-107); CPK CREATINE PHOSPHOKINASE 98 U/L (39-308); GLOMERULAR FILTRATION RATE > 60.0 (>56); GLUCOSE, FASTING 95 MG/DL (70-100); MB/CK RELATIVE INDEX 1.02 (< OR =4); NT-PRO BNP 29 PG/ML (<125); SODIUM LEVEL 140 MEQ/L (136-145); TROPONIN I < 0.02 NG/ML (< 0.10)
[2018-08-16 04:30] VITALS: BP 108/69
[2018-08-16] MEDS ORDERED: NAPROXEN 250 MG TAB PO ONE (04:30)
[2018-08-16] MEDS ORDERED: NAPR-837 PO (04:32)
--- NOTE | 2018-08-16 08:52 | REP ---
Portable chest x-ray: Single view. History: Chest pain. Comparison chest x-ray is from October 07, 2017. Findings: In the interval since the last exam, a dual lead pacemaker has been installed via the left side into the right heart. Oxygen delivery tubing and EKG monitoring electrodes are also present. The lungs are well inflated and clear. Heart is not enlarged. Pulmonary vasculature is not increased. There are orthopedic metallic anchors in both proximal humeri. Impression: Pacemaker in place. Otherwise no acute disease. Electronically Signed by Gerson Cotto MD 08/16/2018 09:27 A
--- NOTE | 2018-08-16 19:48 | ECGEPIP ---
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
[2018-08-28] MEDS ORDERED: COLA100C5 PO (08:21)
[2018-08-28] MEDS ORDERED: ALDA25TA2 PO (08:21)
[2018-08-28] MEDS ORDERED: VENTAER INH (08:21)
== END 2018-08-16 05:01 | disposition home or self-care (01) ==
LOC: M ED 02:01
DX: R07.89 Other chest pain (principal); I50.9 Heart failure, unspecified; J45.909 Unspecified asthma, uncomplicated; B20 Human immunodeficiency virus [HIV] disease; Z87.442 Personal history of urinary calculi; G43.909 Migraine, unspecified, not intractable, without status migrainosus; Z85.47 Personal history of malignant neoplasm of testis; Z87.891 Personal history of nicotine dependence; Z95.0 Presence of cardiac pacemaker; Z95.810 Presence of automatic (implantable) cardiac defibrillator; Z79.82 Long term (current) use of aspirin; Z79.899 Other long term (current) drug therapy; Z88.8 Allergy status to other drugs, medicaments and biological substances
CPT/HCPCS: 71045; 80048; 82550; 82553; 83880; 84484; 85025; 85379; 85610; 85730; 93005; 93041; 94760; 96374; 99285; J2270

== ENCOUNTER 2018-08-29 05:43 | Day surgery (SDC) | payer OTHER ==
[~2018-08-29] VITALS: Ht 162.6 cm; Wt 59.0 kg
[~2018-08-29 05:43] MED LIST changes: +COLA100C5 PO; +ENTR1TAB4 PO; +NAPR-837 PO; +VENTAER INH
[2018-08-29] MEDS ORDERED: LR 1,000 ML IV ONE (06:00)
[2018-08-29] MEDS ORDERED: CETACAINE SPRAY 5GM As Ordered ONE (07:14)
[2018-08-29] MEDS ORDERED: LIDOCAINE VISCOUS 2% SOLN 15ML UDC As Ordered ONE (07:15)
[2018-08-29] MEDS ORDERED: PROPOFOL 200 MG/20 ML VIAL As Ordered ONE (07:29)
[2018-08-29] MEDS ORDERED: fentaNYL 100 MCG/2 ML INJECTION (J3010) As Ordered ONE (07:29)
[2018-08-29 08:50] VITALS: BP 91/52
--- NOTE | 2018-08-30 08:25 | T-ECHO ---
DATE OF PROCEDURE: 08/29/2018 INDICATION: Mitral insufficiency. PROCEDURE: Transesophageal echocardiogram ANESTHESIA: Tevin Adams CRNA BRIEF HISTORY: Mr. Castillo is a 58-year-old man who has dilated cardiomyopathy. During his prior evaluations with echocardiogram and cardiac catheterization, he was felt to have potentially severe mitral insufficiency. Eventually, we decided to proceed with transesophageal echocardiogram to provide definite evaluation of the mitral valve. It needs to be pointed out that since his last echocardiogram he has had very aggressive medical therapy for left ventricular systolic dysfunction and has had implantation of defibrillator. PROCEDURE NOTE: The procedure was performed in the operating room. He was brought to hospital in fasting state. Appropriate consent was obtained already prior to the day of procedure on outpatient basis. After he was again briefly examined and evaluated, he was taken to the operating room. Anesthesiology provided sedation. After appropriate time-out, his posterior pharynx was anesthetized using viscous lidocaine and Cetacaine spray. Bite block was placed and secured using a rubber band. Appropriate monitors were applied. He was positioned on his left side. After appropriate sedation was accomplished, the probe was introduced into esophagus and later stomach without any difficulty. After appropriate images were obtained, it was withdrawn. There were no immediate complications and patient tolerated the procedure well. FINDINGS: Left ventricle appears to have only mildly reduced left ventricular systolic function with global hypokinesis. I estimate overall left ventricular ejection fraction (LVEF) around 45%. Right ventricle also appears normal. Both atria appear grossly normal. There are an echo artifact in the right-sided heart chambers consistent with ICD leads. Mitral valve has normal leaflet mobility. No prolapse is appreciated. By color Doppler imaging, there is only mild mitral insufficiency. Aortic valve has three leaflets. They are pliable and mobility is preserved. No stenosis or insufficiency by color Doppler imaging. Pulmonic valve is also normal. By color Doppler imaging, there is only trace pulmonic insufficiency. Tricuspid valve has trace tricuspid insufficiency. Unfortunately, quality of TR jet was not sufficient to adequately estimate pulmonary artery pressure. Left atrial appendage is large but is free of thrombi. There is normal flow in both right-sided and left-sided pulmonary veins. Atrial septum is intact based on two-dimensional and color Doppler imaging. Aortic root, aortic arch and visualized segment of descending aorta are free of significant atherosclerosis. CONCLUSIONS: 1. Mild global left ventricular systolic dysfunction with overall estimated LVEF around 45%. 2. Only mild mitral insufficiency. 3. Normal aortic, tricuspid and pulmonic valvular function. 4. Intact atrial septum. 5. Normal flow in pulmonary veins. 6. No significant thoracic aortic atherosclerosis. COMMENT: Subacute bacterial endocarditis (SBE) prophylaxis is not recommended. Results of the study were communicated to the patient and his partner. He was discharged on his chronic medications. JAY
== END 2018-08-29 08:57 | disposition home or self-care (01) ==
LOC: M SDC 05:43
PROVIDERS: ATTEND Internal Medicine Cardiovascular Disease
DX: I34.0 Nonrheumatic mitral (valve) insufficiency (principal); I48.91 Unspecified atrial fibrillation; Z95.810 Presence of automatic (implantable) cardiac defibrillator; I10 Essential (primary) hypertension; B20 Human immunodeficiency virus [HIV] disease; E78.5 Hyperlipidemia, unspecified; K21.9 Gastro-esophageal reflux disease without esophagitis; Z87.891 Personal history of nicotine dependence; Z79.899 Other long term (current) drug therapy; Z79.51 Long term (current) use of inhaled steroids; Z79.82 Long term (current) use of aspirin; J44.9 Chronic obstructive pulmonary disease, unspecified
CPT/HCPCS: 93312; 93320; 93325; J3010

== ENCOUNTER 2018-09-01 18:09 | Inpatient (IN) | payer OTHER ==
[~2018-09-01] VITALS: Ht 162.6 cm; Wt 62.8 kg
[2018-09-01] MEDS ORDERED: NS 1,000 ML IV ONE (18:30)
[2018-09-01] MEDS ORDERED: MORPHINE 4 MG/ML 1ML VIAL/SYRINGE (J2270) IV ONE (18:45)
[2018-09-01 19:04] LABS: BASO % 0.3 % (0.0-1.0); EOS # 0.2 10^3/uL (0.0-0.50); EOS % 3.1 % (0.0-3.0); HEMATOCRIT 41.7 % (42.0-52.0); HEMOGLOBIN 13.8 g/dl (13.5-17.5); LYMPH # 2.8 10^3/uL (1.5-4.5); LYMPH % 35.5 % (24.0-44.0); MEAN CORPUSCULAR HEMOGLOBIN 33.8 pg (27.0-33.0); MEAN CORPUSCULAR HGB CONC 33.1 g/dl (32.0-36.5); MEAN CORPUSCULAR VOLUME 102.2 fl (80.0-96.0); MONO # 0.7 10^3/uL (0.0-0.8); MONO % 9.3 % (0.0-5.0); NEUTROPHILS % 51.3 % (36.0-66.0); PLATELET COUNT, AUTOMATED 222 10^3/uL (150-450); RED BLOOD COUNT 4.08 10^6/uL (4.30-6.10); WHITE BLOOD COUNT 7.8 10^3/uL (4.0-10.0)
[2018-09-01] MEDS ORDERED: KETOROLAC 30 MG/ML VIAL (J1885) IV ONE (19:30)
[2018-09-01 19:33] LABS: APPEARANCE, URINE CLEAR (CLEAR); BACTERIA, URINE AUTO NEGATIVE (NEGATIVE); BILIRUBIN, URINE AUTO NEGATIVE (NEGATIVE); BLOOD, URINE BLOOD 2+ (NEGATIVE); COLOR, URINE YELLOW (YELLOW); GLUCOSE, URINE (UA) AUTO NEGATIVE (NEGATIVE); KETONE, URINE AUTO TRACE mg/dL (NEGATIVE); LEUKOCYTE ESTERASE, URINE AUTO NEGATIVE (NEGATIVE); MUCUS, URINE SMALL (NEGATIVE); NITRITE, URINE AUTO NEGATIVE (NEGATIVE); PROTEIN, URINE AUTO 1+ mg/dL (NEGATIVE); RBC, URINE AUTO TNTC /HPF (0-3); SPECIFIC GRAVITY URINE AUTO 1.026 (1.002-1.035); SQUAMOUS EPITHELIAL CELL UR AU 0 /HPF (0-6); UROBILINOGEN, URINE AUTO 0.2 mg/dL (0.0-2.0); WBC, URINE AUTO 6 /HPF (0-3)
[2018-09-01 19:34] LABS: ALBUMIN 3.8 GM/DL (3.2-5.2); ALT/SGPT 27 U/L (12-78); BILIRUBIN,DIRECT < 0.1 MG/DL (0.0-0.2); BILIRUBIN,TOTAL 0.2 MG/DL (0.2-1.0); BLOOD UREA NITROGEN 19 MG/DL (7-18); CALCIUM LEVEL 9.2 MG/DL (8.5-10.1); CARBON DIOXIDE LEVEL 29 MEQ/L (21-32); CHLORIDE LEVEL 108 MEQ/L (98-107); CREATININE FOR GFR 1.58 MG/DL (0.70-1.30); GLOMERULAR FILTRATION RATE 48.2 (>56); GLUCOSE, FASTING 107 MG/DL (70-100); LIPASE 127 U/L (73-393); POTASSIUM SERUM 4.4 MEQ/L (3.5-5.1); SODIUM LEVEL 143 MEQ/L (136-145); TOTAL PROTEIN 6.5 GM/DL (6.4-8.2)
--- NOTE | 2018-09-01 20:04 | REPVR ---
EXAM: CT Abdomen and Pelvis Without Contrast EXAM DATE/TIME: 09/01/2018 7:03 PM CLINICAL HISTORY: 58 years old, male; Other: Llq pain; Additional info: Llq pain, possible ureteral calculi TECHNIQUE: Imaging protocol: Axial computed tomography images of the abdomen and pelvis without contrast. Coronal and sagittal reformatted images were created and reviewed. Radiation optimization: All CT scans at this facility use at least one of these dose optimization techniques: automated exposure control; mA and/or kV adjustment per patient size (includes targeted exams where dose is matched to clinical indication); or iterative reconstruction. COMPARISON: CT ABD PELVIS W/O CONTRAST 01/25/2017 10:11 PM FINDINGS: Tubes, catheters and devices: Pacemaker electrodes noted within the heart. Lungs: Rare scattered areas of centrilobular type emphysema at the lung bases. Mediastinum: Small sliding hiatal hernia. ABDOMEN: Liver: Normal. No mass. Gallbladder and bile ducts: Normal. No calcified stones. No ductal dilation. Pancreas: Normal. No ductal dilation. Spleen: Calcification noted adjacent to the splenic capsule at the level of the diaphragm. No change. No splenomegaly. Adrenals: Normal. No mass. Kidneys and ureters: Right: 2.2 cm low-density lesion in the lower pole the right kidney.1.6 cm low-density lesion in the midportion of the right kidney. 2.6 cm calcification lower pole the right kidney. 2 mm calcification in the upper pole the right kidney. Left: Moderate left hydronephrosis and hydroureter. 2.4 mm calcification in the upper pole of left kidney. 1.8 mm calcification in the upper/midportion of the left kidney. 2 mm calcification midportion left kidney. 2.5 mm calcification in the lower pole of the left kidney. 3.2 mm calcification in the lower pole left kidney. 9.1 mm calcification in the distal left ureter with a density measurement of 1377H. Ureteral calcification is located at the level of the third sacral segment. Stomach and bowel: Moderate amount of stool seen in the colon. No obstruction. No mucosal thickening. Appendix: Not seen as a separate structure.. PELVIS: Bladder: Unremarkable as visualized. Reproductive: Calcifications within the prostate. Prostate measures 4.5 x 3.2 x 3.8 cm. ABDOMEN and PELVIS: Intraperitoneal space: Normal. No free air. No significant fluid collection. Bones/joints: No acute fracture. No dislocation. Soft tissues: There is a left inguinal hernia containing fat.Minimal soft tissue thickening of the margins of the hernia unchanged from 01/25/2017. 1.3 cm umbilical hernia containing fat. No signs of strangulation. Vasculature: Arteriosclerosis. No abdominal aortic aneurysm. Lymph nodes: Normal. No enlarged lymph nodes. Other findings: There is arteriosclerosis. IMPRESSION: Moderate left-sided hydronephrosis and hydroureter secondary to obstructing calculus in the distal left ureter 2. Bilateral renal calculi. 3. Left inguinal hernia. No change. Umbilical hernia. No change. 4. Low density lesions in the right kidney without change. 5. Small sliding hiatal hernia. Electronically signed by: Maia Stock On 09/01/2018 20:03:33 PM
[2018-09-01] MEDS ORDERED: METAL LOCK LOOP XX ONE (20:32)
[2018-09-01] MEDS ORDERED: ceFAZolin SOD 1 GM in D5W MINI-BAG PLUS 50 ML IV ONE (21:00)
[2018-09-01] MEDS ORDERED: ASPI1TAB20 PO (21:24)
[2018-09-01] MEDS ORDERED: D32000CA PO (21:24)
[2018-09-01] MEDS ORDERED: TORS10TA3 PO (21:24)
[2018-09-01] MEDS ORDERED: SPIR-10 PO (21:24)
[2018-09-01] MEDS ORDERED: VITMTA PO (21:24)
[2018-09-01] MEDS ORDERED: NAPR-885 PO (21:24)
[2018-09-01] MEDS ORDERED: MAALOX 30 ML SUSP *UDC PO PRN (22:00)
[2018-09-01] MEDS ORDERED: MOM 30ML SUSPENSION UDC PO PRN (22:00)
[2018-09-01] MEDS ORDERED: GLUCAGON FOR INJ 1 MG VIAL (J1610) SC PRN (22:00)
[2018-09-01] MEDS ORDERED: FIORICET TAB PO PRN (22:00)
[2018-09-01] MEDS ORDERED: DEXTROSE 50% 50 ML SYRINGE IV PRN (22:00)
[2018-09-01] MEDS ORDERED: GLUCOSE 4 GM CHEW TABLET PO PRN (22:00)
[2018-09-01] MEDS: LR 1,000 ML IV SCH (22:40)
[2018-09-01] MEDS: MORPHINE 4 MG/ML 1ML VIAL/SYRINGE (J2270) IV PRN (22:40)
--- NOTE | 2018-09-01 23:02 | HPEPDOC ---
General Date of Admission September 01, 2018 at 21:49 Chief Complaint The patient is a 58-year-old male admitted with a reason for visit of Left Uret eral Calculus. Source: Patient, RN/, Old records History of Present Illness Mr. Castillo is a 58 years old man who presents to Er with two day history of left back pain radiating to the left inguinal area. He denies fever, chills, abdominal pain, dysuria, nausea or vomiting. In the Er, pt was hemodynamically stable, afebrile. CT showed left obstructive urolithiasis (9.1 mm) with moderate left hydronephrosis, and bilateral nephrolithiasis. Labs were unremarkable. UA was consistent with microscopic hematuria. 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 Iyer was consulted from ER; he recommended Ancef, observation; will be seen by with Dr. Perez in the morning. Home Medications Scheduled Aspirin (Aspirin) 325 Mg Tablet, 325 MG PO DAILY, (Reported) Carvedilol (Carvedilol) 25 Mg Tab, 25 MG PO BID, (Reported) Cholecalciferol (Vitamin D3) (Vitamin D3) 2,000 Unit Capsule, 2,000 UNIT PO DAILY, (Reported) Cyanocobalamin (Vitamin B-12) (Vitamin B-12) 1,000 Mcg Tab, 1,000 MCG PO DAILY, (Reported) Docusate Sodium (Colace) 100 Mg Capsule, 100 MG PO BID, (Reported) Emtricitab/Rilpiviri/Tenof Ala (Odefsey Tablet) 1 Tab Tab, 1 TAB PO QHS, (Reported) Fluticasone Propionate (Flovent Hfa) 220 Mcg/Act Aer, 1 PUFF INH BID, (Reported) Multivitamins (Thera M Plus Tablet) 1 Each Tablet, 1 TAB PO DAILY, (Reported) Nortriptyline HCl (Nortriptyline HCl) 50 Mg Cap, 50 MG PO QHS, (Reported) Ranitidine HCl (Ranitidine HCl) 150 Mg Tab, 1 TAB PO BID, (Reported) Sacubitril/Valsartan (Entresto 97 mg-103 mg Tablet) 1 Each Tablet, 1 TAB PO BID, (Reported) Simvastatin (Simvastatin) 40 Mg Tab, 40 MG PO DAILY, (Reported) Spironolactone (Spironolactone) 25 Mg Tablet, 12.5 MG PO QHS, (Reported) Torsemide (Torsemide) 10 Mg Tablet, 10 MG PO Q2D, (Reported) Scheduled PRN Albuterol Sulfate (Ventolin Hfa) 18 Gm Hfa.aer.ad, 2 PUFF INH Q4H PRN for SOB/WHEEZING, (Reported) Butalb/Acetaminophen/Caffeine (Fioricet 50-300-40 mg Capsule) 1 Cap Cap, 1 CAP PO Q6H PRN for MIGRAINE, (Reported) Naproxen (Naproxen) 500 Mg Tablet, 500 MG PO BID PRN for PAIN, (Reported) Allergies Coded Allergies: benzalkonium chloride (Verified Allergy, Intermediate, severe eye swelling , 08/16/18) edetic acid (Verified Allergy, Intermediate, severe eye swelling , 08/16/18) lanolin (Verified Allergy, Intermediate, EYE SWELLING, 09/01/18) mineral oil (Verified Allergy, Intermediate, EYE SWELLING, 09/01/18) petrolatum,white (Verified Allergy, Intermediate, EYE SWELLING, 09/01/18) dextran sulfate (Verified Allergy, Unknown, severe eye swelling , 08/16/18) Uncoded Allergies: hydroxypropyle methylcellulose (Allergy, Intermediate, severe eye swelling , 08/16/18) Past Medical History Medical History Systolic CHF (EF 45%), AICD, Pacemaker, AF, HIV, COPD, migraines, B12 deficiency, CKD 3 Surgical History appendectomy, Archectomy, B/l hernia repair, right orchiectomy, b/l shoulder cuff surg, ocular surg. Family History Significant Family History: No pertinent family hx Social History * Smoker: former Smoker Alcohol: Denies Drugs: denies A-FIB/CHADSVASC A-FIB History Current/History of A-Fib/PAF?: Yes Current Oral Anticoagulant The: No (not recommended by pt's doctor as per pt) Review of Systems Constitutional: Denies: Chills, Fever, Malaise Eyes: Denies: Pain ENT: Denies: Head Aches Skin: Denies: Rash, Lesions Pulmonary: Denies: Dyspnea, Cough Cardiovascular: Denies: Chest Pain, Palpitations, Edema Gastrointestinal: Denies: Nausea, Vomiting, Abdominal Pain Genitourinary: Denies: Dysuria, Frequency, Hematuria Musculoskeletal: Reports: Back Pain; Denies: Neck Pain Neurological: Denies: Weakness, Numbness Psych: Reports: Mood Normal; Denies: Anxiety Physical Examination General Exam: Positive: Alert, Cooperative Eye Exam: Positive: PERRLA ENT Exam: Negative: Atraumatic Neck Exam: Positive: Supple; Negative: JVD Chest Exam: Positive: Clear to auscultation, Normal air movement Heart Exam: Positive: Rate Normal, Regular Rhythm; Negative: Murmurs Abdomen Exam: Positive: Normal bowel sounds, Soft; Negative: Tenderness Extremity Exam: Positive: Normal pulses; Negative: Edema, Swelling Skin Exam: Negative: Rash, Breakdown Neuro Exam: Positive: Normal Gait, Normal Speech, Strength at 5/5 X4 ext Psych Exam: Positive: Mental status NL, Mood NL, Oriented x 3 Vital Signs Vital Signs Date Time Temp Pulse Resp B/P (MAP) Pulse Ox O2 Delivery O2 Flow Rate FiO2 09/01/18 22:40 16 09/01/18 22:37 96.1 77 120/66 (84) 99 Room Air Laboratory Data Labs 24H Laboratory Tests 2 09/01/18 18:55: Immature Granulocyte % (Auto) 0.5, White Blood Count 7.8, Red Blood Count 4.08L, Hemoglobin 13.8, Hematocrit 41.7L, Mean Corpuscular Volume 102.2H, Mean Corpuscular Hemoglobin 33.8H, Mean Corpuscular Hemoglobin Concent 33.1, Red Cell Distribution Width 13.5, Platelet Count 222, Neutrophils (%) (Auto) 51.3, Lymphocytes (%) (Auto) 35.5, Monocytes (%) (Auto) 9.3H, Eosinophils (%) (Auto) 3.1H, Basophils (%) (Auto) 0.3, Neutrophils # (Auto) 4.0, Lymphocytes # (Auto) 2.8, Monocytes # (Auto) 0.7, Eosinophils # (Auto) 0.2, Basophils # (Auto) 0.0, Nucleated Red Blood Cells % (auto) 0.0, Anion Gap 6L, Glomerular Filtration Rate 48.2L, Lactic Acid Level 2.0, Calcium Level 9.2, Aspartate Amino Transf (AST/SGOT) 23, Alanine Aminotransferase (ALT/SGPT) 27, Alkaline Phosphatase 57, Total Bilirubin 0.2, Direct Bilirubin < 0.1, Total Protein 6.5, Albumin 3.8, Albumin/Globulin Ratio 1.41, Lipase 127 09/01/18 19:11: Urine Appearance CLEAR, Urine Color YELLOW, Urine pH 5.0, Urine Specific [place] 1.026, Urine Protein 1+H, Urine Glucose (UA) NEGATIVE, Urine Ketones TRACEH, Urine Urobilinogen 0.2, Urine Bilirubin NEGATIVE, Urine Leukocyte Esterase NEGATIVE, Urine Blood 2+H, Urine Nitrite NEGATIVE, Urine WBC (Auto) 6H, Urine RBC (Auto) TNTCH, Urine Hyaline Casts (Auto) 0, Urine Bacteria (Auto) NEGATIVE, Urine Squamous Epithelial Cells 0, Urine Mucus (Auto) SMALL, Urine Sperm (Auto) CBC/BMP Laboratory Tests 09/01/18 18:55 Red Blood Count 4.08 L, Mean Corpuscular Volume 102.2 H, Mean Corpuscular Hemoglobin 33.8 H, Mean Corpuscular Hemoglobin Concent 33.1, Red Cell Distribution Width 13.5, Neutrophils (%) (Auto) 51.3, Lymphocytes (%) (Auto) 35.5, Monocytes (%) (Auto) 9.3 H, Eosinophils (%) (Auto) 3.1 H, Basophils (%) (Auto) 0.3, Neutrophils # (Auto) 4.0, Lymphocytes # (Auto) 2.8, Monocytes # (Auto) 0.7, Eosinophils # (Auto) 0.2, Basophils # (Auto) 0.0 Assessment/Plan Obstructive Left Distal Urolithiasis with Moderate Left Hydronephrosis, and Bilateral Nephrolithiasis; Mild EFREN on CKD - Admit to inpatient; Urology has been consulted - Gentle IV Fluid, Ancef as recommended by Uro; pain tx; Flomax - Hold diuretic for now - I/O; daily wt Home meds for other chronic conditions described in PMH. Plan / VTE VTE Prophylaxis Ordered?: No VTE Exclusion Mechanical Proph: Low Risk for VTE VTE Exclusion Pharmacological: At Low Risk for VTE Plan Anticipated Discharge: Home BRIAN WOODARD MD September 01, 2018 23:02
[2018-09-01 23:55] VITALS: BP 138/70
[2018-09-02] VITALS (9 sets, daily range): BP systolic 104–136; BP diastolic 61–85
[2018-09-02] MEDS: HumaLOG INSULIN (NovoLOG) PER UNIT SC SCH ×3 (00:11→11:45)
[2018-09-02] MEDS: CARVedilol 12.5 MG TAB PO SCH ×3 (00:24→20:12)
[2018-09-02] MEDS: ENTRESTO 97-103MG TABLET (SACUBITRIL/VALSARTAN) PO SCH ×3 (00:24→20:11)
[2018-09-02] MEDS: FAMOTIDINE 20 MG TAB PO SCH ×3 (00:24→20:11)
[2018-09-02] MEDS: NORTRIPTYLINE 25 MG CAP PO SCH ×2 (00:24→20:11)
[2018-09-02] MEDS: DOCUSATE SODIUM 100 MG CAP PO SCH ×3 (00:25→20:12)
[2018-09-02] MEDS: TAMSULOSIN 0.4 MG CAP PO SCH ×3 (00:25→20:11)
[2018-09-02] MEDS: KETOROLAC 30 MG/ML VIAL (J1885) IV PRN ×4 (02:14→20:11)
[2018-09-02] MEDS: MORPHINE 4 MG/ML 1ML VIAL/SYRINGE (J2270) IV PRN ×2 (03:29→09:19)
[2018-09-02] MEDS: ceFAZolin SOD 1 GM in D5W MINI-BAG PLUS 50 ML IV SCH ×2 (04:40→13:07)
[2018-09-02] MEDS: ACETAMINOPHEN TAB 650MG DOSE (2X325MG) PO PRN ×2 (04:41→13:13)
--- NOTE | 2018-09-02 05:57 | ECGEPIP ---
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 Order Number: [id number] Reading MD: Bin Paez Measurements Intervals Sandy Rate: 71 P: 29 TN: 162 QRS: -16 QRSD: 102 T: 50 QT: 393 QTc: 429 Interpretive Statements SINUS RHYTHM NONSPECIFIC T-WAVE ABNORMALITY SIMILAR TO 08/16/18 Electronically Signed On 09-02-2018 5:57:45 EDT by Bin Paez
[2018-09-02 06:33] LABS: HEMATOCRIT 38.9 % (42.0-52.0); HEMOGLOBIN 12.7 g/dl (13.5-17.5); MEAN CORPUSCULAR HEMOGLOBIN 33.3 pg (27.0-33.0); MEAN CORPUSCULAR HGB CONC 32.6 g/dl (32.0-36.5); MEAN CORPUSCULAR VOLUME 102.1 fl (80.0-96.0); PLATELET COUNT, AUTOMATED 183 10^3/uL (150-450); RED BLOOD COUNT 3.81 10^6/uL (4.30-6.10); WHITE BLOOD COUNT 5.8 10^3/uL (4.0-10.0)
[2018-09-02 06:54] LABS: INR 0.9; PROTHROMBIN TIME 12.2 SECONDS (12.1-14.4)
[2018-09-02 06:55] LABS: PARTIAL THROMBOPLASTIN TIME 30.6 SECONDS (25.4-37.6)
[2018-09-02 06:58] LABS: ALBUMIN 3.1 GM/DL (3.2-5.2); BILIRUBIN,TOTAL 0.2 MG/DL (0.2-1.0); CALCIUM LEVEL 8.1 MG/DL (8.5-10.1); CREATININE FOR GFR 1.6 MG/DL (0.70-1.30); GLOMERULAR FILTRATION RATE 47.5 (>56); TOTAL PROTEIN 5.6 GM/DL (6.4-8.2)
[2018-09-02] MEDS: FLUTICASONE HFA 220 MCG 12 GM INHALER (FLOVENT) INH SCH ×3 (07:50→21:44)
[2018-09-02] MEDS: SIMVASTATIN 40 MG TAB PO SCH (08:13)
[2018-09-02] MEDS: ASPIRIN 325 MG TAB PO SCH (08:13)
--- NOTE | 2018-09-02 11:29 | IPNPDOC ---
Date Seen The patient was seen on 09/02/18. Progress Note SUBJECTIVE: Patient resting with some improvement of this pain. Patient to be evaluated by urology today. Otherwise patient denies of any complaints today. OBJECTIVE VITAL SIGNS: Please see below GENERAL APPEARANCE: Resting comfortably HEENT: Normocephalic, PERRLA, Mucous moist, CARDIOVASCULAR: S1,S2, pulse present, regularly, regular LUNGS: Equal air entry b/l, no wheezes or crackle ABDOMEN: Soft, BS present, no tenderness, no guarding EXTREMITIES: B/L no edema, capillary refill present SKIN: Warm, No fever NEUROLOGICAL: Cranial nerves grossly intact PSYCHIATRIC: Normal mood and affect for current situation LABORATORY DATA, IMAGING STUDIES, MICROBIOLOGY: Please see below. 58 years old man with PMH Systolic CHF (EF 45%), AICD, Pacemaker, AF, HIV, COPD, migraines, B12 deficiency, CKD 3 with back pain radiating to the left inguinal area found to have left obstructive urolithiasis (9.1 mm) with moderate left hydronephrosis, and bilateral nephrolithiasis. Obstructive Left Distal Urolithiasis with Moderate Left Hydronephrosis, and Bilateral Nephrolithiasis; Mild EFREN on CKD - Urology consulted: Dr. Perez - Gentle IV Fluid, Ancef as recommended by Uro - UA neg uti - pain tx - Flomax -CT abdomen:Moderate left-sided hydronephrosis and hydroureter secondary to obstructing calculus in the distal left ureter. Bilateral renal calculi. Left inguinal hernia. No change. Umbilical hernia. No change. Low density lesions in the right kidney without change. Small sliding hiatal hernia. ARF/CKD3 -treat above - Hold diuretic for now Hx systolic and diastolic CHF(EF 45% 08/29/18), AICD/PPM, - I/O; daily wt -asa, carvedilol, statin -Follows with Dr. Evans HIV -may take his own emtricitab/Rilpivir/tenof ala COPD -resume home regimen DVT per surgery VS, I&O, 24H, Fishbone Vital Signs/I&O Vital Signs Date Time Temp Pulse Resp B/P (MAP) Pulse Ox O2 Delivery O2 Flow Rate FiO2 09/02/18 09:30 18 09/02/18 08:14 63 104/62 09/02/18 06:00 98.5 94 09/01/18 22:37 Room Air I&O- Last 24 Hours up to 6 AM 09/02/18 06:00 Intake Total 1050 ml Output Total 100 ml Balance 950 ml Laboratory Data 24H LABS Laboratory Tests 2 09/01/18 18:55: Immature Granulocyte % (Auto) 0.5, White Blood Count 7.8, Red Blood Count 4.08L, Hemoglobin 13.8, Hematocrit 41.7L, Mean Corpuscular Volume 102.2H, Mean [place] uscular Hemoglobin 33.8H, Mean Corpuscular Hemoglobin Concent 33.1, Red Cell Distribution Width 13.5, Platelet Count 222, Neutrophils (%) (Auto) 51.3, Lymphocytes (%) (Auto) 35.5, Monocytes (%) (Auto) 9.3H, Eosinophils (%) (Auto) 3.1H, Basophils (%) (Auto) 0.3, Neutrophils # (Auto) 4.0, Lymphocytes # (Auto) 2.8, Monocytes # (Auto) 0.7, Eosinophils # (Auto) 0.2, Basophils # (Auto) 0.0, Nucleated Red Blood Cells % (auto) 0.0, Anion Gap 6L, Glomerular Filtration Rate 48.2L, Lactic Acid Level 2.0, Calcium Level 9.2, Aspartate Amino Transf (AST/SGOT) 23, Alanine Aminotransferase (ALT/SGPT) 27, Alkaline Phosphatase 57, Total Bilirubin 0.2, Direct Bilirubin < 0.1, Total Protein 6.5, Albumin 3.8, Al bumin/Globulin Ratio 1.41, Lipase 127 09/01/18 19:11: Urine Appearance CLEAR, Urine Color YELLOW, Urine pH 5.0, Urine Specific [place] 1.026, Urine Protein 1+H, Urine Glucose (UA) NEGATIVE, Urine Ketones TRACEH, Urine Urobilinogen 0.2, Urine Bilirubin NEGATIVE, Urine Leukocyte Esterase NEGATIVE, Urine Blood 2+H, Urine Nitrite NEGATIVE, Urine WBC (Auto) 6H, Urine RBC (Auto) TNTCH, Urine Hyaline Casts (Auto) 0, Urine Bacteria (Auto) NEGATIVE, Urine Squamous Epithelial Cells 0, Urine Mucus (Auto) SMALL, Urine Sperm (Auto) 09/01/18 23:45: Bedside Glucose (Misc Panel) 92 09/02/18 05:29: Bedside Glucose (Misc Panel) 98 09/02/18 06:18: Nucleated Red Blood Cells % (auto) 0.0, Anion Gap 4L, Glomerular Filtration Rate 47.5L, Blood Urea Nitrogen 19H, Creatinine 1.60H, Sodium Level 143, Potassium Level 4.0, Chloride Level 113H, Carbon Dioxide Level 26, Calcium Level 8.1L, Aspartate Amino Transf (AST/SGOT) 22, Alanine Aminotransferase (ALT/SGPT) 21, Alkaline Phosphatase 48, Total Bilirubin 0.2, Total Protein 5.6L, Albumin 3.1L, Albumin/Globulin Ratio 1.24 09/02/18 06:30: Prothrombin Time 12.2, Prothromb Time International Ratio 0.90, Activated Partial Thromboplast Time 30.6 CBC/BMP Laboratory Tests 09/01/18 18:55 Red Blood Count 4.08 L, Mean Corpuscular Volume 102.2 H, Mean Corpuscular Hemoglobin 33.8 H, Mean Corpuscular Hemoglobin Concent 33.1, Red Cell Distributi on Width 13.5, Neutrophils (%) (Auto) 51.3, Lymphocytes (%) (Auto) 35.5, Monocytes (%) (Auto) 9.3 H, Eosinophils (%) (Auto) 3.1 H, Basophils (%) (Auto) 0.3, Neutrophils # (Auto) 4.0, Lymphocytes # (Auto) 2.8, Monocytes # (Auto) 0.7, Eosinophils # (Auto) 0.2, Basophils # (Auto) 0.0 09/02/18 06:18 Red Blood Count 3.81 L, Mean Corpuscular Volume 102.1 H, Mean Corpuscular Hemogl obin 33.3 H, Mean Corpuscular Hemoglobin Concent 32.6, Red Cell Distribution Width 13.4, Calcium Level 8.1 L, Aspartate Amino Transf (AST/SGOT) 22, Alanine Aminotransferase (ALT/SGPT) 21, Alkaline Phosphatase 48, Total Bilirubin 0.2, Total Protein 5.6 L, Albumin 3.1 L CAITLIN TAFOYA MD September 02, 2018 11:29
[2018-09-02] MEDS ORDERED: LIDOCAINE 2% INJ 100 MG/5 ML SDV (FOR ANES.) As Ordered ONE (14:14)
[2018-09-02] MEDS ORDERED: dexameTHASONE 4 MG/ML 1ML VIAL (J1100) As Ordered ONE (14:14)
[2018-09-02] MEDS ORDERED: PROPOFOL 200 MG/20 ML VIAL As Ordered ONE ×2 (14:14→15:52)
[2018-09-02] MEDS ORDERED: ONDANSETRON 4MG/2ML VIAL (J2405) As Ordered ONE ×2 (14:14→16:47)
[2018-09-02] MEDS ORDERED: ROCURONIUM BROMIDE 50 MG/5 ML VIAL As Ordered ONE (14:21)
[2018-09-02] MEDS ORDERED: CONRAY-60 60% 50ML VIAL (Q9961) As Ordered ONE (15:03)
[2018-09-02] MEDS ORDERED: MIDAZOLAM INJ 2 MG/2 ML VIAL (J2250) As Ordered ONE (15:24)
[2018-09-02] MEDS ORDERED: fentaNYL 100 MCG/2 ML INJECTION (J3010) As Ordered ONE (15:25)
[2018-09-02] MEDS ORDERED: LIDOCAINE 2% 5ML JELLY UROJET As Ordered ONE (15:59)
[2018-09-02] MEDS ORDERED: KETAMINE HCL 200 MG/20 ML VIAL As Ordered ONE (16:05)
[2018-09-02] MEDS: NORCO, ANEXSIA 5/325MG TABLET (HYDROcodone/ACETAMINOPHEN) PO PRN ×2 (16:47→17:17)
[2018-09-02] MEDS ORDERED: NORCO, ANEXSIA 5/325MG TABLET (HYDROcodone/ACETAMINOPHEN) As Ordered ONE ×2 (16:47→17:16)
--- NOTE | 2018-09-02 17:08 | REP ---
RETROGRADE PYELOGRAM: HISTORY: Stent placement. Three radiographs were obtained with a C-ARM. Contrast material is present in the left renal collecting system and ureter. The patient is status-post left ureteral stent placement. Fluoroscopic time 53 seconds. IMPRESSION:Retrograde pyelogram as described above. Electronically Signed by Lucas Young MD 09/02/2018 05:25 P
[2018-09-02] MEDS ORDERED: D5W/0.9% SODIUM CHLORIDE 1,000 ML IV SCH (17:30)
[2018-09-02] MEDS ORDERED: ONDANSETRON 4MG/2ML VIAL (J2405) IV PRN (17:30)
[2018-09-02] MEDS ORDERED: LR 1,000 ML IV SCH (17:30)
[2018-09-02] MEDS: LR 1,000 ML IV SCH (17:51)
--- NOTE | 2018-09-02 20:02 | RO ---
DATE OF PROCEDURE: 09/02/2018 PREPROCEDURE DIAGNOSIS: Left ureteral stone with ureteral obstruction. POSTPROCEDURE DIAGNOSIS: Left ureteral stone with ureteral obstruction. PROCEDURE PERFORMED: Cystoscopy, left ureteral retrograde pyelogram with left ureteral stent placement. SURGEON: Akira Amato MD EMBOSSING TOOL SETTER: None. ANESTHESIA: Monitored anesthesia care (MAC). COMPLICATIONS: Zero. BLOOD LOSS: Minimal. DESCRIPTION OF PROCEDURE: Consents were obtained prior to procedure per standard protocol.The patient was brought into an surgical suite, given MAC anesthesia, prepped and draped in a standard fashion. After proper time-out was performed, A 21-Burkinan cystoscope was placed in the urethra . Once in the bladder, cystoscopy was performed. All bladder quadrants were inspected and no pathology was noted. Left ureteral orifice and right ureteral orifice were identified. A ureteral catheter was placed in the left ureteral orifice without difficulty. Left Retrograde pyelograms were performed. Noted that along the iliac vessels there was ureteral obstruction noted on the left side. A ureteral 0.38 wire was used to transverse the stone to enter into the renal pelvis. Pollack catheter was removed. Fluoroscopy (fluoro) was used throughout the ureteral procedures. Picture was taken with the stent up. A ureteral 6-Burkinan variable length ureteral stent was placed over the wire, entering into the renal pelvis with some difficulty; however, it was able to slide up. Once the stent coiled in the renal pelvis, mostly in the upper calices, the wire was removed. The ureteral stent was coiled in the bladder, bladder was drained. Bladder was reinspected and noted that the stent was draining properly. Bladder was drained, the cystoscope was removed, the patient was then awakened from anesthesia, was properly washed off, transferred to stretcher and then taken to recovery room. Plan is for the patient to be readmitted to his floor. Monitor overnight with the plan to be discharged to home tomorrow. Preprocedure orders were restarted, brief operative note was done. The was talked to and was given information regarding how the patient is doing, and the patient was made aware of the procedure as well once he was awakened from the anesthesia. JAY
[2018-09-03] MEDS: KETOROLAC 30 MG/ML VIAL (J1885) IV PRN ×2 (00:11→10:31)
[2018-09-03 02:00] VITALS: BP 126/63
[2018-09-03 06:00] VITALS: BP 116/71
[2018-09-03 06:04] LABS: HEMATOCRIT 36.7 % (42.0-52.0); HEMOGLOBIN 12.5 g/dl (13.5-17.5); MEAN CORPUSCULAR HEMOGLOBIN 32.7 pg (27.0-33.0); MEAN CORPUSCULAR HGB CONC 34.1 g/dl (32.0-36.5); MEAN CORPUSCULAR VOLUME 96.1 fl (80.0-96.0); PLATELET COUNT, AUTOMATED 217 10^3/uL (150-450); RED BLOOD COUNT 3.82 10^6/uL (4.30-6.10)
[2018-09-03 06:25] LABS: BLOOD UREA NITROGEN 14 MG/DL (7-18); CALCIUM LEVEL 8.6 MG/DL (8.5-10.1); CARBON DIOXIDE LEVEL 25 MEQ/L (21-32); CHLORIDE LEVEL 107 MEQ/L (98-107); CREATININE FOR GFR 1.03 MG/DL (0.70-1.30); GLOMERULAR FILTRATION RATE > 60.0 (>56); GLUCOSE, FASTING 108 MG/DL (70-100); POTASSIUM SERUM 4.5 MEQ/L (3.5-5.1); SODIUM LEVEL 138 MEQ/L (136-145)
[2018-09-03] MEDS: FLUTICASONE HFA 220 MCG 12 GM INHALER (FLOVENT) INH SCH (07:47)
[2018-09-03] MEDS: SIMVASTATIN 40 MG TAB PO SCH (08:00)
[2018-09-03] MEDS: ENTRESTO 97-103MG TABLET (SACUBITRIL/VALSARTAN) PO SCH (08:00)
[2018-09-03 08:01] VITALS: BP 116/71
[2018-09-03] MEDS: CARVedilol 12.5 MG TAB PO SCH (08:01)
[2018-09-03] MEDS: ASPIRIN 325 MG TAB PO SCH (08:01)
[2018-09-03] MEDS: DOCUSATE SODIUM 100 MG CAP PO SCH (08:01)
[2018-09-03] MEDS: TAMSULOSIN 0.4 MG CAP PO SCH (08:01)
[2018-09-03] MEDS: FAMOTIDINE 20 MG TAB PO SCH (08:01)
--- NOTE | 2018-09-03 11:55 | IPNPDOC ---
Subjective Review oF Systems Chief Complaint The patient is a 58-year-old male admitted with a reason for visit of Left Ureteral Calculus. General: Denies: ROS Unobtainable, Chills, Night Sweats, Fatigue, Malaise, Normal Appetite, Other Symptoms Constitutional: Denies: Fever, Chills, Sweats, Weakness, Malaise, Other Eyes: Denies: Pain, Vision change, Conjunctivae inflammation, Eyelid i nflammation, Redness, Other ENT: Denies: Head Aches, Ear Pain, Dysphagia, Sinus Congestion, Post Nasal Drip, Sore Throat, Epistaxis, Other Symptoms Skin: Denies: Rash, Lesions, Jaundice, Bruising, Itching, Dry, Breakdown, Nail Changes, Other Pulmonary: Denies: Dyspnea, Cough, Pleuritic Chest Pain, Other Symptoms Cardiovascular: Denies Chest Pain, Denies Palpitations, Denies Orthopnea, Denies Paroxysmal Noc. Dyspnea, Denies Edema, Denies Lt Headedness, Denies Other Symptoms Gastrointestinal: Denies: Nausea, Vomiting, Abdominal Pain, Diarrhea, Constipation, Melena, Hematochezia, Other Symptoms Genitourinary: Denies: Dysuria, Frequency, Incontinence, Hematuria, Retention, Other Symptoms Neurological: Denies: Weakness, Numbness, Incoordination, Change in Speech, Confusion, Seizures, Other Symptoms Objective Physical Examination Heart Exam: Positive: Rate Normal, Regular Rhythm; Negative: Murmurs ABDOMEN EXAM: No: Normal bowel sounds, BS Hyperactive, BS Hypoactive, Soft, Tenderness, Hepatospenomegaly, Mass, Hernia, Other Male Exam: No: Normal Genital Exam, Lesions, Edema, Erythema, Tenderness, Discharge, Mass, Hernia, Normal Prostate, Normal Sphincter Tone Extremity Exam: No: Clubbing, Cyanosis, Edema, Normal pulses, Tenderness, Swelling, Other Lymph Nodes: Normal: Left Neck, Right Neck, Left Axilla, Right Axilla, Left Groin, Right Groin, Left Supraclavicular, Right Supraclavicular Vital Signs/I&O Vital Signs Date Time Temp Pulse Resp B/P (MAP) Pulse Ox O2 Delivery O2 Flow Rate FiO2 09/03/18 08:01 87 116/71 09/03/18 06:00 97.8 18 97 09/02/18 16:47 2.0 09/01/18 22:37 Room Air I&O- Last 24 Hours up to 6 AM 09/03/18 06:00 Intake Total 2890 ml Output Total 3750 ml Balance -860 ml Laboratory Data Labs 24H Laboratory Tests 2 09/03/18 05:27: Nucleated Red Blood Cells % (auto) 0.0, Anion Gap 6L, Glomerular Filtration Rate > 60.0, Blood Urea Nitrogen 14, Creatinine 1.03, Sodium Level 138, Potassium Level 4.5, Chloride Level 107, Carbon Dioxide Level 25, Calcium Level 8.6 CBC/BMP Laboratory Tests 09/03/18 05:27 Red Blood Count 3.82 L, Mean Corpuscular Volume 96.1 H, Mean Corpuscular Hemogl obin 32.7, Mean Corpuscular Hemoglobin Concent 34.1, Red Cell Distribution Width 12.9, Calcium Level 8.6 A-FIB/CHADSVASC A-FIB History Current/History of A-Fib/PAF?: No Assessment/Plan Date Seen The patient was seen on 09/03/18. Patient Summary Patient is status post Left ureteral stent placement 09/02/18. He tolerated the procedure well. Complained of mild pain this morning. Ok for discharge from my perspective. Problems (1) Hydronephrosis, left Status: Acute Response to Treatment: Stable Discussed With: Other Discussed With: (with patient ) Urology Problem Text: Follow up with Dr. Perez next week (2) Left ureteral calculus Status: Acute Response to Treatment: Stable Discussed With: Other Discussed With: (With patient ) Urology Problem Text: Follow up with Dr. Perez next week Plan/VTE VTE Prophylaxis Ordered?: No VTE Exclusion Mechanical Proph: Low Risk for VTE VTE Exclusion Pharmacological: At Low Risk for VTE Plan Anticipated Discharge: Home QUITA MANTILLA MD September 03, 2018 11:55
[2018-09-03 14:00] VITALS: BP 102/59
--- NOTE | 2018-09-03 17:55 | DS.PDOC ---
Discharge Summary General Date of Admission September 01, 2018 at 21:49 Date of Discharge 09/03/18 Specialist/Consultants Involve: QUITA MANTILLA MD Discharge Summary PROCEDURES PERFORMED DURING STAY: [None]. ADMITTING DIAGNOSES: 1. Obstructing L. urolithiasis 2. EFREN on CKD 3. HIV 4. COPD 5. hx combine CHF DISCHARGE DIAGNOSES: 1. Obstructing L. urolithiasis 2. EFREN on CKD 3. HIV 4. COPD 5. hx combine CHF COMPLICATIONS/CHIEF COMPLAINT: Left Ureteral Calculus. HISTORY OF PRESENT ILLNESS: "Mr. Castillo is a 58 years old man who presents to Er with two day history of left back pain radiating to the left inguinal area. He denies fever, chills, abdominal pain, dysuria, nausea or vomiting. In the Er, pt was hemodynamically stable, afebrile. CT showed left obstructive urolithiasis (9.1 mm) with moderate left hydronephrosis, and bilateral nephrolithiasis. Labs were unremarkable. UA was consistent with microscopic hematuria." HOSPITAL COURSE: Patient is a 58-year-old male with past medical history of HIV, combine CHF and COPD presented to ER with complaints of 2 day history of back pain found to have a left obstructing urolithiasis with moderate hydronephrosis and nephrolithiasi s. He was admitted and evaluated by urology with subsequence surgical intervention and stent placement. Symptoms quickly resolved postop. To discharge patient home to follow up with PCP as well as urology as outpatient within 1 week. Patient currently denies any complaints and feels that he is ready to go back to work tomorrow. DISCHARGE MEDICATIONS: Please see below. ALLERGIES: Please see below. PHYSICAL EXAMINATION ON DISCHARGE: VITAL SIGNS: Please see below. General: No acute distress, Alert Eyes: Normal sclera, EOMI, MIRYAM HENT: Atraumatic, neck supple, moist mucous membranes Cardiovascular: Normal rate, normal rhythm. No murmurs appreciated. Pulmonary: Clear to auscultation b/l, no wheezing GI: Soft, nontender, nondistended Skin: Warm and dry Neuro: CN grossly intact. No focal deficits. Strengths equal b/l. Psych: oriented x 3 LABORATORY DATA: Please see below. IMAGING: CT Abdomen and pelvis- IMPRESSION: Moderate left-sided hydronephrosis and hydroureter secondary to obstructing calculus in the distal left ureter 2. Bilateral renal calculi. 3. Left inguinal hernia. No change. Umbilical hernia. No change. 4. Low density lesions in the right kidney without change. 5. Small sliding hiatal hernia. ACTIVITY: [As tolerated]. DIET: Regular diet DISCHARGE PLAN: f/u PCP and Urology within 1 week DISPOSITION: 01 Home, Self-Care. ITEMS TO FOLLOWUP ON ON OUTPATIENT: 1. None DISCHARGE CONDITION: [Stable]. TIME SPENT ON DISCHARGE: Greater than 30 minutes. Vital Signs/I&Os Vital Signs Date Time Temp Pulse Resp B/P (MAP) Pulse Ox O2 Delivery O2 Flow Rate FiO2 09/03/18 14:00 97.9 76 20 102/59 (73) 97 09/02/18 16:47 2.0 09/01/18 22:37 Room Air I&O- Last 24 Hours up to 6 AM 09/03/18 06:00 Intake Total 2890 ml Output Total 3750 ml Balance -860 ml Laboratory Data Labs 24H Laboratory Tests 2 09/03/18 05:27: Nucleated Red Blood Cells % (auto) 0.0, Anion Gap 6L, Glomerular Filtration Rate > 60.0, Blood Urea Nitrogen 14, Creatinine 1.03, Sodium Level 138, Potassium Level 4.5, Chloride Level 107, Carbon Dioxide Level 25, Calcium Level 8.6 CBC/BMP Laboratory Tests 09/03/18 05:27 Red Blood Count 3.82 L, Mean Corpuscular Volume 96.1 H, Mean Corpuscular Hemoglobin 32.7, Mean Corpuscular Hemoglobin Concent 34.1, Red Cell Distribution Width 12.9, Calcium Level 8.6 Discharge Medications Scheduled Aspirin (Aspirin) 325 Mg Tablet, 325 MG PO DAILY, (Reported) Carvedilol (Carvedilol) 25 Mg Tab, 25 MG PO BID, (Reported) Cholecalciferol (Vitamin D3) (Vitamin D3) 2,000 Unit Capsule, 2,000 UNIT PO DAILY, (Reported) Cyanocobalamin (Vitamin B-12) (Vitamin B-12) 1,000 Mcg Tab, 1,000 MCG PO DAILY, (Reported) Docusate Sodium (Colace) 100 Mg Capsule, 100 MG PO BID, (Reported) Emtricitab/Rilpiviri/Tenof Ala (Odefsey Tablet) 1 Tab Tab, 1 TAB PO QHS, (Reported) Fluticasone Propionate (Flovent Hfa) 220 Mcg/Act Aer, 1 PUFF INH BID, (Reported) Multivitamins (Thera M Plus Tablet) 1 Each Tablet, 1 TAB PO DAILY, (Reported) Nortriptyline HCl (Nortriptyline HCl) 50 Mg Cap, 50 MG PO QHS, (Reported) Ranitidine HCl (Ranitidine HCl) 150 Mg Tab, 1 TAB PO BID, (Reported) Sacubitril/Valsartan (Entresto 97 mg-103 mg Tablet) 1 Each Tablet, 1 TAB PO BID, (Reported) Simvastatin (Simvastatin) 40 Mg Tab, 40 MG PO DAILY, (Reported) Spironolactone (Spironolactone) 25 Mg Tablet, 12.5 MG PO QHS, (Reported) Torsemide (Torsemide) 10 Mg Tablet, 10 MG PO Q2D, (Reported) Scheduled PRN Albuterol Sulfate (Ventolin Hfa) 18 Gm Hfa.aer.ad, 2 PUFF INH Q4H PRN for SOB/ WHEEZING, (Reported) Butalb/Acetaminophen/Caffeine (Fioricet 50-300-40 mg Capsule) 1 Cap Cap, 1 CAP PO Q6H PRN for MIGRAINE, (Reported) Naproxen (Naproxen) 500 Mg Tablet, 500 MG PO BID PRN for PAIN, (Reported) Allergies Coded Allergies: benzalkonium chloride (Verified Allergy, Intermediate, severe eye swelling , 08/16/18) edetic acid (Verified Allergy, Intermediate, severe eye swelling , 08/16/18) lanolin (Verified Allergy, Intermediate, EYE SWELLING, 09/01/18) mineral oil (Verified Allergy, Intermediate, EYE SWELLING, 09/01/18) petrolatum,white (Verified Allergy, Intermediate, EYE SWELLING, 09/01/18) dextran sulfate (Verified Allergy, Unknown, severe eye swelling , 08/16/18) Uncoded Allergies: hydroxypropyle methylcellulose (Allergy, Intermediate, severe eye swelling , 08/16/18) SENG NOEL MD September 03, 2018 17:55
== END 2018-09-03 14:25 | disposition home or self-care (01) | DRG 465 ==
LOC: M ED 18:09 → M ED INP 21:49 → M MSPAV 23:50
PROVIDERS: ADMIT Internal Medicine; ATTEND Student in an Organized Health Care Education/Training Program
PROC: 0T777DZ Dilation of Left Ureter with Intraluminal Device, Via Natural or Artificial Opening (ICD-10-PCS; principal; 2018-09-02 15:00)
DX: N13.2 Hydronephrosis with renal and ureteral calculous obstruction (principal); Z79.899 Other long term (current) drug therapy; Z88.8 Allergy status to other drugs, medicaments and biological substances; Z95.0 Presence of cardiac pacemaker; J44.9 Chronic obstructive pulmonary disease, unspecified; G43.909 Migraine, unspecified, not intractable, without status migrainosus; E53.8 Deficiency of other specified B group vitamins; N18.3 Chronic kidney disease, stage 3 (moderate); I50.22 Chronic systolic (congestive) heart failure; I48.91 Unspecified atrial fibrillation

== ENCOUNTER → 2018-09-11 | Outpatient (REF) | payer OTHER ==
[~2018-09-11] MED LIST changes: +CEFD300CAP PO; +D32000CA PO; +IBUP-1092 PO; +IBUP200C25 PO; +MUCI600T31 PO; +NAPR-885 PO; +SPIR-10 PO; +VITMTA PO
[2018-09-11 18:33] LABS: APPEARANCE, URINE CLOUDY (CLEAR); BACTERIA, URINE AUTO NEGATIVE (NEGATIVE); BILIRUBIN, URINE AUTO NEGATIVE (NEGATIVE); BLOOD, URINE BLOOD 3+ (NEGATIVE); COLOR, URINE AMBER (YELLOW); GLUCOSE, URINE (UA) AUTO NEGATIVE (NEGATIVE); KETONE, URINE AUTO 1+ mg/dL (NEGATIVE); LEUKOCYTE ESTERASE, URINE AUTO 3+ (NEGATIVE); MUCUS, URINE SMALL (NEGATIVE); NITRITE, URINE AUTO NEGATIVE (NEGATIVE); PROTEIN, URINE AUTO 3+ mg/dL (NEGATIVE); RBC, URINE AUTO TNTC /HPF (0-3); SPECIFIC GRAVITY URINE AUTO 1.029 (1.002-1.035); SQUAMOUS EPITHELIAL CELL UR AU 0 /HPF (0-6); UROBILINOGEN, URINE AUTO 0.2 mg/dL (0.0-2.0); WBC, URINE AUTO 34 /HPF (0-3)
== END ==
LOC: M SMT 17:18
PROVIDERS: ATTEND Nurse Practitioner Women's Health
DX: Z01.812 Encounter for preprocedural laboratory examination (principal); N13.2 Hydronephrosis with renal and ureteral calculous obstruction

== ENCOUNTER 2018-09-16 23:39 | Inpatient (IN) | payer OTHER ==
[~2018-09-16] VITALS: Ht 162.6 cm; Wt 64.0 kg
[~2018-09-16 23:39] MED LIST changes: -CEFD300CAP PO; -IBUP-1092 PO; -IBUP200C25 PO; -MUCI600T31 PO
[2018-09-16] MEDS ORDERED: IBUP200C25 PO (23:54)
[2018-09-17 01:45] LABS: BASO # 0.1 10^3/uL (0.0-0.2); BASO % 0.3 % (0.0-1.0); EOS # 0.1 10^3/uL (0.0-0.50); EOS % 0.7 % (0.0-3.0); HEMATOCRIT 39.1 % (42.0-52.0); HEMOGLOBIN 13.4 g/dl (13.5-17.5); LYMPH # 2.5 10^3/uL (1.5-4.5); LYMPH % 16.4 % (24.0-44.0); MEAN CORPUSCULAR HEMOGLOBIN 33.3 pg (27.0-33.0); MEAN CORPUSCULAR HGB CONC 34.3 g/dl (32.0-36.5); MONO # 1.5 10^3/uL (0.0-0.8); MONO % 10.1 % (0.0-5.0); NEUTROPHILS % 72.1 % (36.0-66.0); PLATELET COUNT, AUTOMATED 243 10^3/uL (150-450); RED BLOOD COUNT 4.03 10^6/uL (4.30-6.10); WHITE BLOOD COUNT 15.3 10^3/uL (4.0-10.0)
[2018-09-17] MEDS ORDERED: PIPERACILLIN/TAZOBACTAM SOD 3.375 GM in D5W MINI-BAG PLUS 50 ML IV ONE (02:00)
[2018-09-17 02:14] LABS: ALBUMIN 3.5 GM/DL (3.2-5.2); ALT/SGPT 23 U/L (12-78); BILIRUBIN,DIRECT < 0.1 MG/DL (0.0-0.2); BILIRUBIN,TOTAL 0.4 MG/DL (0.2-1.0); BLOOD UREA NITROGEN 18 MG/DL (7-18); CARBON DIOXIDE LEVEL 27 MEQ/L (21-32); CHLORIDE LEVEL 106 MEQ/L (98-107); CK-MB VALUE MASS < 1.0 NG/ML (<3.6); CPK CREATINE PHOSPHOKINASE 96 U/L (39-308); CREATININE FOR GFR 1.17 MG/DL (0.70-1.30); FREE T4 1.05 NG/DL (0.76-1.46); GLOMERULAR FILTRATION RATE > 60.0 (>56); GLUCOSE, FASTING 114 MG/DL (70-100); MB/CK RELATIVE INDEX 1.04 (< OR =4); NT-PRO BNP 51 PG/ML (<125); POTASSIUM SERUM 3.6 MEQ/L (3.5-5.1); SODIUM LEVEL 140 MEQ/L (136-145); THYROID STIMULATING HORMONE 0.756 uIU/ML (0.358-3.740); THYROXINE (T4) 11.4 UG/DL (4.5-12.0); TOTAL PROTEIN 6.3 GM/DL (6.4-8.2); TROPONIN I < 0.02 NG/ML (< 0.10)
[2018-09-17] MEDS ORDERED: ISOVUE-370 76% 100ML VIAL (Q9967) As Ordered ONE (02:45)
[2018-09-17] MEDS ORDERED: DILUENT IV ONE (03:00)
[2018-09-17] MEDS ORDERED: NS IV ONE (03:00)
--- NOTE | 2018-09-17 03:16 | REPVR ---
EXAM: CT Chest With Contrast EXAM DATE/TIME: 09/17/2018 2:39 AM CLINICAL HISTORY: 58 years old, male; Signs and symptoms; Shortness of breath; Additional info: Sirs/sepsis TECHNIQUE: Imaging protocol: Axial computed tomography images of the chest with intravenous contrast. Coronal and sagittal reformatted images were created and reviewed. Radiation optimization: All CT scans at this facility use at least one of these dose optimization techniques: automated exposure control; mA and/or kV adjustment per patient size (includes targeted exams where dose is matched to clinical indication); or iterative reconstruction. Contrast material: ISO; Contrast volume: 100 ml; Contrast route: AC; COMPARISON: CT Chest without contrast 01/21/2018 1:02 PM FINDINGS: HEART AND VASCULATURE: Cardiothoracic ratio is within normal limits. Pacemaker leads seen terminating in the right heart. No pericardial effusion. There is some calcification at the origin of the left main coronary artery. No thoracic aortic aneurysm or dissection. Visualized proximal great vessels within the superior mediastinum are preserved. This study is not optimized for assessment of pulmonary emboli, however no central filling defects are seen to the segmental levels bilaterally. The diameter of the main pulmonary trunk is 3 cm. MEDIASTINUM: No mediastinal gas. The visualized thyroid gland is within normal limits. No mediastinal hematoma. Trace amount of simple appearing fluid noted within the pericardial recesses. Small mediastinal and hilar lymph nodes are seen. No lymphadenopathy by size criteria. No periesophageal gas or fluid. LUNGS: The lungs are symmetric in expansion. There is no consolidation, pneumothorax or pleural effusion. Mild dependent atelectasis. A few scattered subpleural reticular opacities are noted at the lung bases which may be secondary to atelectasis and/or pulmonary parenchymal scarring. No suspicious pulmonary parenchymal mass. There is mild lower lobe bronchiectasis. No peribronchial thickening. UPPER ABDOMEN: Please refer to same day CT abdomen report for complete findings. MSK AND BODY WALL: A left chest wall pacemaker is noted. No acute fracture or suspicious bone lesion. IMPRESSION: Mild atelectasis. Other incidental and non-emergent findings discussed above. Electronically signed by: Kaushik Fonseca On 09/17/2018 03:15:39 AM
--- NOTE | 2018-09-17 03:26 | REPVR ---
EXAM: CT Abdomen and Pelvis With Contrast EXAM DATE/TIME: 09/17/2018 2:39 AM CLINICAL HISTORY: 58 years old, male; Abdominal pain; Generalized; Additional info: Sirs/sepsis TECHNIQUE: Imaging protocol: Axial computed tomography images of the abdomen and pelvis with intravenous contrast. Coronal and sagittal reformatted images were created and reviewed. Radiation optimization: All CT scans at this facility use at least one of these dose optimization techniques: automated exposure control; mA and/or kV adjustment per patient size (includes targeted exams where dose is matched to clinical indication); or iterative reconstruction. Contrast material: ISO; Contrast volume: 100 ml; Contrast route: AC; COMPARISON: CT ABD PELVIS W/O CONTRAST 09/01/2018 6:56 PM FINDINGS: LUNG BASES: Please refer to same day CT chest report for complete findings. VASCULAR: No abdominal aortic aneurysm, dissection, or retroperitoneal hematoma. There is calcified and noncalcified aortoiliac atherosclerosis. PERITONEAL : No free air or free fluid. GI: No hiatal hernia. The stomach contains some fluid, ingested material and gas. The stomach is not sufficiently distended to evaluate wall thickening or exclude focal thickening. No perigastric or periduodenal inflammatory stranding is seen. Nonspecific fluid-filled loops of small bowel are seen within the abdomen and pelvis. No significant asymmetric distention to suggest obstruction. A few small bowel folds in the left mid abdomen appear slightly prominant. This could be artifact secondary to insufficient distention. Mild gastroenteritis may be a possibility which could be correlated clinically with the patient's symptoms. Scattered fecal material and gas within portions of the colon and rectum. No pericolonic inflammatory stranding. No evidence of acute diverticulitis. The appendix is not visualized. No secondary inflammation is seen at the cecal apex. HEPATOBILIARY, PANCREAS, SPLEEN: The liver is not enlarged. There is slight heterogeneity of hepatic parenchyma. This could be secondary to the arterial phase of imaging. There is a small area of hypoenhancement within the liver, adjacent to the falciform ligament, likely focal fatty infiltration. Partially contracted gallbladder. No calcified gallstones or biliary dilation. No pancreatic inflammation. Spleen not enlarged. ADRENALS, KIDNEYS, BLADDER, RETROPERITONEAL: Adrenals within normal limits. No hydronephrosis. Symmetric renal enhancement. There is no perinephric fluid. There is an intraureteral catheter with the proximal pigtail in the upper pole of the left kidney and the distal pigtail within the proximal urinary bladder. There is a 4.9 mm intraureteral calculus adjacent to the catheter just distal to the level of the iliac vessel crossing. Punctate nonobstructing right upper pole renal calculus. Hypodense right renal lesions, consistent with cysts. The urinary bladder appears slightly thickwalled. This could be artifact secondary to under distention but mild cystitis may be a possibility. If indicated, correlation with urinalysis and culture. The prostate minimally impresses on the base of the bladder. Prostate calcifications are noted. MUSCULOSKELETAL: Small non-inflamed fat containing umbilical hernia. No acute fracture or suspicious bone lesion. IMPRESSION: No free air, free fluid or focal mesenteric inflammation. Nonspecific gastrointestinal findings as discussed above, could be correlated with any symptoms. Slight thick walled appearance of the urinary bladder could be correlated with urinalysis/culture if mild cystitis may be a possibility. Other findings discussed above. Electronically signed by: Kaushik Fonseca On 09/17/2018 03:26:06 AM
[2018-09-17] MEDS ORDERED: IBUP-1092 PO (04:44)
[2018-09-17] MEDS ORDERED: ACETAMINOPHEN TAB 650MG DOSE (2X325MG) PO PRN (05:45)
[2018-09-17] MEDS ORDERED: ENTER DRUG NAME HERE (PATIENT'S OWN MED) PO SCH (05:45)
[2018-09-17] MEDS ORDERED: FIORICET TAB PO PRN (05:45)
[2018-09-17] MEDS ORDERED: IPRATROPIUM 0.5MG/ALBUTEROL 2.5MG INH SOL UD 3ML (DUONEB)(J7620) NEB PRN (05:45)
[2018-09-17] MEDS ORDERED: ENOXAPARIN 40 MG/0.4 ML SYRINGE (J1650) SC ONE (06:00)
[2018-09-17] MEDS: MEROPENEM INJ 1 GM in APPROPRIATE DILUENT 1 EA IV SCH ×3 (06:14→21:44)
--- NOTE | 2018-09-17 06:48 | HPEPDOC ---
General Date of Admission 09/17/2018 Date of Service: September 17, 2018 Primary Care Physician: Jr Stanford Collins Attending Physician: SOHA MOE MD Chief Complaint The patient is a 58-year-old male admitted with a reason for visit of Sob, Elevated Hr. Source: Patient, Old records Exam Limitations: No limitations Associated Symptoms: Cough History of Present Illness Mr. Castillo is a 58-year-old male who presents to [facility] Department with difficulty breathing. Patient states that he is having difficulty breathing with nasal congestion and cough with green sputum production with a fever of 101.8 recorded at home. His throat is sore from coughing. He states that he has been alternating between cold chills and feeling hot. He denies chest pain, sick contacts, peripheral edema. Admits to orthopnea and PND. He continues to experience lower pelvic discomfort with burning urination towards the end of his stream. He was most recently admitted from 09/01/18 - 09/03/18 for left sided obstructing urolithiasis. He was evaluated at that time by urology with a urinary stent placed. He says that the symptoms he was experiencing during that admission have greatly improved, but he is still having some lingering discomfort. Hospitalist service was consulted and patient was admitted for further medical management. Home Medications Scheduled Aspirin (Aspirin) 325 Mg Tablet, 325 MG PO DAILY, (Reported) Carvedilol (Carvedilol) 25 Mg Tab, 25 MG PO BID, (Reported) Cholecalciferol (Vitamin D3) (Vitamin D3) 2,000 Unit Capsule, 2,000 UNIT PO DAILY, (Reported) Cyanocobalamin (Vitamin B-12) (Vitamin B-12) 1,000 Mcg Tab, 1,000 MCG PO DAILY, (Reported) Docusate Sodium (Colace) 100 Mg Capsule, 100 MG PO BID, (Reported) Emtricitab/Rilpiviri/Tenof Ala (Odefsey Tablet) 1 Tab Tab, 1 TAB PO QHS, (Reported) Fluticasone Propionate (Flovent Hfa) 220 Mcg/Act Aer, 1 PUFF INH BID, (Reported) Multivitamins (Thera M Plus Tablet) 1 Each Tablet, 1 TAB PO DAILY, (Reported) Nortriptyline HCl (Nortriptyline HCl) 50 Mg Cap, 50 MG PO QHS, (Reported) Ranitidine HCl (Ranitidine HCl) 150 Mg Tab, 1 TAB PO BID, (Reported) Sacubitril/Valsartan (Entresto 97 mg-103 mg Tablet) 1 Each Tablet, 1 TAB PO BID, (Reported) Simvastatin (Simvastatin) 40 Mg Tab, 40 MG PO DAILY, (Reported) Spironolactone (Spironolactone) 25 Mg Tablet, 12.5 MG PO QHS, (Reported) Torsemide (Torsemide) 10 Mg Tablet, 10 MG PO Q2D, (Reported) Scheduled PRN Albuterol Sulfate (Ventolin Hfa) 18 Gm Hfa.aer.ad, 2 PUFF INH Q4H PRN for SOB/WHEEZING, (Reported) Butalb/Acetaminophen/Caffeine (Fioricet 50-300-40 mg Capsule) 1 Cap Cap, 1 CAP PO Q6H PRN for MIGRAINE, (Reported) Ibuprofen (Ibuprofen) 200 Mg Tablet, 400 MG PO Q6H PRN for PAIN, (Reported) Allergies Coded Allergies: benzalkonium chloride (Verified Allergy, Intermediate, severe eye swelling , 09/17/18) edetic acid (Verified Allergy, Intermediate, severe eye swelling , 09/17/18) lanolin (Verified Allergy, Intermediate, EYE SWELLING, 09/17/18) mineral oil (Verified Allergy, Intermediate, EYE SWELLING, 09/17/18) petrolatum,white (Verified Allergy, Intermediate, EYE SWELLING, 09/17/18) dextran sulfate (Verified Allergy, Unknown, severe eye swelling , 09/17/18) methylcellulose (Verified Adverse Reaction, Severe, HYDROXYPROPYL=SEVERE EYE SWELLING, 09/17/18) Past Medical History Medical History 1. HIV 2. COPD 3. Systolic CHF with EF 45% 4. AICD with dual chamber pacemaker 5. Obstructing left sided urolithiasis 6. CAD 7. HTN 8. Allergies 9. DLP 10. Migraines 11. CKD-III Surgical History 1. Appendectomy 2. Ileocecal valve biopsy 3. B/L conjunctival biopsies 4. Right biceps tendon excision 5. Archectomy 6. B/L hernia repair 7. Right orchiectomy 8. B/L shoulder cuff surgery 9. Cystoscopy with left ureteral retrograde pyelogram with left ureteral stent Family History Father: , 53, CAD/DE Mother: , 53, cerebral aneurysm Social History * Smoker: former Smoker (82 pack year history, quit 1.5 years ago) Alcohol: Denies Drugs: denies Pets in the home: Dog(s) (Lab mix, Monse) Patient lives with for 14 years, 7 of which have been as couple. 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 Has one dog in the home, a lab-mix named Monse. He is a former smoker with an 82 pack year history having quit 1.5 years ago. Does not drink EtOH or use illicit drugs. A-FIB/CHADSVASC A-FIB History Current/History of A-Fib/PAF?: No Review of Systems Constitutional: Reports: Chills, Fever, Night Sweats; Denies: Malaise, Weakness, Fatigue Eyes: Denies: Pain, Vision change, Conjunctivae inflammation, Eyelid inflammation ENT: Reports: Sinus Congestion, Sore Throat; Denies: Head Aches, Ear Pain, Dysphagia, Post Nasal Drip, Epistaxis Skin: Denies: Rash, Lesions, Jaundice Pulmonary: Reports: Dyspnea, Cough; Denies: Pleuritic Chest Pain Cardiovascular: Reports: Orthopnea, Paroxysmal Noc. Dyspnea; Denies: Chest Pain, Palpitations, Edema, Lt Headedness Gastrointestinal: Denies: Nausea, Vomiting, Abdominal Pain, Diarrhea, Constipation, Melena, Hematochezia Genitourinary: Reports: Dysuria; Denies: Frequency, Incontinence Hematologic: Denies: Bruising, Bleeding Excessively Endocrine: Denies: Polydipsia, Polyphagia Musculoskeletal: Denies: Neck Pain, Back Pain, Joint Pain, Muscle Pain Neurological: Denies: Weakness, Numbness Physical Examination General Exam: Positive: Alert, Cooperative, No Acute Distress Eye Exam: Positive: PERRLA, Conjunctiva & lids normal, EOMI; Negative: Sclera icteric ENT Exam: Positive: Atraumatic, Mucous membr. moist/pink, Pharynx Normal, Tongue Midline, Nares Patent; Negative: Pharyngeal Edema Neck Exam: Positive: Supple, +2 carotid pulse wo bruit; Negative: JVD, thyromegaly, Lymphadenopathy Chest Exam: Positive: Rales, Diminished; Negative: Clear to auscultation, Normal air movement, Rhonchi, Wheezing Heart Exam: Positive: Tachycardic, Regular Rhythm, Normal S1, Normal S2; Negative: Gallops, Murmurs, Rubs Telemetry: Positive: Tachycardia Abdomen Exam: Positive: BS Hypoactive, Other (healed abdominal surgical incisions); Negative: Soft (guarding midline lower abdomen), Tenderness, Hepatospenomegaly, Mass, Hernia Extremity Exam: Negative: Clubbing, Cyanosis, Edema, Normal pulses (tachycardic), Tenderness Skin Exam: Negative: Rash, Lesion Neuro Exam: Positive: Normal Speech, Cranial Nerves 3-12 NL Psych Exam: Positive: Oriented x 3 Vital Signs Vital Signs Date Time Temp Pulse Resp B/P (MAP) Pulse Ox O2 Delivery O2 Flow Rate FiO2 09/17/18 05:45 101 18 98/55 (69) 98 Room Air 09/17/18 03:04 97.0 Height (in): 64 Weight (kg): 59.09 BMI (kg): 22.4 Laboratory Data Labs 24H Laboratory Tests 2 09/17/18 01:31: Urine Color YELLOW, Urine Appearance HAZY, Urine pH 5.0, Urine Specific [place] 1.009, Urine Protein 1+H, Urine Glucose (UA) NEGATIVE, Urine Ketones NEGATIVE, Urine Blood 3+H, Urine Nitrite NEGATIVE, Urine Bilirubin NEGATIVE, Urine Urobilinogen 0.2, Urine Leukocyte Esterase 2+H, Urine WBC (Auto) 24H, Urine RBC (Auto) 110H, Urine Hyaline Casts (Auto) 0, Urine Bacteria (Auto) 1+H, Urine Squamous Epithelial Cells 0, Urine Calcium Oxalate Cryst (Auto) SMALL, Urine Mucus (Auto) SMALL, Urine Sperm (Auto) 09/17/18 01:33: Immature Granulocyte % (Auto) 0.4, White Blood Count 15.3H, Red Blood Count 4.03L, Hemoglobin 13.4L, Hematocrit 39.1L, Mean Corpuscular Volume 97.0H, Mean Corpuscular Hemoglobin 33.3H, Mean Corpuscular Hemoglobin Concent 34.3, Red Cell Distribution Width 13.2, Platelet Count 243, Neutrophils (%) (Auto) 72.1H, Lymphocytes (%) (Auto) 16.4L, Monocytes (%) (Auto) 10.1H, Eosinophils (%) (Auto) 0.7, Basophils (%) (Auto) 0.3, Neutrophils # (Auto) 11.0H, Lymphocytes # (Auto) 2.5, Monocytes # (Auto) 1.5H, Eosinophils # (Auto) 0.1, Basophils # (Auto) 0.1, Nucleated Red Blood Cells % (auto) 0.0, Anion Gap 7L, Glomerular Filtration Rate > 60.0, Lactic Acid Level 1.3, Calcium Level 9.0, Aspartate Amino Transf (AST/SGOT) 14, Alanine Aminotransferase (ALT/SGPT) 23, Alkaline Phosphatase 66, Total Bilirubin 0.4, Direct Bilirubin < 0.1, Total Creatine Kinase 96, Creatine Kinase MB < 1.0, Creatine Kinase MB Relative Index 1.04, Troponin I < 0.02, WO-Qul-R-Type Natriuretic Peptide 51, Total Protein 6.3L, Albumin 3.5, Albumin/Globulin Ratio 1.25, Thyroid Stimulating Hormone (TSH) 0.756, Free Thyroxine 1.05, Thyroxine (T4) 11.4 CBC/BMP Laboratory Tests 09/17/18 01:33 Red Blood Count 4.03 L, Mean Corpuscular Volume 97.0 H, Mean Corpuscular Hemoglobin 33.3 H, Mean Corpuscular Hemoglobin Concent 34.3, Red Cell Dist ribution Width 13.2, Neutrophils (%) (Auto) 72.1 H, Lymphocytes (%) (Auto) 16.4 L, Monocytes (%) (Auto) 10.1 H, Eosinophils (%) (Auto) 0.7, Basophils (%) (Auto) 0.3, Neutrophils # (Auto) 11.0 H, Lymphocytes # (Auto) 2.5, Monocytes # (Auto) 1.5 H, Eosinophils # (Auto) 0.1, Basophils # (Auto) 0.1 Microbiology Microbiology 09/17/18 Blood Culture, Received Pending 09/17/18 Blood Culture, Received Pending 09/17/18 Respiratory Virus Panel (PCR) (BETTY) - Final, Complete 09/17/18 Gram Stain, Received Pending 09/17/18 Sputum Culture, Received Pending 09/17/18 Urine Culture, Received Pending Plan / VTE VTE Prophylaxis Ordered?: Yes (Lovenox 40mg SQ daily) Plan Plan 1. Sepsis - Leukocytosis, hypotension, fever with possible source of infection being renal or pulmonary. Received sepsis fluid resuscitation. Meropenem 1g IV Q8H. Recent hospitalization risk for hospital acquired infections. Tylenol as needed. Blood cultures. Entresto, Torsemide, and Spironolactone on hold. 2. COPD exacerbation - CXR obtained revealing possible increased interstitial markings, but no definite consolidations. Douneb's scheduled and as needed. Oxygen titration 88-92%. Tessalon Perles. Mucinex. Continue Flovent. Respiratory panel negative. Sputum culture and gram stain ordered. Blood cultures ordered. 3. UTI with nephrolithiasis - Meropenem 1g IV Q8H. Consider discussing with urology as out-patient recommendation is for follow up cystoscopy with lithotripsy. Urine culture ordered. 4. Systolic CHF with EF 45%, compensated - Holding Entresto, Spironolactone, and Torsemide due to HoTN. Continue Carvedilol. 5. CAD - Continue ASA. 6. CKD-III - Holding Torsemide and Spironolactone due to HoTN. 7. GERD - Continue Pepcid. 8. Migraines - Continue Fioricet. 9. HIV - Patient will bring in home medication. 10. DLP - Continue Simvastatin. 11. Depression/insomnia - Continue Nortriptyline. Disposition Admit: Anticipated hospitalization: Attending: Diet: Continue Current Activity: Continue Current Medications: Start Antibiotics Diagnostics: Check Labs, Repeat Labs in AM, Obtain Cultures Anticipated Discharge: Home ALESSIO SOLIS DO September 17, 2018 06:48
[2018-09-17] MEDS: ALBUTEROL SULFATE 2.5 MG/0.5 ML INH NEB SOLN NEB SCH ×3 (07:15→20:00)
[2018-09-17] MEDS: FLUTICASONE HFA 220 MCG 12 GM INHALER (FLOVENT) INH SCH ×2 (07:15→20:36)
[2018-09-17] MEDS ORDERED: IPRATROPIUM 0.5MG/ALBUTEROL 2.5MG INH SOL UD 3ML (DUONEB)(J7620) NEB SCH (08:00)
--- NOTE | 2018-09-17 08:14 | REP ---
Chest x-ray: Two views. History: Cough and fever. Comparison study: August 16, 2018. Findings: A bipolar pacemaker remains in the right heart via the left side. The lungs are well inflated and clear. The pleural angles are sharp. Heart size is normal. Pulmonary vasculature is not increased. There is an orthopedic anchor in the proximal humerus on the right side. No other significant bony abnormality. Impression: Bipolar pacemaker. Otherwise no acute disease. Electronically Signed by Gerson Cotto MD 09/17/2018 08:05 A
[2018-09-17] MEDS ORDERED: ENTRESTO 97-103MG TABLET (SACUBITRIL/VALSARTAN) PO SCH (09:00)
[2018-09-17] MEDS ORDERED: CARVedilol 12.5 MG TAB PO SCH (09:00)
[2018-09-17 09:25] VITALS: BP 106/66
[2018-09-17 09:55] LABS: HEMATOCRIT 35.3 % (42.0-52.0); MEAN CORPUSCULAR HEMOGLOBIN 32.9 pg (27.0-33.0); MEAN CORPUSCULAR VOLUME 96.7 fl (80.0-96.0); PLATELET COUNT, AUTOMATED 221 10^3/uL (150-450); RED BLOOD COUNT 3.65 10^6/uL (4.30-6.10); WHITE BLOOD COUNT 13.4 10^3/uL (4.0-10.0)
[2018-09-17] MEDS: ASPIRIN 325 MG TAB PO SCH (10:00)
[2018-09-17] MEDS: DOCUSATE SODIUM 100 MG CAP PO SCH ×2 (10:00→21:43)
[2018-09-17] MEDS: SIMVASTATIN 40 MG TAB PO SCH (10:01)
[2018-09-17] MEDS: guaiFENesin ER 600 MG TAB PO SCH ×2 (10:01→21:43)
[2018-09-17] MEDS: FAMOTIDINE 20 MG TAB PO SCH ×2 (10:01→21:43)
[2018-09-17] MEDS: CARVedilol 12.5 MG TAB PO SCH ×2 (10:02→21:00)
[2018-09-17 10:14] LABS: BLOOD UREA NITROGEN 13 MG/DL (7-18); CALCIUM LEVEL 8.5 MG/DL (8.5-10.1); CARBON DIOXIDE LEVEL 25 MEQ/L (21-32); CHLORIDE LEVEL 110 MEQ/L (98-107); GLOMERULAR FILTRATION RATE > 60.0 (>56); GLUCOSE, FASTING 109 MG/DL (70-100); POTASSIUM SERUM 3.2 MEQ/L (3.5-5.1); SODIUM LEVEL 141 MEQ/L (136-145)
[2018-09-17] MEDS ORDERED: SLF 3 ML SYR IV PRN (10:30)
[2018-09-17] MEDS ORDERED: NS 500 ML IV STA (10:51)
[2018-09-17] MEDS ORDERED: POTASSIUM CHLORIDE 10 MEQ SR TABLET PO ONE (11:00)
[2018-09-17] MEDS: NS 1,000 ML IV SCH ×2 (11:06→18:46)
[2018-09-17 11:08] LABS: MAGNESIUM LEVEL 2.1 MG/DL (1.8-2.4)
[2018-09-17 12:00] VITALS: BP 106/61
[2018-09-17] MEDS: BENZONATATE 100 MG CAP PO SCH ×2 (12:11→21:43)
[2018-09-17] MEDS: SLF 3 ML SYR IV SCH ×2 (13:45→21:44)
[2018-09-17 16:00] VITALS: BP 90/54
--- NOTE | 2018-09-17 16:24 | IPNPDOC ---
Subjective Date Seen The patient was seen on 09/17/18. Subjective Chief Complaint/HPI Cough, shortness of breath, fevers Events since last encounter I personally saw and examined the patient earlier today. He presents with cough as well as shortness of breath. Productive sputumgreenish colored. Associated fevers. Recent ureteral stent - he was supposed to follow-up as an outpatient with urology for scheduling lithotripsy, however, and up in the hospital because of the shortness of breath/cough/fevers. Chart was personally reviewed. Labs reviewed. Imaging studies reviewed. Objective Physical Examination General Exam: Positive: Alert, Cooperative, No Acute Distress Eye Exam: Positive: PERRLA, Conjunctiva & lids normal, EOMI; Negative: Sclera icteric ENT Exam: Positive: Atraumatic, Mucous membr. moist/pink, Pharynx Normal, Tongue Midline, Nares Patent; Negative: Pharyngeal Edema Neck Exam: Positive: Supple, +2 carotid pulse wo bruit; Negative: JVD, thyromegaly, Lymphadenopathy Chest Exam: Positive: Rales, Diminished; Negative: Clear to auscultation, Normal air movement, Rhonchi, Wheezing Heart Exam: Positive: Tachycardic, Regular Rhythm, Normal S1, Normal S2; Negative: Gallops, Murmurs, Rubs Telemetry: Positive: Tachycardia Abdomen Exam: Positive: BS Hypoactive, Other (healed abdominal surgical incisions); Negative: Soft (guarding midline lower abdomen), Tenderness, Hepatosp enomegaly, Mass, Hernia Extremity Exam: Negative: Clubbing, Cyanosis, Edema, Normal pulses (tachycardic), Tenderness Skin Exam: Negative: Rash, Lesion Neuro Exam: Positive: Normal Speech, Cranial Nerves 3-12 NL Psych Exam: Positive: Oriented x 3 Assessment /Plan Assessment Current Medications Acetaminophen (Tylenol Tab) 650 mg Q4H PRN PO PAIN OR FEVER Last administered on 09/17/18at 05:52; Start 09/17/18 at 05:45; Stop 09/17/18 at 06:52; Status DC Acetaminophen (Tylenol Tab) 1,000 mg Q8HP PRN PO PAIN / FEVER; Start 09/17/18 at 07:00 Acetaminophen/ Butalbital/ Caffeine (Fioricet) 1 ea Q6H PRN PO MIGRAINE; Start 09/17/18 at 05:45 Albuterol Sulfate (Proventil Neb) 2.5 mg RQ6H NEB Last administered on 09/17/18at 13:16; Start 09/17/18 at 08:00 Albuterol/ Ipratropium (Duoneb (Ipr 0.5mg/Alb 2.5mg)) 3 ml Q2HP PRN NEB SOB/WHEEZING; Start 09/17/18 at 05:45 Albuterol/ Ipratropium (Duoneb (Ipr 0.5mg/Alb 2.5mg)) 3 ml RQ6H NEB ; Start 09/17/18 at 08:00; Stop 09/17/18 at 08:00; Status DC Aspirin (Aspirin) 325 mg DAILY PO Last administered on 09/17/18at 10:00; Start 09/17/18 at 09:00 Benzonatate (Tessalon Perles) 100 mg BID PO Last administered on 09/17/18at 12:11; Start 09/17/18 at 09:00 Carvedilol (COReg) 12.5 mg BID PO ; Start 09/17/18 at 09:00 Carvedilol (COReg) 25 mg BID PO ; Start 09/17/18 at 09:00; Stop 09/17/18 at 09:00; Status DC Docusate Sodium (Colace) 100 mg BID PO Last administered on 09/17/18at 10:00; Start 09/17/18 at 09:00 Enoxaparin Sodium (Lovenox) 40 mg DAILY SC ; Start 09/18/18 at 09:00 Famotidine (Pepcid) 20 mg BID PO Last administered on 09/17/18at 10:01; Start 09/17/18 at 09:00 Fluticasone Propionate (Flovent Hfa 220mcg) 1 puff BID INH Last administered on 09/17/18at 07:15; Start 09/17/18 at 09:00 Guaifenesin (Mucinex Tab Er) 600 mg BID PO Last administered on 09/17/18at 10:01; Start 09/17/18 at 09:00 Home Med (Med Rec Complete!) ASDIRECTED XX ; Start 09/17/18 at 04:45; Stop 09/17/18 at 04:49; Status DC Meropenem 1 gm/IV Miscellaneous Supplies 50 ml @ 100 mls/hr Q8H IV Last administered on 09/17/18at 13:46; Start 09/17/18 at 06:00 Miscellaneous (Unresolved Patient Own Med Order) SEE LABEL COMMENTS DAILY XX ; Start 09/17/18 at 09:00 Nortriptyline HCl (Pamelor) 50 mg QHS PO ; Start 09/17/18 at 21:00 Patient Own Medication (Patient'S Own Med) 1 ea ASDIRECTED PO ; Start 09/17/18 at 05:45; Status UNV Sacubitril/ Valsartan (Entresto 97-103 Mg) 1 tab BID PO ; Start 09/17/18 at 09:00; Stop 09/17/18 at 09:00; Status DC Simvastatin (Zocor) 40 mg DAILY PO Last administered on 09/17/18at 10:01; Start 09/17/18 at 09:00 Sodium Chloride 500 ml @ 0 mls/hr BOLUS STAT IV Last administered on 09/17/18at 11:07; Start 09/17/18 at 10:51; Stop 09/17/18 at 10:54; Status DC Sodium Chloride 1,000 ml @ 75 mls/hr [id number] IV Last administered on 09/17/18at 11:06; Start 09/17/18 at 11:00; Stop 09/18/18 at 00:19 Sodium Chloride (Saline Lock Flush) 2 ml ASDIRECTED PRN IV SEE LABEL COMMENTS; Start 09/17/18 at 10:30 Sodium Chloride (Saline Lock Flush) 2 ml SLF IV ; Start 09/17/18 at 14:00 1. Sepsis possibly secondary to her respiratory infection versus complicated UTI, present on admission: -Continue meropenem -Given additional fentanyl normal saline bolus and continue IV fluids thereafter -Watch for fluid overload in setting of history of systolic congestive heart failure -Follow up on culture results -Respiratory panel negative -Ordered streptococcus urinary antigen -Sputum Gram stain shows gram-positive cocci in pairs -We'll hold BP lowering medications including interest of/torsemide /spironolactone 2. COPD without exacerbation -Continue Dounebs, supplement O2 as needed scheduled -Continue Flovent 3. Nephrolithiasis -Follow up urine cultures -Outpatient urology follow-up -If urine cultures are positive, we will consult urology to evaluate for need for stent exchange 4. Systolic CHF with EF 45%, compensated -Holding Entresto, Spironolactone, and Torsemide d -Continue Carvedilol. 5. CAD -Continue ASA, carvedilol, simvastatin 6. CKD-III -Holding Torsemide, Entresto and Spironolactone due to HoTN. 7. GERD -Continue Pepcid. 8. Migraines -Continue Fioricet. 9. HIV -Continue home meds once patient's family able to bring in same 10. DLP -Continue Simvastatin. 11. Depression/insomnia -Continue Nortriptyline. 12. GI/DVT PPx: -Famotidine, enoxaparin Plan/VTE VTE Prophylaxis Ordered?: Yes (Lovenox 40mg SQ daily) Plan Diet: Continue Current Activity: Continue Current Medications: Start Antibiotics Diagnostics: Check Labs, Repeat Labs in AM, Obtain Cultures Anticipated Discharge: Home VS, I&O, 24H, Fishbone Vital Signs/I&O Vital Signs Date Time Temp Pulse Resp B/P (MAP) Pulse Ox O2 Delivery O2 Flow Rate FiO2 09/17/18 16:00 98.7 97 17 90/54 (66) 95 09/17/18 09:00 Room Air I&O- Last 24 Hours up to 6 AM 09/17/18 06:00 Intake Total 50 ml Output Total 200 ml Balance -150 ml Laboratory Data 24H LABS Laboratory Tests 2 09/17/18 01:31: Urine Color YELLOW, Urine Appearance HAZY, Urine pH 5.0, Urine Specific [place] 1.009, Urine Protein 1+H, Urine Glucose (UA) NEGATIVE, Urine Ketones NEGATIVE, Urine Blood 3+H, Urine Nitrite NEGATIVE, Urine Bilirubin NEGATIVE, Urine Urobilinogen 0.2, Urine Leukocyte Esterase 2+H, Urine WBC (Auto) 24H, Urine RBC (Auto) 110H, Urine Hyaline Casts (Auto) 0, Urine Bacteria (Auto) 1+H, Urine Squamous Epithelial Cells 0, Urine Calcium Oxalate Cryst (Auto) SMALL, Urine Mucus (Auto) SMALL, Urine Sperm (Auto) 09/17/18 01:32: 09/17/18 01:33: Immature Granulocyte % (Auto) 0.4, White Blood Count 15.3H, Red Blood Count 4.03L, Hemoglobin 13.4L, Hematocrit 39.1L, Mean Corpuscular Volume 97.0H, Mean Corpuscular Hemoglobin 33.3H, Mean Corpuscular Hemoglobin Concent 34.3, Red Cell Distribution Width 13.2, Platelet Count 243, Neutrophils (%) (Auto) 72.1H, Lymphocytes (%) (Auto) 16.4L, Monocytes (%) (Auto) 10.1H, Eosinophils (%) (Auto) 0.7, Basophils (%) (Auto) 0.3, Neutrophils # (Auto) 11.0H, Lymphocytes # (Auto) 2.5, Monocytes # (Auto) 1.5H, Eosinophils # (Auto) 0.1, Basophils # (Auto) 0.1, Nucleated Red Blood Cells % (auto) 0.0, Anion Gap 7L, Glomerular Filtration Rate > 60.0, Lactic Acid Level 1.3, Calcium Level 9.0, Aspartate Amino Transf (AST/SGOT) 14, Alanine Aminotransferase (ALT/SGPT) 23, Alkaline Phosphatase 66, Total Bilirubin 0.4, Direct Bilirubin < 0.1, Total Creatine Kinase 96, Creatine Kinase MB < 1.0, Creatine Kinase MB Relative Index 1.04, Troponin I < 0.02, [id number]-Type Natriuretic Peptide 51, Total Protein 6.3L, Albumin 3.5, Albumin/Globulin Ratio 1.25, Thyroid Stimulating Hormone (TSH) 0.756, Free Thyroxine 1.05, Thyroxine (T4) 11.4 09/17/18 09:40: Nucleated Red Blood Cells % (auto) 0.0, Anion Gap 6L, Glomerular Filtration Rate > 60.0, Calcium Level 8.5, Blood Urea Nitrogen 13, Creatinine 0.90, Sodium Level 141, Potassium Level 3.2L, Chloride Level 110H, Carbon Dioxide Level 25, Magnesium Level 2.1 CBC/BMP Laboratory Tests 09/17/18 01:33 Red Blood Count 4.03 L, Mean Corpuscular Volume 97.0 H, Mean Corpuscular Hemoglobin 33.3 H, Mean Corpuscular Hemoglobin Concent 34.3, Red Cell Distribution Width 13.2, Neutrophils (%) (Auto) 72.1 H, Lymphocytes (%) (Auto) 16.4 L, Monocytes (%) (Auto) 10.1 H, Eosinophils (%) (Auto) 0.7, Basophils (%) (Auto) 0.3, Neutrophils # (Auto) 11.0 H, Lymphocytes # (Auto) 2.5, Monocytes # (Auto) 1.5 H, Eosinophils # (Auto) 0.1, Basophils # (Auto) 0.1 09/17/18 09:40 Red Blood Count 3.65 L, Mean Corpuscular Volume 96.7 H, Mean Corpuscular Hemoglobin 32.9, Mean Corpuscular Hemoglobin Concent 34.0, Red Cell Distribution Width 13.2, Calcium Level 8.5 Microbiology Microbiology 09/17/18 Blood Culture, Received Pending 09/17/18 Blood Culture, Received Pending 09/17/18 Respiratory Virus Panel (PCR) (BETTY) - Final, Complete 09/17/18 Gram Stain - Final, Resulted 09/17/18 Sputum Culture, Resulted Pending 09/17/18 Urine Culture, Received Pending VICKY NGUYEN MD September 17, 2018 16:24
[2018-09-17 20:00] VITALS: BP 117/68
--- NOTE | 2018-09-17 20:54 | ECGEPIP ---
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
[2018-09-17] MEDS: NORTRIPTYLINE 25 MG CAP PO SCH (21:43)
[2018-09-17 23:59] VITALS: BP 142/79
[2018-09-18] MEDS: ALBUTEROL SULFATE 2.5 MG/0.5 ML INH NEB SOLN NEB SCH ×4 (01:05→20:00)
[2018-09-18] MEDS: ACETAMINOPHEN 500 MG TAB PO PRN (01:40)
[2018-09-18 04:00] VITALS: BP 98/55
[2018-09-18 06:11] LABS: HEMATOCRIT 34.6 % (42.0-52.0); HEMOGLOBIN 11.6 g/dl (13.5-17.5); MEAN CORPUSCULAR HEMOGLOBIN 33.4 pg (27.0-33.0); MEAN CORPUSCULAR HGB CONC 33.5 g/dl (32.0-36.5); MEAN CORPUSCULAR VOLUME 99.7 fl (80.0-96.0); PLATELET COUNT, AUTOMATED 209 10^3/uL (150-450); RED BLOOD COUNT 3.47 10^6/uL (4.30-6.10); WHITE BLOOD COUNT 8.4 10^3/uL (4.0-10.0)
[2018-09-18] MEDS: SLF 3 ML SYR IV SCH ×3 (06:26→20:48)
[2018-09-18] MEDS: MEROPENEM INJ 1 GM in APPROPRIATE DILUENT 1 EA IV SCH ×3 (06:26→20:48)
[2018-09-18 06:31] LABS: BLOOD UREA NITROGEN 11 MG/DL (7-18); CALCIUM LEVEL 8.7 MG/DL (8.5-10.1); CARBON DIOXIDE LEVEL 26 MEQ/L (21-32); CHLORIDE LEVEL 114 MEQ/L (98-107); GLOMERULAR FILTRATION RATE > 60.0 (>56); GLUCOSE, FASTING 77 MG/DL (70-100); POTASSIUM SERUM 3.5 MEQ/L (3.5-5.1); SODIUM LEVEL 145 MEQ/L (136-145)
[2018-09-18] MEDS: FLUTICASONE HFA 220 MCG 12 GM INHALER (FLOVENT) INH SCH ×2 (07:43→19:58)
[2018-09-18 08:00] VITALS: BP 122/67
[2018-09-18] MEDS: ENOXAPARIN 40 MG/0.4 ML SYRINGE (J1650) SC SCH (08:51)
[2018-09-18] MEDS: DOCUSATE SODIUM 100 MG CAP PO SCH ×2 (08:51→20:40)
[2018-09-18] MEDS: CARVedilol 12.5 MG TAB PO SCH ×2 (08:51→20:40)
[2018-09-18] MEDS: ASPIRIN 325 MG TAB PO SCH (08:51)
[2018-09-18] MEDS: BENZONATATE 100 MG CAP PO SCH ×2 (08:51→20:40)
[2018-09-18] MEDS: guaiFENesin ER 600 MG TAB PO SCH ×2 (08:51→20:40)
[2018-09-18] MEDS: FAMOTIDINE 20 MG TAB PO SCH ×2 (08:52→20:40)
[2018-09-18] MEDS: SIMVASTATIN 40 MG TAB PO SCH (08:52)
[2018-09-18] MEDS: MOM 30ML SUSPENSION UDC PO PRN (11:24)
[2018-09-18 12:00] VITALS: BP 112/69
[2018-09-18 16:00] VITALS: BP 117/60
--- NOTE | 2018-09-18 17:12 | IPNPDOC ---
Subjective Date Seen The patient was seen on 09/18/18. Subjective Chief Complaint/HPI Cough, shortness of breath, fevers Events since last encounter Patient reports he is feeling a little better today. Still has some cough productive of colored sputum. No associated chest pain, no chills or sweats. No nausea or vomiting. Still has some dysuria but improving. Tolerating oral intake. Able to ambulate okay. Objective Physical Examination General Exam: Positive: Alert, Cooperative, No Acute Distress, Other (sitting up in bed) Eye Exam: Positive: PERRLA ENT Exam: Positive: Mucous membr. moist/pink Chest Exam: Positive: Other (slight bibasilar crackles right greater than left. No overt wheezing or distress.) Heart Exam: Positive: Rate Normal, Regular Rhythm, Normal S1, Normal S2; Negative: Gallops, Murmurs, Rubs Abdomen Exam: Positive: Soft; Negative: Tenderness Extremity Exam: Negative: Edema Skin Exam: Negative: Rash Neuro Exam: Positive: Normal Speech, Other (awake, alert, answering questions appropriately and moving all 4 extremities) Assessment /Plan Assessment Current Medications Acetaminophen (Tylenol Tab) 650 mg Q4H PRN PO PAIN OR FEVER Last administered on 09/17/18at 05:52; Start 09/17/18 at 05:45; Stop 09/17/18 at 06:52; Status DC Acetaminophen (Tylenol Tab) 1,000 mg Q8HP PRN PO PAIN / FEVER Last administered on 09/18/18at 01:40; Start 09/17/18 at 07:00 Acetaminophen/ Butalbital/ Caffeine (Fioricet) 1 ea Q6H PRN PO MIGRAINE; Start 09/17/18 at 05:45 Albuterol Sulfate (Proventil Neb) 2.5 mg RQ6H NEB Last administered on 09/18/18at 13:22; Start 09/17/18 at 08:00 Albuterol/ Ipratropium (Duoneb (Ipr 0.5mg/Alb 2.5mg)) 3 ml Q2HP PRN NEB SOB/WHEEZING; Start 09/17/18 at 05:45 Albuterol/ Ipratropium (Duoneb (Ipr 0.5mg/Alb 2.5mg)) 3 ml RQ6H NEB ; Start 09/17/18 at 08:00; Stop 09/17/18 at 08:00; Status DC Aspirin (Aspirin) 325 mg DAILY PO Last administered on 09/18/18 08:51; Start 09/17/18 at 09:00 Benzonatate (Tessalon Perles) 100 mg BID PO Last administered on 09/18/18 08:51; Start 09/17/18 at 09:00 Carvedilol (COReg) 12.5 mg BID PO Last administered on 09/18/18 08:51; Start 09/17/18 at 09:00 Carvedilol (COReg) 25 mg BID PO ; Start 09/17/18 at 09:00; Stop 09/17/18 at 09:00; Status DC Docusate Sodium (Colace) 100 mg BID PO Last administered on 09/18/18 08:51; Start 09/17/18 at 09:00 Enoxaparin Sodium (Lovenox) 40 mg DAILY SC Last administered on 09/18/18 08:51; Start 09/18/18 at 09:00 Famotidine (Pepcid) 20 mg BID PO Last administered on 09/18/18 08:52; Start 09/17/18 at 09:00 Fluticasone Propionate (Flovent Hfa 220mcg) 1 puff BID INH Last administered on 09/18/18 07:43; Start 09/17/18 at 09:00 Guaifenesin (Mucinex Tab Er) 600 mg BID PO Last administered on 09/18/18 08:51; Start 09/17/18 at 09:00 Home Med (Med Rec Complete!) ASDIRECTED XX ; Start 09/17/18 at 04:45; Stop 09/17/18 at 04:49; Status DC Magnesium Hydroxide (Milk Of Magnesia) 30 ml DAILYPRN PRN PO CONSTIPATION Last administered on 09/18/18 11:24; Start 09/18/18 at 10:30 Meropenem 1 gm/IV Miscellaneous Supplies 50 ml @ 100 mls/hr Q8H IV Last administered on 09/18/18 14:40; Start 09/17/18 at 06:00 Miscellaneous (Unresolved Patient Own Med Order) SEE LABEL COMMENTS DAILY XX ; Start 09/17/18 at 09:00 Nortriptyline HCl (Pamelor) 50 mg QHS PO Last administered on 5/28/19at 21:43; Start 09/17/18 at 21:00 Patient Own Medication (Patient'S Own Med) 1 ea ASDIRECTED PO ; Start 09/17/18 at 05:45; Status UNV Sacubitril/ Valsartan (Entresto 97-103 Mg) 1 tab BID PO ; Start 09/17/18 at 09:00; Stop 09/17/18 at 09:00; Status DC Simvastatin (Zocor) 40 mg DAILY PO Last administered on 09/18/18at 08:52; Start 09/17/18 at 09:00 Sodium Chloride 500 ml @ 0 mls/hr BOLUS STAT IV Last administered on 09/17/18at 11:07; Start 09/17/18 at 10:51; Stop 09/17/18 at 10:54; Status DC Sodium Chloride 1,000 ml @ 75 mls/hr [id number] IV Last administered on 09/17/18at 18:46; Start 09/17/18 at 11:00; Stop 09/18/18 at 00:19; Status DC Sodium Chloride (Saline Lock Flush) 2 ml ASDIRECTED PRN IV SEE LABEL COMMENTS; Start 09/17/18 at 10:30 Sodium Chloride (Saline Lock Flush) 2 ml SLF IV Last administered on 09/18/18at 14:41; Start 09/17/18 at 14:00 1. Sepsis possibly secondary to her respiratory infection versus complicated UTI, present on admission: -Continue meropenem D2 -DC IV fluids -Follow up on culture results - blood, sputum and urine culture pending -Respiratory panel negative -Ordered streptococcus urinary antigen -Sputum Gram stain shows gram-positive cocci in pairs - culture report pending -Hold BP lowering medications including Entresto/torsemide/spironolactone 2. COPD without exacerbation -Continue Dounebs, supplement O2 as needed scheduled -Continue Flovent 3. Nephrolithiasis -Follow up urine cultures -Outpatient urology follow-up - discussed with Dr. Chris andersenno need for stent exchange, recommends at least 10 days of abx treatment and outpatient follow-up with urology or definitive treatment for nephrolithiasis 4. Systolic CHF with EF 45%, compensated -Holding Entresto, Spironolactone, and Torsemide -Continue Carvedilol. 5. CAD -Continue ASA, carvedilol, simvastatin 6. CKD-III -Holding Torsemide, Entresto and Spironolactone due to Hypotension. 7. GERD -Continue Pepcid. 8. Migraines -Continue Fioricet. 9. HIV -Continue home meds once patient's family able to bring in same 10. DLP -Continue Simvastatin. 11. Depression/insomnia -Continue Nortriptyline. 12. GI/DVT PPx: -Famotidine, enoxaparin Disposition: Anticipate possible discharge home tomorrow pending blood, sputum and urine culture results. Plan/VTE VTE Prophylaxis Ordered?: Yes (Lovenox 40mg SQ daily) Plan Diet: Continue Current Activity: Continue Current Medications: Start Antibiotics Diagnostics: Check Labs, Repeat Labs in AM, Obtain Cultures Anticipated Discharge: Home VS, I&O, 24H, Fishbone Vital Signs/I&O Vital Signs Date Time Temp Pulse Resp B/P (MAP) Pulse Ox O2 Delivery O2 Flow Rate FiO2 09/18/18 16:00 97.8 96 18 117/60 (79) 99 09/17/18 09:00 Room Air I&O- Last 24 Hours up to 6 AM 09/18/18 06:00 Intake Total 3195 ml Output Total 1075 ml Balance 2120 ml Laboratory Data 24H LABS Laboratory Tests 2 09/18/18 05:51: Nucleated Red Blood Cells % (auto) 0.0, Anion Gap 5L, Glomerular Filtration Rate > 60.0, Blood Urea Nitrogen 11, Creatinine 0.80, Sodium Level 145, Potassium Level 3.5, Chloride Level 114H, Carbon Dioxide Level 26, Calcium Level 8.7 CBC/BMP Laboratory Tests 09/18/18 05:51 Red Blood Count 3.47 L, Mean Corpuscular Volume 99.7 H, Mean Corpuscular Hemoglobin 33.4 H, Mean Corpuscular Hemoglobin Concent 33.5, Red Cell Distribution Width 13.5, Calcium Level 8.7 Microbiology Microbiology 09/17/18 Blood Culture - Preliminary, Resulted No growth after 24 hours . All specim... 09/17/18 Blood Culture - Preliminary, Resulted No growth after 24 hours . All specim... 09/17/18 Respiratory Virus Panel (PCR) (BETTY) - Final, Complete 09/17/18 Gram Stain - Final, Resulted 09/17/18 Sputum Culture, Resulted Pending 09/17/18 Urine Culture - Final, Complete NGUYEN,VICKY Espinoza MD September 18, 2018 17:12
[2018-09-18 20:00] VITALS: BP 123/65
[2018-09-18] MEDS: NORTRIPTYLINE 25 MG CAP PO SCH (20:40)
[2018-09-18 23:59] VITALS: BP 106/62
[2018-09-19] MEDS: ALBUTEROL SULFATE 2.5 MG/0.5 ML INH NEB SOLN NEB SCH (01:43)
[2018-09-19] MEDS: ACETAMINOPHEN 500 MG TAB PO PRN (02:01)
[2018-09-19 04:00] VITALS: BP 101/55
[2018-09-19 05:38] LABS: HEMATOCRIT 35.9 % (42.0-52.0); HEMOGLOBIN 12.2 g/dl (13.5-17.5); PLATELET COUNT, AUTOMATED 222 10^3/uL (150-450); RED BLOOD COUNT 3.59 10^6/uL (4.30-6.10); WHITE BLOOD COUNT 9.2 10^3/uL (4.0-10.0)
[2018-09-19 06:05] LABS: BLOOD UREA NITROGEN 9 MG/DL (7-18); CALCIUM LEVEL 8.8 MG/DL (8.5-10.1); CARBON DIOXIDE LEVEL 26 MEQ/L (21-32); CHLORIDE LEVEL 109 MEQ/L (98-107); CREATININE FOR GFR 0.89 MG/DL (0.70-1.30); GLOMERULAR FILTRATION RATE > 60.0 (>56); GLUCOSE, FASTING 95 MG/DL (70-100); POTASSIUM SERUM 3.9 MEQ/L (3.5-5.1); SODIUM LEVEL 142 MEQ/L (136-145)
[2018-09-19] MEDS: MEROPENEM INJ 1 GM in APPROPRIATE DILUENT 1 EA IV SCH (06:42)
[2018-09-19] MEDS: SLF 3 ML SYR IV SCH (06:42)
[2018-09-19] MEDS: FLUTICASONE HFA 220 MCG 12 GM INHALER (FLOVENT) INH SCH (07:14)
[2018-09-19 08:00] VITALS: BP 101/66
[2018-09-19 09:00] VITALS: BP 101/66
[2018-09-19] MEDS: CARVedilol 12.5 MG TAB PO SCH (09:00)
[2018-09-19] MEDS: ENOXAPARIN 40 MG/0.4 ML SYRINGE (J1650) SC SCH (09:00)
[2018-09-19] MEDS: MOM 30ML SUSPENSION UDC PO PRN (09:19)
[2018-09-19] MEDS: BENZONATATE 100 MG CAP PO SCH (09:19)
[2018-09-19] MEDS: guaiFENesin ER 600 MG TAB PO SCH (09:20)
[2018-09-19] MEDS: DOCUSATE SODIUM 100 MG CAP PO SCH (09:20)
[2018-09-19] MEDS: FAMOTIDINE 20 MG TAB PO SCH (09:20)
[2018-09-19] MEDS: SIMVASTATIN 40 MG TAB PO SCH (09:20)
[2018-09-19] MEDS: ASPIRIN 325 MG TAB PO SCH (09:20)
[2018-09-19] MEDS ORDERED: MUCI600T31 PO (10:43)
[2018-09-19] MEDS ORDERED: CEFD300CAP PO (10:44)
--- NOTE | 2018-09-19 17:56 | DS.PDOC ---
Discharge Summary General Date of Admission September 17, 2018 at 06:46 Date of Discharge 09/18/18 Discharge Summary PROCEDURES PERFORMED DURING STAY: None. ADMITTING DIAGNOSES: Sepsis, COPD exacerbation, UTI with nephrolithiasis, systolic congestive heart failure with EF 45% compensated, coronary artery disease, chronic kidney disease stage III, GERD, migraines, HIV, dyslipidemia, depression/insomnia DISCHARGE DIAGNOSES: Sepsis likely secondary to respiratory infectionbronchitis versus early, negative or pneumonia present on admission now improvedUTI ruled out, COPD without exacerbation, nephrolithiasis, chronic systolic congestive heart failure with EF 45%, coronary artery disease, chronic kidney disease stage III, GERD, migraines, history of HIV, hyperlipidemia, depression/insomnia COMPLICATIONS/CHIEF COMPLAINT: Sepsis. HISTORY OF PRESENT ILLNESS: The patient is a 58-year-old gentleman with a previous history of HIV who presented to the ER with complains of increasing shortness of breath, nasal congestion, cough productive of greenish sputum, fever up to 11.8F at home. The patient had recent left obstructing urolithiasis status post ureteral stent placement earlier this month. Initial workup was concerning for sepsis and patient was admitted to our facility for further management. HOSPITAL COURSE: 1. Sepsis likely secondary to respiratory infectionbronchitis versus early, negative or pneumonia present on admission now improvedUTI ruled out -Patient was treated with IV meropenem -He was also given IV fluidsthese were subsequently discontinued. -She does concern regarding possible UTI with history of recent left ureteral stent, however, urine cultures showed no growth. -Respiratory panel was negative -Sputum Gram stain shows gram-positive cocci in pairs - culture report pending - suspect may have underlying strep pneumoniae infection -Held BP lowering medications including Entresto/torsemide/spironolactone hospital stay secondary to borderline blood pressureson discharge, patient has been advised to resume the same so long as his systolic blood pressures over 1 10. He has been advised to check his blood pressure 2-3 times a day. I have advised him to hold these blood pressure lowering medications if the systolic blood pressures less than 110 or if he is dizzy. -Clinically, patient has improved. Fevers have resolved. Blood pressures have improved. He has been able to ambulate without any problems. Appetite is good and he is tolerating oral intake. Patient does still have some cough, however this seems to be improving as well. 2. COPD without exacerbation -Continue Dounebs, supplement O2 as needed scheduled -Continue Flovent 3. Nephrolithiasis -And cultures were negative -Discussed with Dr. Perez no need for stent exchange, recommends at least 10 days of abx treatment and outpatient follow-up with urology or definitive treatment for nephrolithiasis - advised patient to [facility] same 4. Systolic CHF with EF 45%, compensated -Resume Entresto, Spironolactone, and Torsemide on discharge as noted above with instructions to hold if SBP less than 110 -Continue Carvedilol. 5. CAD -Continue ASA, carvedilol, simvastatin 6. CKD-III -Stable 7. GERD -Continued Pepcid. 8. Migraines -Continued Fioricet. 9. HIV -Continue home meds 10. DLP -Continue Simvastatin. 11. Depression/insomnia -Continue Nortriptyline. DISCHARGE MEDICATIONS: Please see below. ALLERGIES: Please see below. PHYSICAL EXAMINATION ON DISCHARGE: VITAL SIGNS: Please see below. GENERAL: Patient is sitting up in bed. No distress HEENT: PERRL, OMM CARDIOVASCULAR EXAMINATION: S1, S2 heard, no rubs or gallops RESPIRATORY EXAMINATION: Occasional slight rhonchi especially at lung bases. No wheeze, no distress ABDOMINAL EXAMINATION: Soft, nontender NEUROLOGICAL EXAMINATION: Awake, alert, answering motions appropriately. Able to ambulate in the james[place] without any problems LABORATORY DATA: Please see below. IMAGING: Chest CT: IMPRESSION: Mild atelectasis. Other incidental and non-emergent findings discussed above. Abdomen pelvis CT: IMPRESSION: No free air, free fluid or focal mesenteric inflammation. Nonspecific gastrointestinal findings as discussed above, could be correlated with any symptoms. Slight thick walled appearance of the urinary bladder could be correlated with urinalysis/culture if mild cystitis may be a possibility. PROGNOSIS: Fair ACTIVITY: As tolerated. DIET: 2 g sodium diet DISCHARGE PLAN: Patient to be discharged home today. Outpatient follow-up with Dr. Yuri Stanford Jr in one week for follow-up on his respiratory infection. Outpatient follow-up with Dr. Perez from [facility] has been advised to call his office to schedule appointment. DISPOSITION: Home DISCHARGE CONDITION: Stable. TIME SPENT ON DISCHARGE: 37 minutes. Vital Signs/I&Os Vital Signs Date Time Temp Pulse Resp B/P (MAP) Pulse Ox O2 Delivery O2 Flow Rate FiO2 09/19/18 09:00 90 101/66 09/19/18 08:00 97.0 16 92 09/17/18 09:00 Room Air I&O- Last 24 Hours up to 6 AM 09/19/18 06:00 Intake Total 1650 ml Output Total 1825 ml Balance -175 ml Laboratory Data Labs 24H Laboratory Tests 2 09/19/18 05:24: Nucleated Red Blood Cells % (auto) 0.0, Anion Gap 7L, Glomerular Filtration Rate > 60.0, Blood Urea Nitrogen 9, Creatinine 0.89, Sodium Level 142, Potassium Level 3.9, Chloride Level 109H, Carbon Dioxide Level 26, Calcium Level 8.8 CBC/BMP Laboratory Tests 09/19/18 05:24 Red Blood Count 3.59 L, Mean Corpuscular Volume 100.0 H, Mean Corpuscular He moglobin 34.0 H, Mean Corpuscular Hemoglobin Concent 34.0, Red Cell Distribution Width 13.3, Calcium Level 8.8 Microbiology Microbiology 09/17/18 Blood Culture - Preliminary, Resulted No Growth after 48 hours. All Specime... 09/17/18 Blood Culture - Preliminary, Resulted No Growth after 48 hours. All Specime... 09/17/18 Respiratory Virus Panel (PCR) (BETTY) - Final, Complete 09/17/18 Gram Stain - Final, Resulted 09/17/18 Sputum Culture, Resulted Pending 09/17/18 Urine Culture - Final, Complete Discharge Medications Scheduled Aspirin (Aspirin) 325 Mg Tablet, 325 MG PO DAILY, (Reported) Carvedilol (Carvedilol) 25 Mg Tab, 25 MG PO BID, (Reported) Cefdinir (Cefdinir) 300 Mg Capsule, 300 MG PO BID Cholecalciferol (Vitamin D3) (Vitamin D3) 2,000 Unit Capsule, 2,000 UNIT PO DAILY, (Reported) Cyanocobalamin (Vitamin B-12) (Vitamin B-12) 1,000 Mcg Tab, 1,000 MCG PO DAILY, (Reported) Docusate Sodium (Colace) 100 Mg Capsule, 100 MG PO BID, (Reported) Emtricitab/Rilpiviri/Tenof Ala (Odefsey Tablet) 1 Tab Tab, 1 TAB PO QHS, (Reported) Fluticasone Propionate (Flovent Hfa) 220 Mcg/Act Aer, 1 PUFF INH BID, (Reported) Guaifenesin (Mucinex) 600 Mg Tab.er.12h, 600 MG PO BID Multivitamins (Thera M Plus Tablet) 1 Each Tablet, 1 TAB PO DAILY, (Reported) Nortriptyline HCl (Nortriptyline HCl) 50 Mg Cap, 50 MG PO QHS, (Reported) Ranitidine HCl (Ranitidine HCl) 150 Mg Tab, 1 TAB PO BID, (Reported) Sacubitril/Valsartan (Entresto 97 mg-103 mg Tablet) 1 Each Tablet, 1 TAB PO BID, (Reported) Simvastatin (Simvastatin) 40 Mg Tab, 40 MG PO DAILY, (Reported) Spironolactone (Spironolactone) 25 Mg Tablet, 12.5 MG PO QHS, (Reported) Torsemide (Torsemide) 10 Mg Tablet, 10 MG PO Q2D, (Reported) Scheduled PRN Albuterol Sulfate (Ventolin Hfa) 18 Gm Hfa.aer.ad, 2 PUFF INH Q4H PRN for SOB/WHEEZING, (Reported) Butalb/Acetaminophen/Caffeine (Fioricet 50-300-40 mg Capsule) 1 Cap Cap, 1 CAP PO Q6H PRN for MIGRAINE, (Reported) Ibuprofen (Ibuprofen) 200 Mg Tablet, 400 MG PO Q6H PRN for PAIN, (Reported) Allergies Coded Allergies: benzalkonium chloride (Verified Allergy, Intermediate, severe eye swelling , 09/17/18) edetic acid (Verified Allergy, Intermediate, severe eye swelling , 09/17/18) lanolin (Verified Allergy, Intermediate, EYE SWELLING, 09/17/18) mineral oil (Verified Allergy, Intermediate, EYE SWELLING, 09/17/18) petrolatum,white (Verified Allergy, Intermediate, EYE SWELLING, 09/17/18) dextran sulfate (Verified Allergy, Unknown, severe eye swelling , 09/17/18) methylcellulose (Verified Adverse Reaction, Severe, HYDROXYPROPYL=SEVERE EYE SWELLING, 09/17/18) VICKY NGUYEN MD September 19, 2018 10:47
== END 2018-09-19 12:30 | disposition home or self-care (01) | DRG 890 ==
LOC: M ED 23:39 → M ED INP 09-17 06:46 → M PCU 09-17 09:25
PROVIDERS: ADMIT Internal Medicine Nephrology; ATTEND Internal Medicine
DX: A41.9 Sepsis, unspecified organism (principal); B20 Human immunodeficiency virus [HIV] disease; I50.22 Chronic systolic (congestive) heart failure; N18.3 Chronic kidney disease, stage 3 (moderate); J44.0 Chronic obstructive pulmonary disease with (acute) lower respiratory infection; I25.10 Atherosclerotic heart disease of native coronary artery without angina pectoris; K21.9 Gastro-esophageal reflux disease without esophagitis; E78.5 Hyperlipidemia, unspecified; F32.9 Major depressive disorder, single episode, unspecified; G47.00 Insomnia, unspecified; Z79.82 Long term (current) use of aspirin; Z79.899 Other long term (current) drug therapy; Z88.8 Allergy status to other drugs, medicaments and biological substances; Z95.0 Presence of cardiac pacemaker; Z90.49 Acquired absence of other specified parts of digestive tract; Z96.0 Presence of urogenital implants; Z87.891 Personal history of nicotine dependence

== ENCOUNTER → 2018-09-25 | Outpatient (CLI) | payer OTHER ==
[~2018-09-25] MED LIST changes: +CEFD300CAP PO; +IBUP-1092 PO; +IBUP200C25 PO; +MUCI600T31 PO
[2018-09-25 15:24] LABS: APPEARANCE, URINE HAZY (CLEAR); BACTERIA, URINE AUTO 1+ (NEGATIVE); BILIRUBIN, URINE AUTO NEGATIVE (NEGATIVE); BLOOD, URINE BLOOD 2+ (NEGATIVE); COLOR, URINE YELLOW (YELLOW); GLUCOSE, URINE (UA) AUTO NEGATIVE (NEGATIVE); KETONE, URINE AUTO TRACE mg/dL (NEGATIVE); LEUKOCYTE ESTERASE, URINE AUTO 2+ (NEGATIVE); MUCUS, URINE SMALL (NEGATIVE); NITRITE, URINE AUTO NEGATIVE (NEGATIVE); PROTEIN, URINE AUTO 2+ mg/dL (NEGATIVE); RBC, URINE AUTO TNTC /HPF (0-3); SPECIFIC GRAVITY URINE AUTO 1.017 (1.002-1.035); SQUAMOUS EPITHELIAL CELL UR AU 0 /HPF (0-6); UROBILINOGEN, URINE AUTO 0.2 mg/dL (0.0-2.0); WBC, URINE AUTO 45 /HPF (0-3)
[2018-09-25 15:30] LABS: BASO # 0.1 10^3/uL (0.0-0.2); BASO % 0.8 % (0.0-1.0); EOS # 0.2 10^3/uL (0.0-0.50); HEMATOCRIT 41.8 % (42.0-52.0); HEMOGLOBIN 14.1 g/dl (13.5-17.5); LYMPH # 2.7 10^3/uL (1.5-4.5); LYMPH % 36.6 % (24.0-44.0); MEAN CORPUSCULAR HEMOGLOBIN 33.7 pg (27.0-33.0); MEAN CORPUSCULAR HGB CONC 33.7 g/dl (32.0-36.5); MEAN CORPUSCULAR VOLUME 99.8 fl (80.0-96.0); MONO # 0.8 10^3/uL (0.0-0.8); MONO % 11.2 % (0.0-5.0); NEUTROPHILS # 3.3 10^3/uL (1.8-7.7); NEUTROPHILS % 45.6 % (36.0-66.0); PLATELET COUNT, AUTOMATED 302 10^3/uL (150-450); RED BLOOD COUNT 4.19 10^6/uL (4.30-6.10); WHITE BLOOD COUNT 7.3 10^3/uL (4.0-10.0)
[2018-09-25 15:48] LABS: ALBUMIN 3.3 GM/DL (3.2-5.2); ALT/SGPT 33 U/L (12-78); BILIRUBIN,TOTAL 0.2 MG/DL (0.2-1.0); BLOOD UREA NITROGEN 22 MG/DL (7-18); CALCIUM LEVEL 9.3 MG/DL (8.5-10.1); CARBON DIOXIDE LEVEL 29 MEQ/L (21-32); CHLORIDE LEVEL 107 MEQ/L (98-107); CHOLESTEROL LEVEL 220 MG/DL (<200); CHOLESTEROL RISK RATIO 6.111 (<5); CREATININE FOR GFR 1.05 MG/DL (0.70-1.30); GLOMERULAR FILTRATION RATE > 60.0 (>56); GLUCOSE, FASTING 123 MG/DL (70-100); HDL CHOLESTEROL 36 MG/DL (>40); LDL CHOLESTEROL 136 MG/DL (<100); NON-HDL-C 184 MG/DL; POTASSIUM SERUM 4.5 MEQ/L (3.5-5.1); SODIUM LEVEL 141 MEQ/L (136-145); TOTAL PROTEIN 6.4 GM/DL (6.4-8.2); TRIGLYCERIDES LEVEL 239 MG/DL (<150)
[2018-09-25 15:58] LABS: HEPATITIS B SURFACE ANTIBODY POSITIVE (POSITIVE)
[2018-09-25 16:08] LABS: HEMOGLOBIN A1c 5.8 %
[2018-09-25 16:09] LABS: HEPATITIS B SURFACE ANTIGEN NEGATIVE (NEGATIVE)
[2018-09-25 16:37] LABS: HEPATITIS C VIRUS ABY INDEX < 0.0 INDEX (<0.8)
[2018-10-01 14:12] LABS: HEPATITIS A IgG TOTAL Positive (Negative); HIV-1 RNA PCR QUANT 2 LC550285 <20 copies/mL (.)
== END ==
LOC: M LAB 14:30
DX: B20 Human immunodeficiency virus [HIV] disease (principal)

== ENCOUNTER 2018-10-16 11:00 | Day surgery (SDC) | payer OTHER ==
[~2018-10-16] VITALS: Ht 162.6 cm; Wt 59.0 kg
[~2018-10-16 11:00] MED LIST changes: +LIDOCAINE 2% INJ 100 MG/5 ML SDV (FOR ANES.) As Ordered ONE; +MIDAZOLAM INJ 2 MG/2 ML VIAL (J2250) As Ordered ONE; +ONDANSETRON 4MG/2ML VIAL (J2405) As Ordered ONE; +PROPOFOL 200 MG/20 ML VIAL As Ordered ONE; +dexameTHASONE 4 MG/ML 1ML VIAL (J1100) As Ordered ONE; +fentaNYL 100 MCG/2 ML INJECTION (J3010) As Ordered ONE
[2018-10-16] MEDS ORDERED: CONRAY-60 60% 50ML VIAL (Q9961) As Ordered ONE (14:37)
[2018-10-16] MEDS ORDERED: fentaNYL 100 MCG/2 ML INJECTION (J3010) As Ordered ONE (15:54)
[2018-10-16] MEDS: oxyCODONE 5MG TAB PO PRN ×2 (16:19→16:55)
[2018-10-16] MEDS ORDERED: oxyCODONE 5MG TAB As Ordered ONE (16:22)
[2018-10-16] MEDS ORDERED: METOCLOPRAMIDE INJ 10MG/2ML VIAL (J2765) IV PRN (16:30)
[2018-10-16] MEDS ORDERED: LR 1,000 ML IV SCH (16:30)
--- NOTE | 2018-10-16 16:33 | REP ---
Retrograde pyelogram: Three views. History: 9 mm left ureteral stone. 19 seconds of fluoroscopy time is reported. Findings: A sequence of three last image hold fluoroscopically obtained spot radiographs of the abdomen document ureteral cannulation, contrast injection, and stent placement. No laterality markers are visible. Electronically Signed by Gerson Cotto MD 10/16/2018 04:36 P
[2018-10-16] MEDS ORDERED: NORCO, ANEXSIA 5/325MG TABLET (HYDROcodone/ACETAMINOPHEN) PO PRN (16:45)
[2018-10-16] MEDS: fentaNYL 100 MCG/2 ML INJECTION (J3010) IV PRN ×4 (16:55→17:13)
[2018-10-16] MEDS ORDERED: PROMETHAZINE INJ 25 MG/ML VIAL (J2550) IV PRN (17:15)
[2018-10-16] MEDS ORDERED: KETOROLAC 30 MG/ML VIAL (J1885) IV PRN (17:15)
[2018-10-16 18:10] VITALS: BP 131/75
--- NOTE | 2018-10-16 19:04 | RO ---
DATE OF PROCEDURE: 10/16/2018 PREPROCEDURE DIAGNOSIS: Left ureteral stone. POSTPROCEDURE DIAGNOSIS: Left ureteral stone. PROCEDURE: Cystoscopy, left ureteroscopy with laser lithotripsy and basket extraction of stones, left retrograde pyelogram with intraoperative interpretation of images, left ureteral stent placement. SURGEON: Cordell Perez MD SUPERVISOR OF WAY: None. ANESTHESIA: General. OPERATIVE INDICATIONS: This is a 58-year-old male who was found to have an obstructing 9 mm distal left ureteral stone approximately one month ago and had a ureteral stent placed at that time. He is brought to the operating room today for treatment of the stone. DESCRIPTION OF PROCEDURE: The patient was brought to the operating room and general anesthesia was induced. Prophylactic antibiotics were infused. He was then placed in the dorsal lithotomy position, prepped and draped in the usual sterile fashion. A rigid cystoscope was inserted into the urethral meatus and advanced to the bladder. The previously placed stent was grasped and withdrawn until the distal end was seen protruding from the urethral meatus. I then advanced a wire up the left ureteral stent and then removed the stent leaving the wire in place. I then went up the left collecting system with a short semi-rigid ureteroscope and within the distal ureter the 9 mm stone was seen. The stone was then fragmented into smaller pieces using 272 Micron laser fiber. All the fragments were then removed using a basket. I then examined the mid proximal ureter and no additional stones were seen. I then removed the short semi rigid ureteroscope and advanced the ureteral access sheath over the wire. I went up the access sheath with a flexible ureteroscope and examined the left kidney thoroughly. I did not see any additional stones within the left kidney after searching each calyx four to five times. At this point I shot a retrograde pyelogram and was notable for moderate left hydronephrosis without extravasation. I then withdrew the ureteroscope along with access sheath and once again no stones were seen within the ureter. I then utilized the wire to advance a #6-Maori x 22-32 cm JJ ureteral stent up to the left collecting system. The wire was removed and there were adequate curls of the stent in the left renal pelvis and in the bladder. The bladder was emptied of all fluids and this marked the conclusion of the procedure. The patient was then taken out of the dorsal lithotomy position, awakened from anesthesia and transported to the recovery room in stable condition. ESTIMATED BLOOD LOSS: 5 mL. COMPLICATIONS: None. SPECIMENS: Kidney stone fragments. PLAN: The patient will followup in the clinic in a week or two for stent removal. JAY
== END 2018-10-16 18:18 | disposition home or self-care (01) ==
LOC: M SDC 11:00
PROVIDERS: ATTEND Urology
DX: N20.1 Calculus of ureter (principal); I10 Essential (primary) hypertension; K21.9 Gastro-esophageal reflux disease without esophagitis; E78.00 Pure hypercholesterolemia, unspecified; J44.9 Chronic obstructive pulmonary disease, unspecified; Z95.0 Presence of cardiac pacemaker; Z95.810 Presence of automatic (implantable) cardiac defibrillator; Z79.51 Long term (current) use of inhaled steroids; Z79.899 Other long term (current) drug therapy; Z91.030 Bee allergy status
CPT/HCPCS: 52356; 74420; 82360; 88300; C1769; C1894; C2617; J0690; J1100; J1885; J2250; J2405; J3010; Q9961

== ENCOUNTER → 2019-04-30 | Outpatient (REF) | payer OTHER ==
[~2019-04-30] MED LIST changes: -ASPI1TAB20 PO; +ASPI325T57 PO; +CYAN100049 PO; -IBUP-1092 PO; +IBUP-1764 PO; -LIDOCAINE 2% INJ 100 MG/5 ML SDV (FOR ANES.) As Ordered ONE; -MIDAZOLAM INJ 2 MG/2 ML VIAL (J2250) As Ordered ONE; -ONDANSETRON 4MG/2ML VIAL (J2405) As Ordered ONE; -PROPOFOL 200 MG/20 ML VIAL As Ordered ONE; -SIMV40TA2 PO; +SIMV40TA20 PO; -VITA10002 PO; -dexameTHASONE 4 MG/ML 1ML VIAL (J1100) As Ordered ONE; -fentaNYL 100 MCG/2 ML INJECTION (J3010) As Ordered ONE
[2019-04-30 13:57] LABS: APPEARANCE, URINE HAZY (CLEAR); BACTERIA, URINE AUTO NEGATIVE (NEGATIVE); BILIRUBIN, URINE AUTO NEGATIVE (NEGATIVE); BLOOD, URINE BLOOD NEGATIVE (NEGATIVE); COLOR, URINE AMBER (YELLOW); GLUCOSE, URINE (UA) AUTO NEGATIVE (NEGATIVE); KETONE, URINE AUTO TRACE mg/dL (NEGATIVE); LEUKOCYTE ESTERASE, URINE AUTO TRACE (NEGATIVE); MUCUS, URINE SMALL (NEGATIVE); NITRITE, URINE AUTO NEGATIVE (NEGATIVE); PROTEIN, URINE AUTO NEGATIVE (NEGATIVE); RBC, URINE AUTO 1 /HPF (0-3); SPECIFIC GRAVITY URINE AUTO 1.025 (1.002-1.035); SQUAMOUS EPITHELIAL CELL UR AU 0 /HPF (0-6); WBC, URINE AUTO 7 /HPF (0-3)
== END ==
LOC: M SMT 13:11
PROVIDERS: ATTEND Nurse Practitioner Women's Health
DX: Z87.442 Personal history of urinary calculi (principal)

== ENCOUNTER → 2019-05-24 | Outpatient (CLI) | payer OTHER ==
--- NOTE | 2019-05-25 07:59 | REP ---
PA and lateral chest: Comparison is 09/17/2018. The lung mcneill are clear. The cardiac size is normal. The chris, mediastinum, and skeletal structures are unremarkable. There is a dual-chamber pacemaker, unchanged. There are orthopedic anchor screws in the proximal humeral shafts bilaterally. Impression: Negative PA and lateral chest. Electronically Signed by León Herron MD 05/25/2019 07:50 A
== END ==
LOC: M WUC 17:12
PROVIDERS: ATTEND Physician Assistant
DX: R05 Cough (principal)

== ENCOUNTER 2020-04-12 11:51 | Emergency (ER) | payer OTHER ==
[~2020-04-12] VITALS: Ht 162.6 cm; Wt 61.4 kg
[2020-04-12] MEDS ORDERED: DESC1TAB PO (12:06)
[2020-04-12] MEDS ORDERED: [UNRECOGNIZED DRUG - OTHER] PO (12:06)
[2020-04-12 14:19] LABS: BASO % 0.4 % (0.0-1.0); EOS # 0.2 10^3/uL (0.0-0.5); EOS % 1.5 % (0.0-3.0); HEMATOCRIT 45.7 % (42.0-52.0); HEMOGLOBIN 14.6 g/dl (13.5-17.5); LYMPH # 3.1 10^3/uL (1.5-5.0); LYMPH % 27.9 % (24.0-44.0); MEAN CORPUSCULAR HEMOGLOBIN 32.5 pg (27.0-33.0); MEAN CORPUSCULAR HGB CONC 31.9 g/dl (32.0-36.5); MEAN CORPUSCULAR VOLUME 101.8 fl (80.0-96.0); MONO # 0.9 10^3/uL (0.0-0.8); MONO % 8.1 % (0.0-5.0); NEUTROPHILS # 6.8 10^3/uL (1.5-8.5); NEUTROPHILS % 61.6 % (36.0-66.0); PLATELET COUNT, AUTOMATED 260 10^3/uL (150-450); RED BLOOD COUNT 4.49 10^6/uL (4.30-6.10); WHITE BLOOD COUNT 11.1 10^3/uL (4.0-10.0)
[2020-04-12 14:48] LABS: ALBUMIN 4.1 GM/DL (3.2-5.2); ALT/SGPT 30 U/L (12-78); BILIRUBIN,DIRECT < 0.1 MG/DL (0.0-0.2); BILIRUBIN,TOTAL 0.2 MG/DL (0.2-1.0); BLOOD UREA NITROGEN 18 MG/DL (7-18); CALCIUM LEVEL 9.6 MG/DL (8.8-10.2); CARBON DIOXIDE LEVEL 29 MEQ/L (21-32); CHLORIDE LEVEL 108 MEQ/L (98-107); CREATININE FOR GFR 1.04 MG/DL (0.70-1.30); GLOMERULAR FILTRATION RATE > 60.0 (>49); GLUCOSE, FASTING 97 MG/DL (70-100); LIPASE 108 U/L (73-393); POTASSIUM SERUM 4.5 MEQ/L (3.5-5.1); SODIUM LEVEL 140 MEQ/L (136-145); TOTAL PROTEIN 7.3 GM/DL (6.4-8.2)
[2020-04-12] MEDS ORDERED: ONDANSETRON 4MG/2ML VIAL IV ONE (15:00)
[2020-04-12] MEDS ORDERED: KETOROLAC 30 MG/ML 1ML VIAL IV ONE (15:00)
[2020-04-12] MEDS ORDERED: NS 1,000 ML IV ONE (15:00)
--- NOTE | 2020-04-12 15:29 | REP ---
INDICATION: left flank/abd pain COMPARISON: 09/17/2018. TECHNIQUE: CT Scan of the abdomen and pelvis was performed without intravenous contrast. Sagittal and coronal reconstruction images performed. FINDINGS: Lung bases: Unremarkable. Liver: Grossly unremarkable. Gallbladder: Unremarkable. Spleen: Grossly unremarkable.. Adrenals: Normal. Pancreas: Grossly unremarkable.. Kidneys: There are 3 scattered punctate calculi in the right renal collecting system. A cyst is seen in the upper pole and another in the lower pole of the right kidney. There is no hydroureteronephrosis on the right. A 4 mm calculus is seen in the distal 3rd of the left ureter causing moderate left hydroureteronephrosis proximally. Four calculi are scattered in the upper and mid left renal collecting system, the largest measures 4 mm in diameter. Small and large bowel: Grossly unremarkable.. Free fluid: None. Abdominal aorta: No aneurysm. There are moderate atherosclerotic calcifications of the abdominal aorta. Adenopathy: None. Osseous structures: Unremarkable. Pelvis: No mass. No bladder calculus seen. There is a small left inguinal hernia containing fat. IMPRESSION: There is a 4 mm calculus in the distal 3rd of the left ureter causing moderate left hydroureteronephrosis. <Electronically signed by León Velásquez > 04/12/20 [id number]
[2020-04-12] MEDS ORDERED: FLOM0.4C39 PO (15:59)
[2020-04-12] MEDS ORDERED: KETO10TAB PO (15:59)
[2020-04-12 16:08] VITALS: BP 128/80
== END 2020-04-12 16:14 | disposition home or self-care (01) ==
LOC: M ED 11:51
DX: N20.1 Calculus of ureter (principal); B20 Human immunodeficiency virus [HIV] disease; I48.91 Unspecified atrial fibrillation; I50.9 Heart failure, unspecified; I10 Essential (primary) hypertension; Z87.442 Personal history of urinary calculi; E78.5 Hyperlipidemia, unspecified; G43.909 Migraine, unspecified, not intractable, without status migrainosus; J44.9 Chronic obstructive pulmonary disease, unspecified; J45.909 Unspecified asthma, uncomplicated; K21.9 Gastro-esophageal reflux disease without esophagitis; Z85.47 Personal history of malignant neoplasm of testis; Z87.891 Personal history of nicotine dependence; Z79.82 Long term (current) use of aspirin; Z79.899 Other long term (current) drug therapy; Z91.030 Bee allergy status; Z88.8 Allergy status to other drugs, medicaments and biological substances; Z91.89 Other specified personal risk factors, not elsewhere classified
CPT/HCPCS: 74176; 80048; 80076; 81001; 83690; 85025; 96361; 96374; 96375; 99284; J1885; J2405

== ENCOUNTER 2020-08-02 12:46 | Emergency (ER) | payer OTHER ==
[~2020-08-02] VITALS: Ht 175.3 cm; Wt 56.8 kg
[~2020-08-02 12:46] MED LIST changes: +DESC1TAB PO; +FLOM0.4C39 PO; +KETO10TAB PO; -LISI-538 PO; +LISI20TA33 PO; +[UNRECOGNIZED DRUG - OTHER] PO
[2020-08-02] MEDS ORDERED: METOCLOPRAMIDE INJ 10MG/2ML VIAL (J2765 PER 1) IV ONE (13:50)
[2020-08-02] MEDS ORDERED: KETOROLAC 30 MG/ML 1ML VIAL IV ONE (13:50)
[2020-08-02] MEDS ORDERED: diphenhydrAMINE 50MG/ML VIAL (J1200) IV ONE (13:50)
[2020-08-02] MEDS ORDERED: NS 1,000 ML IV ONE (13:50)
[2020-08-02] MEDS ORDERED: ACETAMINOPHEN 500 MG TAB PO ONE (13:50)
[2020-08-02 14:41] LABS: BASO % 0.2 % (0.0-1.0); EOS # 0.1 10^3/uL (0.0-0.5); EOS % 0.6 % (0.0-3.0); HEMATOCRIT 43.6 % (42.0-52.0); HEMOGLOBIN 14.4 g/dl (13.5-17.5); LYMPH # 1.8 10^3/uL (1.5-5.0); LYMPH % 13.3 % (24.0-44.0); MEAN CORPUSCULAR HEMOGLOBIN 33.4 pg (27.0-33.0); MEAN CORPUSCULAR VOLUME 101.2 fl (80.0-96.0); MONO # 0.7 10^3/uL (0.0-0.8); NEUTROPHILS % 80.4 % (36.0-66.0); PLATELET COUNT, AUTOMATED 236 10^3/uL (150-450); RED BLOOD COUNT 4.31 10^6/uL (4.30-6.10); WHITE BLOOD COUNT 13.7 10^3/uL (4.0-10.0)
[2020-08-02 15:06] LABS: ERYTHROCYTE SEDIMENTATION RATE 4 mm/hr (0-20)
[2020-08-02] MEDS ORDERED: MAG SULF 1GM/100ML (MAG RUN) 1 GM in IV 1 EA IV ONE (15:45)
[2020-08-02] MEDS ORDERED: dexameTHASONE 4 MG/ML 1ML VIAL (J1100 PER 1MG) IV ONE (15:45)
[2020-08-02 17:00] VITALS: BP 107/65
== END 2020-08-02 17:26 | disposition home or self-care (01) ==
LOC: M ED 12:46
DX: G43.909 Migraine, unspecified, not intractable, without status migrainosus (principal); I12.9 Hypertensive chronic kidney disease with stage 1 through stage 4 chronic kidney disease, or unspecified chronic kidney disease; J44.9 Chronic obstructive pulmonary disease, unspecified; I50.9 Heart failure, unspecified; N18.30 Chronic kidney disease, stage 3 unspecified; I48.91 Unspecified atrial fibrillation; Z79.899 Other long term (current) drug therapy; Z79.82 Long term (current) use of aspirin; Z88.2 Allergy status to sulfonamides; Z88.8 Allergy status to other drugs, medicaments and biological substances; Z91.030 Bee allergy status; Z87.891 Personal history of nicotine dependence
CPT/HCPCS: 80047; 85025; 85652; 86140; 96361; 96374; 96375; 99285; J1100; J1200; J1885; J2765; J3475

== ENCOUNTER → 2020-09-22 | Outpatient (CLI) | payer OTHER ==
[2020-09-22 10:59] LABS: BASO # 0.1 10^3/uL (0.0-0.2); BASO % 0.5 % (0.0-1.0); EOS # 0.3 10^3/uL (0.0-0.5); EOS % 2.5 % (0.0-3.0); HEMATOCRIT 45.3 % (42.0-52.0); HEMOGLOBIN 14.8 g/dl (13.5-17.5); LYMPH # 2.6 10^3/uL (1.5-5.0); LYMPH % 23.7 % (24.0-44.0); MEAN CORPUSCULAR HEMOGLOBIN 32.8 pg (27.0-33.0); MEAN CORPUSCULAR HGB CONC 32.7 g/dl (32.0-36.5); MEAN CORPUSCULAR VOLUME 100.4 fl (80.0-96.0); NEUTROPHILS # 6.9 10^3/uL (1.5-8.5); NEUTROPHILS % 63.5 % (36.0-66.0); PLATELET COUNT, AUTOMATED 253 10^3/uL (150-450); RED BLOOD COUNT 4.51 10^6/uL (4.30-6.10); WHITE BLOOD COUNT 10.9 10^3/uL (4.0-10.0)
[2020-09-22 11:33] LABS: ALBUMIN 3.4 GM/DL (3.2-5.2); ALT/SGPT 22 U/L (12-78); BILIRUBIN,TOTAL 0.3 MG/DL (0.2-1.0); BLOOD UREA NITROGEN 19 MG/DL (7-18); CALCIUM LEVEL 9.2 MG/DL (8.8-10.2); CARBON DIOXIDE LEVEL 28 MEQ/L (21-32); CHLORIDE LEVEL 106 MEQ/L (98-107); CREATININE FOR GFR 0.97 MG/DL (0.70-1.30); GLOMERULAR FILTRATION RATE > 60.0 (>49); GLUCOSE, FASTING 104 MG/DL (70-100); SODIUM LEVEL 138 MEQ/L (136-145); TOTAL PROTEIN 6.4 GM/DL (6.4-8.2)
[2020-09-24 01:07] LABS: HIV-1 RNA PCR QUANT 2 LC550285 <20 copies/mL (.)
== END ==
LOC: M LAB 10:09
DX: Z21 Asymptomatic human immunodeficiency virus [HIV] infection status (principal)

== ENCOUNTER → 2020-11-24 | Outpatient (CLI) | payer OTHER ==
--- NOTE | 2020-11-24 10:04 | REP ---
INDICATION: NICOTINE DEPEND. COMPARISON: Low-dose lung screening chest CT dated 11/14/[address] dated 09/17/2018. TECHNIQUE: The study is performed without IV contrast. The images are presented at lung windowing only. FINDINGS: There is chronic stable pleuroparenchymal scarring in the extreme right apex, unchanged. There is a tiny stable parenchymal scar at the inferior tip of the lingula, unchanged. There are no lung nodules or masses. There are no infiltrates or pleural effusions. IMPRESSION: Category [address] low-dose lung screening CT of the chest. Probability of malignancy is less than 1%. Depending on risk factors continued follow-up annual low-dose lung screening chest CT is recommended. <Electronically signed by León Herron > 11/24/20 1000
== END ==
LOC: M RAD 08:07
PROVIDERS: ATTEND Internal Medicine Pulmonary Disease
DX: F17.200 Nicotine dependence, unspecified, uncomplicated (principal)

== ENCOUNTER → 2020-12-13 | Outpatient (CLI) | payer OTHER ==
[~2020-12-13] MED LIST changes: +ISOVUE-370 76% 100ML VIAL ONE
--- NOTE | 2020-12-13 11:15 | REP ---
INDICATION: BENIGN NEOPLASM OF PINEAL GLAND COMPARISON: CT dated 12/20/2006; MRI dated 10/19/2008 TECHNIQUE: Axial pre and postcontrast images from the skull base to the vertex with coronal reformations using 100 cc Isovue 370 intravenous contrast material.. This CT examination was performed using the following dose reduction techniques: Automated exposure control, adjustment of mA and/or kv according to the patient's size, and use of iterative reconstruction technique. FINDINGS: The ventricles, sulci, and cisterns are normal in position and essentially age-appropriate with mild age-related atrophy suggested. Velásquez-white differentiation is maintained. No acute intracranial hemorrhage, significant mass/mass effect, pathology or trauma/injury. No evidence for acute infarction. No extra-axial fluid collection. Calvarium is intact. Paranasal sinuses and mastoid air cells are clear. Pineal calcifications and small 8 mm pineal cyst again noted and essentially unchanged. No surrounding significant edema or mass effect. IMPRESSION: 1. Mild age-related changes. 2. No acute intracranial process. 3. Stable appearance to the small pineal cyst and adjacent calcifications. <Electronically signed by Tyrell Galindo > 12/13/20 [id number]
== END ==
LOC: M PLAIMG 08:32
PROVIDERS: ATTEND Psychiatry & Neurology Neurology
DX: D35.4 Benign neoplasm of pineal gland (principal)
CPT/HCPCS: 70470; Q9967

== ENCOUNTER → 2021-08-04 | Outpatient (REF) | payer OTHER ==
[~2021-08-04] MED LIST changes: -ISOVUE-370 76% 100ML VIAL ONE
== END ==
LOC: M LAB REF 15:30
PROVIDERS: ATTEND Physician Assistant
DX: J02.9 Acute pharyngitis, unspecified (principal)

== ENCOUNTER → 2021-09-13 | Outpatient (REF) | payer BC ==
[2021-09-13 22:00] LABS: RSV AMPLIFICATION NEGATIVE (NEGATIVE)
== END ==
LOC: M WUC 20:39
PROVIDERS: ATTEND Physician Assistant
DX: J20.9 Acute bronchitis, unspecified (principal); Z20.828 Contact with and (suspected) exposure to other viral communicable diseases

== ENCOUNTER → 2021-10-25 | Outpatient (REF) | LOC: M LABSMTC 10:03 | PROVIDERS: ATTEND Family Medicine | DX: Z11.52 Encounter for screening for COVID-19 (principal) ==

== ENCOUNTER → 2021-12-07 | Outpatient (CLI) | payer BC ==
[2021-12-07 09:47] LABS: BASO # 0.1 10^3/uL (0.0-0.2); BASO % 0.5 % (0.0-1.0); EOS # 0.3 10^3/uL (0.0-0.5); EOS % 3.1 % (0.0-3.0); HEMATOCRIT 41.5 % (42.0-52.0); HEMOGLOBIN 13.7 g/dl (13.5-17.5); LYMPH # 2.9 10^3/uL (1.5-5.0); LYMPH % 30.1 % (24.0-44.0); MEAN CORPUSCULAR HEMOGLOBIN 33.2 pg (27.0-33.0); MEAN CORPUSCULAR VOLUME 100.5 fl (80.0-96.0); MONO % 9.9 % (2.0-8.0); NEUTROPHILS # 5.4 10^3/uL (1.5-8.5); NEUTROPHILS % 55.6 % (36.0-66.0); PLATELET COUNT, AUTOMATED 241 10^3/uL (150-450); RED BLOOD COUNT 4.13 10^6/uL (4.30-6.10); WHITE BLOOD COUNT 9.7 10^3/uL (4.0-10.0)
[2021-12-07 10:40] LABS: ALBUMIN 3.4 GM/DL (3.2-5.2); ALT/SGPT 28 U/L (12-78); BILIRUBIN,TOTAL 0.2 MG/DL (0.2-1.0); BLOOD UREA NITROGEN 25 MG/DL (7-18); CALCIUM LEVEL 9.5 MG/DL (8.8-10.2); CARBON DIOXIDE LEVEL 29 MEQ/L (21-32); CHLORIDE LEVEL 106 MEQ/L (98-107); CREATININE FOR GFR 1.05 MG/DL (0.70-1.30); GLOMERULAR FILTRATION RATE > 60.0 (>49); GLUCOSE, FASTING 100 MG/DL (70-100); POTASSIUM SERUM 4.4 MEQ/L (3.5-5.1); SODIUM LEVEL 138 MEQ/L (136-145); TOTAL PROTEIN 6.6 GM/DL (6.4-8.2)
[2021-12-09 04:08] LABS: HIV-1 RNA PCR QUANT 2 LC550285 <20 copies/mL (.)
== END ==
LOC: M LAB 08:10
PROVIDERS: ATTEND Nurse Practitioner Family
DX: B20 Human immunodeficiency virus [HIV] disease (principal)

== ENCOUNTER → 2022-02-02 | Outpatient (CLI) | payer BC | LOC: M RAD 10:34 | PROVIDERS: ATTEND Internal Medicine Critical Care Medicine | DX: Z87.891 Personal history of nicotine dependence (principal) ==

== ENCOUNTER → 2022-09-13 | Day surgery (SDC) | payer BC ==
[~2022-09-13] VITALS: Ht 162.6 cm; Wt 54.1 kg
[~2022-09-13] MED LIST changes: +BIKT1TAB; +LIDOCAINE 2% 100MG/5ML SDV (FOR ANES.) As Ordered ONE; +NICO21DI38 TD; +NS 1,000 ML IV ONE; +PHENYLephrine 500MCG 5ML (100MCG/ML) SYRINGE As Ordered ONE; +VITA100093 PO; +ePHEDrine SULFATE 25 MG/5 ML(5MG/ML) SYRINGE As Ordered ONE; +propofoL 200 MG/20 ML VIAL As Ordered ONE
[2022-09-13 11:58] VITALS: BP 102/63
== END | disposition home or self-care (01) ==
LOC: M OPP 09:42
PROVIDERS: ATTEND Internal Medicine Gastroenterology
DX: Z12.11 Encounter for screening for malignant neoplasm of colon (principal); K64.0 First degree hemorrhoids; K22.89 Other specified disease of esophagus; K31.89 Other diseases of stomach and duodenum; K63.89 Other specified diseases of intestine; R12 Heartburn; Z79.02 Long term (current) use of antithrombotics/antiplatelets; Z79.51 Long term (current) use of inhaled steroids; Z79.899 Other long term (current) drug therapy; Z88.2 Allergy status to sulfonamides; Z88.6 Allergy status to analgesic agent; Z91.030 Bee allergy status
CPT/HCPCS: 43239; 45385; 88305; J2370

== ENCOUNTER → 2022-12-15 | Outpatient (REF) | payer BC ==
[~2022-12-15] MED LIST changes: -LIDOCAINE 2% 100MG/5ML SDV (FOR ANES.) As Ordered ONE; -NS 1,000 ML IV ONE; -PHENYLephrine 500MCG 5ML (100MCG/ML) SYRINGE As Ordered ONE; -ePHEDrine SULFATE 25 MG/5 ML(5MG/ML) SYRINGE As Ordered ONE; -propofoL 200 MG/20 ML VIAL As Ordered ONE
== END ==
LOC: M LAB REF 16:15
PROVIDERS: ATTEND Internal Medicine
DX: E83.52 Hypercalcemia (principal)

== ENCOUNTER → 2023-02-28 | Outpatient (CLI) | payer BC | LOC: M RAD 07:58 | PROVIDERS: ATTEND Internal Medicine Critical Care Medicine | DX: Z87.891 Personal history of nicotine dependence (principal) ==

== ENCOUNTER 2023-03-06 10:14 | Emergency (ER) | payer BC ==
[~2023-03-06] VITALS: Ht 162.6 cm; Wt 56.5 kg
[2023-03-06] MEDS ORDERED: IBUP200C33 PO (10:28)
[2023-03-06] MEDS ORDERED: DICL50GE TP (10:28)
[2023-03-06] MEDS ORDERED: NICO21DI37 TOP (10:30)
[2023-03-06 12:26] LABS: BASO # 0.1 10^3/uL (0.0-0.2); BASO % 0.5 % (0.0-1.0); EOS # 0.2 10^3/uL (0.0-0.5); EOS % 2.2 % (0.0-3.0); HEMATOCRIT 46.8 % (42.0-52.0); HEMOGLOBIN 15.4 g/dl (13.5-17.5); LYMPH # 3.2 10^3/uL (1.5-5.0); LYMPH % 31.5 % (24.0-44.0); MEAN CORPUSCULAR HEMOGLOBIN 32.8 pg (27.0-33.0); MEAN CORPUSCULAR HGB CONC 32.9 g/dl (32.0-36.5); MEAN CORPUSCULAR VOLUME 99.8 fl (80.0-96.0); MONO # 0.8 10^3/uL (0.0-0.8); MONO % 7.6 % (2.0-8.0); NEUTROPHILS # 5.8 10^3/uL (1.5-8.5); NEUTROPHILS % 57.8 % (36.0-66.0); PLATELET COUNT, AUTOMATED 269 10^3/uL (150-450); RED BLOOD COUNT 4.69 10^6/uL (4.30-6.10); WHITE BLOOD COUNT 10.1 10^3/uL (4.0-10.0)
[2023-03-06] MEDS ORDERED: NS 1,000 ML IV ONE (12:55)
[2023-03-06] MEDS ORDERED: KETOROLAC 30 MG/ML 1ML VIAL IV ONE (12:55)
[2023-03-06 12:57] LABS: ALBUMIN 3.6 G/DL (3.2-5.2); BILIRUBIN,DIRECT 0.1 MG/DL (<0.4); BILIRUBIN,TOTAL 0.4 MG/DL (0.3-1.2); TOTAL PROTEIN 6.4 G/DL (5.7-8.2)
[2023-03-06] MEDS ORDERED: MORPHINE 4 MG/ML 1ML VIAL IV ONE (14:15)
[2023-03-06] MEDS ORDERED: TAMSULOSIN 0.4 MG CAP PO ONE (14:15)
[2023-03-06 15:32] VITALS: BP 119/64; TEMP 96.1; O2SAT 97
[2023-03-06] MEDS ORDERED: FLOM0.4C39 PO (15:38)
[2023-03-06] MEDS ORDERED: HYDR-3713 PO (15:38)
[2023-03-07] MEDS ORDERED: SENN8.6T58 PO (12:49)
[2023-03-07] MEDS ORDERED: FAMO20TA PO (12:49)
[2023-03-07] MEDS ORDERED: IMIT100T PO (12:49)
== END 2023-03-06 15:49 | disposition home or self-care (01) ==
LOC: M ED 10:14
DX: N20.1 Calculus of ureter (principal); I11.9 Hypertensive heart disease without heart failure; I48.91 Unspecified atrial fibrillation; I50.20 Unspecified systolic (congestive) heart failure; I25.10 Atherosclerotic heart disease of native coronary artery without angina pectoris; K21.9 Gastro-esophageal reflux disease without esophagitis; J44.9 Chronic obstructive pulmonary disease, unspecified; Z85.47 Personal history of malignant neoplasm of testis; B20 Human immunodeficiency virus [HIV] disease; F17.200 Nicotine dependence, unspecified, uncomplicated; Z88.8 Allergy status to other drugs, medicaments and biological substances; Z91.030 Bee allergy status; Z79.899 Other long term (current) drug therapy; Z79.51 Long term (current) use of inhaled steroids; Z79.82 Long term (current) use of aspirin
CPT/HCPCS: 74176; 80047; 80076; 81001; 83690; 85025; 96374; 96375; 99284; J1885

== ENCOUNTER → 2023-03-07 | Outpatient (CLI) | payer BC ==
[~2023-03-07] MED LIST changes: +DICL50GE TP; +FAMO20TA PO; +HYDR-3713 PO; +IBUP200C33 PO; +IMIT100T PO; +MACR100C43 PO; +NICO21DI37 TOP; +OXYB5TAB11 PO; +PYRI1TAB5 PO; +SENN8.6T58 PO
== END ==
LOC: M RAD 11:30
PROVIDERS: ATTEND Urology
DX: N20.1 Calculus of ureter (principal)

== ENCOUNTER 2023-03-08 11:10 | Day surgery (SDC) | payer BC ==
[~2023-03-08] VITALS: Ht 162.6 cm; Wt 57.6 kg
[~2023-03-08 11:10] MED LIST changes: -MACR100C43 PO; -OXYB5TAB11 PO; -PYRI1TAB5 PO; +ceFAZolin SOD 2 GM in IV 1 EA IV ONE
[2023-03-08] MEDS ORDERED: LR 1,000 ML IV SCH ×2 (11:50→14:40)
[2023-03-08] MEDS ORDERED: fentaNYL 100 MCG/2 ML INJECTION As Ordered ONE (13:17)
[2023-03-08] MEDS ORDERED: MIDAZOLAM INJ 2MG/2ML VIAL As Ordered ONE (13:17)
[2023-03-08] MEDS ORDERED: propofoL 200 MG/20 ML VIAL As Ordered ONE (13:17)
[2023-03-08] MEDS ORDERED: LIDOCAINE 2% 100MG/5ML SDV (FOR ANES.) As Ordered ONE (13:17)
[2023-03-08] MEDS ORDERED: ISOVUE-300 61% 100ML VIAL As Ordered ONE (13:32)
[2023-03-08] MEDS ORDERED: ONDANSETRON 4MG 2ML VIAL As Ordered ONE (13:33)
[2023-03-08] MEDS ORDERED: ACETAMINOPHEN 1000MG 100ML IV BAG As Ordered ONE (14:02)
[2023-03-08] MEDS ORDERED: ONDANSETRON 4MG 2ML VIAL IV PRN (14:40)
[2023-03-08] MEDS ORDERED: fentaNYL 100 MCG/2 ML INJECTION IV PRN (14:40)
[2023-03-08] MEDS ORDERED: oxyCODONE 5MG TAB PO PRN (14:40)
[2023-03-08] MEDS ORDERED: MACR100C43 PO (14:46)
[2023-03-08] MEDS ORDERED: PYRI1TAB5 PO (14:46)
[2023-03-08] MEDS ORDERED: OXYB5TAB11 PO (14:46)
[2023-03-08 15:55] VITALS: BP 131/68; TEMP 97.4; O2SAT 98
== END 2023-03-08 16:10 | disposition home or self-care (01) ==
LOC: M SDC 11:10
PROVIDERS: ATTEND Urology
DX: N20.1 Calculus of ureter (principal); I48.91 Unspecified atrial fibrillation; I10 Essential (primary) hypertension; B97.35 Human immunodeficiency virus, type 2 [HIV 2] as the cause of diseases classified elsewhere; Z79.82 Long term (current) use of aspirin; Z88.8 Allergy status to other drugs, medicaments and biological substances; Z95.810 Presence of automatic (implantable) cardiac defibrillator; E78.00 Pure hypercholesterolemia, unspecified; F17.210 Nicotine dependence, cigarettes, uncomplicated
CPT/HCPCS: 52356; 76000; 82365; C1769; C1894; C2617; J0131; J1100; J2250; J2405; J3010

== ENCOUNTER → 2023-03-14 | Outpatient (CLI) | payer BC ==
[~2023-03-14] MED LIST changes: +MACR100C43 PO; +OXYB5TAB11 PO; +PYRI1TAB5 PO; -ceFAZolin SOD 2 GM in IV 1 EA IV ONE
== END ==
LOC: M SLEEP 20:00
PROVIDERS: ATTEND Internal Medicine Critical Care Medicine
DX: G47.30 Sleep apnea, unspecified (principal)

== ENCOUNTER 2023-06-01 19:02 | Observation (INO) | payer BC ==
[~2023-06-01] VITALS: Ht 162.6 cm; Wt 55.4 kg
[~2023-06-01 19:02] MED LIST changes: -BIKT1TAB; +BIKT1TAB PO; -OXYB5TAB11 PO; +OXYB5TAB14 PO
[2023-06-01 21:24] LABS: BASO % 0.3 % (0.0-1.0); EOS # 0.2 10^3/uL (0.0-0.5); EOS % 1.8 % (0.0-3.0); HEMATOCRIT 41.7 % (42.0-52.0); HEMOGLOBIN 14.1 g/dl (13.5-17.5); LYMPH # 3.3 10^3/uL (1.5-5.0); LYMPH % 28.5 % (24.0-44.0); MEAN CORPUSCULAR HEMOGLOBIN 33.7 pg (27.0-33.0); MEAN CORPUSCULAR HGB CONC 33.8 g/dl (32.0-36.5); MEAN CORPUSCULAR VOLUME 99.8 fl (80.0-96.0); MONO # 1.1 10^3/uL (0.0-0.8); MONO % 9.9 % (2.0-8.0); NEUTROPHILS # 6.7 10^3/uL (1.5-8.5); PLATELET COUNT, AUTOMATED 250 10^3/uL (150-450); RED BLOOD COUNT 4.18 10^6/uL (4.30-6.10); WHITE BLOOD COUNT 11.4 10^3/uL (4.0-10.0)
[2023-06-01 21:58] LABS: LIPASE 25 U/L (12-53)
[2023-06-01 22:00] LABS: ALBUMIN 3.5 G/DL (3.2-5.2); ALKALINE PHOSPHATASE 58 U/L (46-116); ALT/SGPT 21 U/L (7.0-40); AST/SGOT 11 U/L (<34); BILIRUBIN,DIRECT < 0.1 MG/DL (<0.4); BILIRUBIN,TOTAL 0.3 MG/DL (0.3-1.2); BLOOD UREA NITROGEN 18 MG/DL (9-23); CALCIUM LEVEL 9.6 MG/DL (8.3-10.6); CARBON DIOXIDE LEVEL 27 MMOL/L (20-31); CHLORIDE LEVEL 107 MMOL/L (98-107); CREATININE FOR GFR 1.46 MG/DL (0.70-1.30); GLOMERULAR FILTRATION RATE 51.9 (>49); GLUCOSE, FASTING 83 MG/DL (74-106); POTASSIUM SERUM 4.4 MMOL/L (3.5-5.1); SODIUM LEVEL 138 MMOL/L (136-145); TOTAL PROTEIN 6.2 G/DL (5.7-8.2)
[2023-06-01] MEDS: KETOROLAC 30 MG/ML 1ML VIAL IV ONE (22:01)
[2023-06-01] MEDS: NS 1,000 ML IV ONE (22:01)
[2023-06-01] MEDS: ONDANSETRON 4MG 2ML VIAL IV ONE (22:02)
[2023-06-01] MEDS ORDERED: HYDROmorphone 2 MG TAB PO ONE (23:05)
[2023-06-01] MEDS: HYDROMORPHONE HCL 0.5 MG/ 0.5 ML SYRINGE IV ONE (23:15)
[2023-06-02] MEDS: HYDROMORPHONE HCL 0.5 MG/ 0.5 ML SYRINGE IV ONE (00:18)
[2023-06-02] MEDS ORDERED: MULTTAB61 PO (01:02)
[2023-06-02] MEDS ORDERED: HOME MED LIST COMPLETE! XX SCH (01:05)
[2023-06-02 03:29] VITALS: BP 107/70; TEMP 97.4; O2SAT 98
[2023-06-02] MEDS: CARVedilol 12.5 MG TAB PO SCH (03:42)
[2023-06-02] MEDS: NS 1,000 ML IV SCH (03:42)
[2023-06-02] MEDS ORDERED: ONDANSETRON 4MG 2ML VIAL IV PRN ×2 (04:00→11:10)
[2023-06-02] MEDS: HYDROMORPHONE HCL 0.5 MG/ 0.5 ML SYRINGE IV PRN (06:04)
[2023-06-02 06:51] VITALS: BP 103/72; TEMP 98.2; O2SAT 95
[2023-06-02 07:42] LABS: BASO % 0.4 % (0.0-1.0); EOS # 0.2 10^3/uL (0.0-0.5); HEMATOCRIT 37.8 % (42.0-52.0); HEMOGLOBIN 12.4 g/dl (13.5-17.5); LYMPH # 2.7 10^3/uL (1.5-5.0); LYMPH % 29.5 % (24.0-44.0); MEAN CORPUSCULAR HGB CONC 32.8 g/dl (32.0-36.5); MEAN CORPUSCULAR VOLUME 100.5 fl (80.0-96.0); MONO % 11.2 % (2.0-8.0); NEUTROPHILS # 5.2 10^3/uL (1.5-8.5); NEUTROPHILS % 56.6 % (36.0-66.0); PLATELET COUNT, AUTOMATED 204 10^3/uL (150-450); RED BLOOD COUNT 3.76 10^6/uL (4.30-6.10); WHITE BLOOD COUNT 9.2 10^3/uL (4.0-10.0)
[2023-06-02] MEDS ORDERED: ACETAMINOPHEN TAB 650MG DOSE (2X325MG) PO PRN (07:45)
[2023-06-02 08:00] LABS: BLOOD UREA NITROGEN 18 MG/DL (9-23); CALCIUM LEVEL 8.2 MG/DL (8.3-10.6); CARBON DIOXIDE LEVEL 26 MMOL/L (20-31); CHLORIDE LEVEL 110 MMOL/L (98-107); CREATININE FOR GFR 1.14 MG/DL (0.70-1.30); GLOMERULAR FILTRATION RATE > 60.0 (>49); GLUCOSE, FASTING 84 MG/DL (74-106); SODIUM LEVEL 140 MMOL/L (136-145)
[2023-06-02] MEDS ORDERED: ASPIRIN 325 MG TAB PO SCH (09:00)
[2023-06-02] MEDS ORDERED: **UNRESOLVED NON-FORMULARY MED ORDER XX SCH (09:00)
[2023-06-02] MEDS: ceFAZolin 2 GM/D5W 50 ML IV BAG As Ordered ONE (10:30)
[2023-06-02] MEDS ORDERED: LIDOCAINE 2% JELLY 6ML SYRINGE As Ordered ONE (10:40)
[2023-06-02] MEDS ORDERED: LIDOCAINE 2% 100MG/5ML SDV (FOR ANES.) As Ordered ONE (10:40)
[2023-06-02] MEDS ORDERED: propofoL 200 MG/20 ML VIAL As Ordered ONE (10:40)
[2023-06-02] MEDS ORDERED: ONDANSETRON 4MG 2ML VIAL As Ordered ONE (10:40)
[2023-06-02] MEDS ORDERED: ACETAMINOPHEN 1000MG 100ML IV BAG As Ordered ONE (10:40)
[2023-06-02] MEDS ORDERED: fentaNYL 250 MCG/5 ML INJECTION As Ordered ONE (10:40)
[2023-06-02] MEDS ORDERED: MIDAZOLAM INJ 2MG/2ML VIAL As Ordered ONE (10:40)
[2023-06-02] MEDS ORDERED: PHENYLephrine 500MCG 5ML (100MCG/ML) SYRINGE As Ordered ONE (10:42)
[2023-06-02] MEDS ORDERED: ePHEDrine SULFATE 25 MG/5 ML(5MG/ML) SYRINGE As Ordered ONE (10:42)
[2023-06-02] MEDS ORDERED: oxyCODONE 5MG TAB PO PRN (11:10)
[2023-06-02] MEDS ORDERED: fentaNYL 100 MCG/2 ML INJECTION IV PRN (11:10)
[2023-06-02] MEDS ORDERED: LR 1,000 ML IV SCH (11:10)
[2023-06-02 11:45] VITALS: BP 105/64; TEMP 97.7; O2SAT 92
[2023-06-02] MEDS: FAMOTIDINE 20 MG TAB PO SCH (11:54)
[2023-06-02 11:55] VITALS: BP 105/64
[2023-06-02] MEDS: SENNA 8.6 MG TAB (SENOKOT) PO SCH (11:55)
[2023-06-02] MEDS: DOCUSATE SODIUM 100MG CAPSULE PO SCH (11:55)
[2023-06-02] MEDS: CYANOCOBALAMIN 500 MCG TAB PO SCH (11:55)
[2023-06-02] MEDS ORDERED: FLOM0.4C39 PO (12:22)
[2023-06-02] MEDS ORDERED: LEVO1TAB40 PO (12:22)
[2023-06-02] MEDS ORDERED: OXYC1TAB23 PO (13:14)
[2023-06-02] MEDS ORDERED: SIMVASTATIN 40 MG TAB PO SCH (21:00)
[2023-06-02] MEDS ORDERED: NORTRIPTYLINE 25 MG CAP PO SCH (21:00)
[2023-06-02] MEDS ORDERED: BIKTARVY PO SCH (21:00)
[2023-06-13 07:07] LABS: CA Hydro Phos 70 % (.); Ca Ox Monohydrate 20 % (.); Size 5x7 mm (.)
== END 2023-06-02 13:40 | disposition home or self-care (01) ==
LOC: M ED 19:02 → M ED INP 19:03 → ENRESERV 06-02 01:45 → M MS5PR 06-02 03:36
PROVIDERS: ADMIT Internal Medicine; ATTEND Internal Medicine
DX: N20.1 Calculus of ureter (principal); N21.0 Calculus in bladder; N17.9 Acute kidney failure, unspecified; B20 Human immunodeficiency virus [HIV] disease; I48.91 Unspecified atrial fibrillation; I11.0 Hypertensive heart disease with heart failure; I50.22 Chronic systolic (congestive) heart failure; K21.9 Gastro-esophageal reflux disease without esophagitis; E78.5 Hyperlipidemia, unspecified; J44.9 Chronic obstructive pulmonary disease, unspecified; J45.909 Unspecified asthma, uncomplicated; Z96.0 Presence of urogenital implants; Z95.810 Presence of automatic (implantable) cardiac defibrillator; Z85.47 Personal history of malignant neoplasm of testis; Z87.442 Personal history of urinary calculi; F17.210 Nicotine dependence, cigarettes, uncomplicated; Z88.8 Allergy status to other drugs, medicaments and biological substances; Z91.030 Bee allergy status; Z91.048 Other nonmedicinal substance allergy status; Z79.899 Other long term (current) drug therapy; Z79.82 Long term (current) use of aspirin; Z11.52 Encounter for screening for COVID-19
CPT/HCPCS: 36415; 52352; 74176; 74420; 80048; 80053; 81001; 82248; 82365; 83690; 85025; 87635; 96374; 96375; 96376; 97161; 99284; C1769; J0131; J0690; J1100; J1170; J1885; J2250; J2371; J2405; J3010

== ENCOUNTER → 2023-06-19 | Outpatient (CLI) | payer BC ==
[~2023-06-19] MED LIST changes: +LEVO1TAB40 PO; +MULTTAB61 PO; +OXYC1TAB23 PO
== END ==
LOC: M RAD 08:18
PROVIDERS: ATTEND Urology
DX: N20.0 Calculus of kidney (principal)

== ENCOUNTER → 2023-08-31 | Outpatient (CLI) | payer BC ==
[~2023-08-31] MED LIST changes: +AIMO70IN2
[2023-08-31 12:03] LABS: HEMOGLOBIN 15.6 g/dl (13.5-17.5); MEAN CORPUSCULAR HGB CONC 33.9 g/dl (32.0-36.5); MEAN CORPUSCULAR VOLUME 97.3 fl (80.0-96.0); PLATELET COUNT, AUTOMATED 274 10^3/uL (150-450); RED BLOOD COUNT 4.73 10^6/uL (4.30-6.10); WHITE BLOOD COUNT 16.2 10^3/uL (4.0-10.0)
[2023-08-31 12:29] LABS: ALBUMIN 3.5 G/DL (3.2-5.2); ALKALINE PHOSPHATASE 70 U/L (46-116); ALT/SGPT 20 U/L (7.0-40); AST/SGOT 14 U/L (<34); BILIRUBIN,TOTAL 0.4 MG/DL (0.3-1.2); BLOOD UREA NITROGEN 19 MG/DL (9-23); CALCIUM LEVEL 9.3 MG/DL (8.3-10.6); CARBON DIOXIDE LEVEL 29 MMOL/L (20-31); CHLORIDE LEVEL 102 MMOL/L (98-107); CREATININE FOR GFR 1.04 MG/DL (0.70-1.30); GLOMERULAR FILTRATION RATE > 60.0 (>49); GLUCOSE, FASTING 92 MG/DL (74-106); POTASSIUM SERUM 4.6 MMOL/L (3.5-5.1); SODIUM LEVEL 136 MMOL/L (136-145); TOTAL PROTEIN 6.3 G/DL (5.7-8.2)
== END ==
LOC: M RAD 09:31
PROVIDERS: ATTEND Urology
DX: N20.0 Calculus of kidney (principal); I45.19 Other right bundle-branch block; Z95.0 Presence of cardiac pacemaker

== ENCOUNTER → 2023-08-31 | Outpatient (CLI) | payer BC ==
[2023-08-31 10:45] LABS: APPEARANCE, URINE HAZY (CLEAR); BACTERIA, URINE AUTO NEGATIVE (NEGATIVE); BILIRUBIN, URINE AUTO NEGATIVE (NEGATIVE); BLOOD, URINE BLOOD NEGATIVE (NEGATIVE); COLOR, URINE AMBER (YELLOW); GLUCOSE, URINE (UA) AUTO NEGATIVE (NEGATIVE); KETONE, URINE AUTO NEGATIVE (NEGATIVE); LEUKOCYTE ESTERASE, URINE AUTO NEGATIVE (NEGATIVE); MUCUS, URINE SMALL (NEGATIVE); NITRITE, URINE AUTO NEGATIVE (NEGATIVE); PROTEIN, URINE AUTO NEGATIVE (NEGATIVE); RBC, URINE AUTO 1 /HPF (0-3); SQUAMOUS EPITHELIAL CELL UR AU 0 /HPF (0-6); WBC, URINE AUTO 1 /HPF (0-3)
[2023-08-31 10:48] LABS: BASO # 0.1 10^3/uL (0.0-0.2); BASO % 0.3 % (0.0-1.0); EOS # 0.2 10^3/uL (0.0-0.5); EOS % 0.9 % (0.0-3.0); HEMATOCRIT 45.7 % (42.0-52.0); HEMOGLOBIN 15.3 g/dl (13.5-17.5); LYMPH % 18.4 % (24.0-44.0); MEAN CORPUSCULAR HEMOGLOBIN 33.2 pg (27.0-33.0); MEAN CORPUSCULAR HGB CONC 33.5 g/dl (32.0-36.5); MEAN CORPUSCULAR VOLUME 99.1 fl (80.0-96.0); MONO # 1.1 10^3/uL (0.0-0.8); MONO % 6.7 % (2.0-8.0); NEUTROPHILS # 11.7 10^3/uL (1.5-8.5); PLATELET COUNT, AUTOMATED 282 10^3/uL (150-450); RED BLOOD COUNT 4.61 10^6/uL (4.30-6.10); WHITE BLOOD COUNT 16.1 10^3/uL (4.0-10.0)
[2023-08-31 11:01] LABS: HEMOGLOBIN A1c 5.6 % (4.0-6.0)
[2023-08-31 11:19] LABS: ALBUMIN 3.2 G/DL (3.2-5.2); ALKALINE PHOSPHATASE 67 U/L (46-116); ALT/SGPT 18 U/L (7.0-40); AST/SGOT 12 U/L (<34); BILIRUBIN,TOTAL 0.4 MG/DL (0.3-1.2); BLOOD UREA NITROGEN 19 MG/DL (9-23); CALCIUM LEVEL 9.6 MG/DL (8.3-10.6); CARBON DIOXIDE LEVEL 28 MMOL/L (20-31); CHLORIDE LEVEL 104 MMOL/L (98-107); CHOLESTEROL LEVEL 180 MG/DL (<200); CHOLESTEROL RISK RATIO 4.83 (<5); CREATININE FOR GFR 1.05 MG/DL (0.70-1.30); GLOMERULAR FILTRATION RATE > 60.0 (>49); GLUCOSE, FASTING 96 MG/DL (74-106); HDL CHOLESTEROL 37.2 MG/DL (>40); LDL CHOLESTEROL 114.8 MG/DL (<100); NON-HDL-C 142.8 MG/DL; POTASSIUM SERUM 4.6 MMOL/L (3.5-5.1); SODIUM LEVEL 138 MMOL/L (136-145); TOTAL PROTEIN 6.4 G/DL (5.7-8.2); TRIGLYCERIDES LEVEL 140 MG/DL (<150)
[2023-09-03 15:09] LABS: HIV-1 RNA PCR QUANT 2 LC550285 <20 copies/mL (.)
== END ==
LOC: M LAB 09:29
PROVIDERS: ATTEND Physician Assistant
DX: Z21 Asymptomatic human immunodeficiency virus [HIV] infection status (principal)

== ENCOUNTER → 2023-08-31 | Outpatient (CLI) | payer BC | LOC: M LAB 09:27 | PROVIDERS: ATTEND Internal Medicine | DX: N20.0 Calculus of kidney (principal) ==

== ENCOUNTER 2023-09-06 06:35 | Day surgery (SDC) | payer BC ==
[~2023-09-06] VITALS: Ht 162.6 cm; Wt 58.0 kg
[2023-09-06] MEDS ORDERED: LR 1,000 ML IV SCH ×2 (06:55→10:50)
[2023-09-06] MEDS ORDERED: propofoL 200 MG/20 ML VIAL As Ordered ONE (07:11)
[2023-09-06] MEDS ORDERED: propofoL 500 MG/50 ML VIAL As Ordered ONE (07:11)
[2023-09-06] MEDS ORDERED: AIMO70IN2 SQ (07:56)
[2023-09-06] MEDS ORDERED: ADV250INH INH (07:56)
[2023-09-06] MEDS: ceFAZolin SOD 2 GM in IV 1 EA IV ONE (09:00)
[2023-09-06] MEDS ORDERED: ACETAMINOPHEN 1000MG 100ML IV BAG As Ordered ONE (09:15)
[2023-09-06] MEDS ORDERED: KETOROLAC 60MG 2ML VIAL As Ordered ONE (09:15)
[2023-09-06] MEDS ORDERED: HYDR-3713 PO (10:14)
[2023-09-06] MEDS ORDERED: ONDANSETRON 4MG 2ML VIAL IV PRN (10:50)
[2023-09-06] MEDS ORDERED: fentaNYL 100 MCG/2 ML INJECTION IV PRN (10:50)
[2023-09-06] MEDS: oxyCODONE 5MG TAB PO PRN (11:23)
[2023-09-06 12:05] VITALS: BP 117/74; TEMP 98; O2SAT 95
== END 2023-09-06 12:27 | disposition home or self-care (01) ==
LOC: M SDC 06:35
PROVIDERS: ATTEND Urology
DX: N20.0 Calculus of kidney (principal); I48.91 Unspecified atrial fibrillation; I50.9 Heart failure, unspecified; I34.9 Nonrheumatic mitral valve disorder, unspecified; Z95.810 Presence of automatic (implantable) cardiac defibrillator; B20 Human immunodeficiency virus [HIV] disease; R06.83 Snoring; F17.210 Nicotine dependence, cigarettes, uncomplicated; Z88.8 Allergy status to other drugs, medicaments and biological substances; Z91.030 Bee allergy status; Z79.899 Other long term (current) drug therapy
CPT/HCPCS: 50590; 74018; J0131; J0690; J1885

== ENCOUNTER 2023-09-09 12:43 | Emergency (ER) | payer BC, OTHER, SELFPAY ==
[~2023-09-09] VITALS: Ht 162.6 cm; Wt 56.9 kg
[~2023-09-09 12:43] MED LIST changes: +ADV250INH INH; +AIMO70IN2 SQ
[2023-09-09] MEDS ORDERED: JARD1TAB PO (12:56)
[2023-09-09 13:29] LABS: BASO % 0.3 % (0.0-1.0); EOS # 0.2 10^3/uL (0.0-0.5); EOS % 1.5 % (0.0-3.0); HEMATOCRIT 41.6 % (42.0-52.0); HEMOGLOBIN 14.3 g/dl (13.5-17.5); LYMPH # 3.2 10^3/uL (1.5-5.0); LYMPH % 26.1 % (24.0-44.0); MEAN CORPUSCULAR HEMOGLOBIN 33.3 pg (27.0-33.0); MEAN CORPUSCULAR HGB CONC 34.4 g/dl (32.0-36.5); MEAN CORPUSCULAR VOLUME 96.7 fl (80.0-96.0); MONO # 1.1 10^3/uL (0.0-0.8); MONO % 9.5 % (2.0-8.0); NEUTROPHILS # 7.5 10^3/uL (1.5-8.5); NEUTROPHILS % 61.8 % (36.0-66.0); PLATELET COUNT, AUTOMATED 246 10^3/uL (150-450); WHITE BLOOD COUNT 12.1 10^3/uL (4.0-10.0)
[2023-09-09 13:50] LABS: ALBUMIN 3.4 G/DL (3.2-5.2); ALKALINE PHOSPHATASE 64 U/L (46-116); ALT/SGPT 23 U/L (7.0-40); AST/SGOT 17 U/L (<34); BILIRUBIN,DIRECT < 0.1 MG/DL (<0.4); BILIRUBIN,TOTAL 0.3 MG/DL (0.3-1.2); TOTAL PROTEIN 6.3 G/DL (5.7-8.2)
[2023-09-09] MEDS: cefTRIAXone SOD 1 GM in D5W MINI-BAG PLUS 50 ML IV ONE (15:01)
[2023-09-09 18:17] VITALS: BP 116/69; TEMP 97.4; O2SAT 94
[2023-09-09] MEDS ORDERED: AMOX875T2 PO (18:45)
== END 2023-09-09 18:55 | disposition home or self-care (01) ==
LOC: M ED 12:43
DX: N30.01 Acute cystitis with hematuria (principal); I48.91 Unspecified atrial fibrillation; I50.22 Chronic systolic (congestive) heart failure; I25.119 Atherosclerotic heart disease of native coronary artery with unspecified angina pectoris; I11.0 Hypertensive heart disease with heart failure; E78.5 Hyperlipidemia, unspecified; B20 Human immunodeficiency virus [HIV] disease; F17.210 Nicotine dependence, cigarettes, uncomplicated; Z91.030 Bee allergy status; Z88.8 Allergy status to other drugs, medicaments and biological substances; Z79.1 Long term (current) use of non-steroidal anti-inflammatories (NSAID); Z79.2 Long term (current) use of antibiotics; Z79.810 Long term (current) use of selective estrogen receptor modulators (SERMs); Z79.899 Other long term (current) drug therapy
CPT/HCPCS: 74176; 80047; 80076; 81000; 81015; 85025; 87086; 96365; 96366; 99283; J0696

== ENCOUNTER 2023-09-16 19:37 | Emergency (ER) | payer BC ==
[~2023-09-16] VITALS: Ht 162.6 cm; Wt 57.2 kg
[~2023-09-16 19:37] MED LIST changes: +AMOX875T2 PO; +JARD1TAB PO
[2023-09-16] MEDS: NS 1,000 ML IV ONE ×2 (20:39→22:45)
[2023-09-16] MEDS: KETOROLAC 30 MG/ML 1ML VIAL IV ONE (20:43)
[2023-09-16 20:49] LABS: BASO # 0.1 10^3/uL (0.0-0.2); BASO % 0.3 % (0.0-1.0); EOS # 0.2 10^3/uL (0.0-0.5); EOS % 1.4 % (0.0-3.0); HEMATOCRIT 42.9 % (42.0-52.0); HEMOGLOBIN 14.6 g/dl (13.5-17.5); LYMPH # 3.6 10^3/uL (1.5-5.0); LYMPH % 21.4 % (24.0-44.0); MEAN CORPUSCULAR VOLUME 97.1 fl (80.0-96.0); MONO # 1.5 10^3/uL (0.0-0.8); MONO % 8.6 % (2.0-8.0); NEUTROPHILS # 11.5 10^3/uL (1.5-8.5); NEUTROPHILS % 67.4 % (36.0-66.0); PLATELET COUNT, AUTOMATED 339 10^3/uL (150-450); RED BLOOD COUNT 4.42 10^6/uL (4.30-6.10)
[2023-09-16 21:10] LABS: LIPASE 37 U/L (12-53)
[2023-09-16 21:13] LABS: ALBUMIN 3.3 G/DL (3.2-5.2); ALKALINE PHOSPHATASE 68 U/L (46-116); ALT/SGPT 20 U/L (7.0-40); AST/SGOT 13 U/L (<34); BILIRUBIN,TOTAL < 0.2 MG/DL (0.3-1.2); BLOOD UREA NITROGEN 24 MG/DL (9-23); CALCIUM LEVEL 9.2 MG/DL (8.3-10.6); CARBON DIOXIDE LEVEL 27 MMOL/L (20-31); CHLORIDE LEVEL 108 MMOL/L (98-107); CREATININE FOR GFR 0.94 MG/DL (0.70-1.30); GLOMERULAR FILTRATION RATE > 60.0 (>49); GLUCOSE, FASTING 89 MG/DL (74-106); POTASSIUM SERUM 3.7 MMOL/L (3.5-5.1); SODIUM LEVEL 140 MMOL/L (136-145); TOTAL PROTEIN 6.2 G/DL (5.7-8.2)
[2023-09-16] MEDS ORDERED: ISOVUE-370 76% 100ML VIAL As Ordered ONE (21:22)
[2023-09-16] MEDS: FIDAXOMICIN 200 MG TAB (DIFICID) PO STA (22:45)
[2023-09-16] MEDS ORDERED: DIFI200T PO (23:08)
[2023-09-16 23:20] VITALS: BP 113/65; TEMP 97.8; O2SAT 97
[2023-09-16] MEDS: FIDAXOMICIN 200 MG TAB (DIFICID) PO ONE (23:20)
== END 2023-09-16 23:30 | disposition home or self-care (01) ==
LOC: M ED 19:37
DX: A04.72 Enterocolitis due to Clostridium difficile, not specified as recurrent (principal); I50.22 Chronic systolic (congestive) heart failure; I25.2 Old myocardial infarction; E11.9 Type 2 diabetes mellitus without complications; I11.0 Hypertensive heart disease with heart failure; K21.9 Gastro-esophageal reflux disease without esophagitis; E78.5 Hyperlipidemia, unspecified; G43.909 Migraine, unspecified, not intractable, without status migrainosus; B20 Human immunodeficiency virus [HIV] disease; Z91.030 Bee allergy status; Z91.048 Other nonmedicinal substance allergy status; Z88.8 Allergy status to other drugs, medicaments and biological substances; Z79.1 Long term (current) use of non-steroidal anti-inflammatories (NSAID); Z79.2 Long term (current) use of antibiotics; Z79.810 Long term (current) use of selective estrogen receptor modulators (SERMs); Z79.899 Other long term (current) drug therapy
CPT/HCPCS: 74177; 80053; 83690; 85025; 86140; 87507; 96361; 96374; 99284; J1885; Q9967

== ENCOUNTER → 2023-10-11 | Outpatient (CLI) | payer BC ==
[~2023-10-11] MED LIST changes: +DIFI200T PO
== END ==
LOC: M RAD 08:14
PROVIDERS: ATTEND Urology
DX: N20.0 Calculus of kidney (principal)

== ENCOUNTER → 2023-12-12 | Outpatient (CLI) | payer BC | LOC: M WHC 13:46 | PROVIDERS: ATTEND Physician Assistant | DX: M85.88 Other specified disorders of bone density and structure, other site (principal) ==

== ENCOUNTER → 2024-03-06 | Outpatient (CLI) | payer BC | LOC: M RAD 07:40 | PROVIDERS: ATTEND Internal Medicine Critical Care Medicine | DX: F17.218 Nicotine dependence, cigarettes, with other nicotine-induced disorders (principal) ==

== ENCOUNTER → 2024-03-25 | Outpatient (REF) | payer BC | LOC: M LAB REF 10:53 | PROVIDERS: ATTEND Internal Medicine Pulmonary Disease | DX: J45.40 Moderate persistent asthma, uncomplicated (principal) ==

== ENCOUNTER → 2024-05-30 | Outpatient (CLI) | payer BC ==
[~2024-05-30] MED LIST changes: -ADV250INH INH; +ADVA1AER9 INH
[2024-05-30 17:36] LABS: BASO # 0.1 10^3/uL (0.0-0.2); BASO % 0.5 % (0.0-1.0); EOS # 0.1 10^3/uL (0.0-0.5); HEMATOCRIT 50.3 % (42.0-52.0); HEMOGLOBIN 16.2 g/dl (13.5-17.5); LYMPH # 2.7 10^3/uL (1.5-5.0); LYMPH % 23.6 % (24.0-44.0); MEAN CORPUSCULAR HEMOGLOBIN 31.9 pg (27.0-33.0); MEAN CORPUSCULAR HGB CONC 32.2 g/dl (32.0-36.5); MONO % 8.9 % (2.0-8.0); NEUTROPHILS # 7.5 10^3/uL (1.5-8.5); PLATELET COUNT, AUTOMATED 284 10^3/uL (150-450); RED BLOOD COUNT 5.08 10^6/uL (4.30-6.10); WHITE BLOOD COUNT 11.6 10^3/uL (4.0-10.0)
[2024-05-30 17:57] LABS: ALBUMIN 3.6 G/DL (3.2-5.2); ALKALINE PHOSPHATASE 59 U/L (40-129); ALT/SGPT 19 U/L (7.0-40); AST/SGOT 13 U/L (<34); BILIRUBIN,TOTAL 0.2 MG/DL (0.3-1.2); BLOOD UREA NITROGEN 20 MG/DL (9-23); CALCIUM LEVEL 10.1 MG/DL (8.3-10.6); CARBON DIOXIDE LEVEL 29 MMOL/L (20-31); CHLORIDE LEVEL 103 MMOL/L (98-107); CREATININE FOR GFR 1.13 MG/DL (0.70-1.30); GLOMERULAR FILTRATION RATE > 60.0 (>49); GLUCOSE, FASTING 109 MG/DL (74-106); POTASSIUM SERUM 5.3 MMOL/L (3.5-5.1); SODIUM LEVEL 140 MMOL/L (136-145); TOTAL PROTEIN 6.9 G/DL (5.7-8.2)
[2024-06-02 16:33] LABS: HIV-1 RNA PCR QUANT 2 NOT DETECTED copies/mL (NOT DETECTED); HIV-1 RNA PCR QUANT 3 NOT DETECTED (NOT DETECTED)
== END ==
LOC: M WUC 10:33
PROVIDERS: ATTEND Physician Assistant
DX: Z21 Asymptomatic human immunodeficiency virus [HIV] infection status (principal); E78.2 Mixed hyperlipidemia

== ENCOUNTER → 2024-05-30 | Outpatient (CLI) | payer BC ==
[2024-05-30 16:51] LABS: CHOLESTEROL RISK RATIO 3.67 (<5); HDL CHOLESTEROL 39.5 MG/DL (>40); LDL CHOLESTEROL 78.5 MG/DL (<100); NON-HDL-C 105.5 MG/DL
[2024-06-01 06:33] LABS: LDL DIRECT 93 mg/dL (<100)
== END ==
LOC: M WUC 10:29
PROVIDERS: ATTEND Nurse Practitioner Family
DX: E78.2 Mixed hyperlipidemia (principal)

== ENCOUNTER → 2024-07-30 | Outpatient (CLI) | payer BC ==
[2024-07-30 07:22] LABS: BASO # 0.1 10^3/uL (0.0-0.2); BASO % 0.5 % (0.0-1.0); EOS # 0.3 10^3/uL (0.0-0.5); EOS % 2.9 % (0.0-3.0); HEMATOCRIT 46.9 % (42.0-52.0); HEMOGLOBIN 15.3 g/dl (13.5-17.5); LYMPH # 2.5 10^3/uL (1.5-5.0); LYMPH % 22.1 % (24.0-44.0); MEAN CORPUSCULAR HEMOGLOBIN 32.4 pg (27.0-33.0); MEAN CORPUSCULAR HGB CONC 32.6 g/dl (32.0-36.5); MEAN CORPUSCULAR VOLUME 99.4 fl (80.0-96.0); MONO # 1.1 10^3/uL (0.0-0.8); MONO % 9.7 % (2.0-8.0); NEUTROPHILS # 7.2 10^3/uL (1.5-8.5); NEUTROPHILS % 64.2 % (36.0-66.0); PLATELET COUNT, AUTOMATED 262 10^3/uL (150-450); RED BLOOD COUNT 4.72 10^6/uL (4.30-6.10); WHITE BLOOD COUNT 11.2 10^3/uL (4.0-10.0)
== END ==
LOC: M LAB 06:41
PROVIDERS: ATTEND Internal Medicine
DX: D72.828 Other elevated white blood cell count (principal)

== ENCOUNTER → 2025-03-17 | Outpatient (CLI) | payer BC ==
[~2025-03-17] MED LIST changes: -FLOM0.4C39 PO; +TAMS-18 PO
== END ==
LOC: M RAD 08:27
PROVIDERS: ATTEND Internal Medicine Critical Care Medicine
DX: Z87.891 Personal history of nicotine dependence (principal)